=== PATIENT | male | born 1960 | race Caucasian/White ===

== ENCOUNTER 2019-05-16 20:09 | Inpatient (IN) ==
[2019-05-16] MEDS ORDERED: OPTIRAY 320 125ml IV PRN (20:54)
[2019-05-16 21:00] LABS: Basophils # (auto) 0.02 K/uL (0-0.2); Basophils % (auto) 0.3 %; Eosinophils # (auto) 0.06 K/uL (0-0.5); Hematocrit (blood only) 42.1 % (42-52); Hemoglobin 15.2 g/dL (14.0-18.0); Immature Granulocytes # (auto) 0.01 K/uL (0.00-0.02); Immature Granulocytes % (auto) 0.2 %; Lymphocytes # (auto) 2.27 K/uL (1.2-3.4); Lymphocytes % (auto) 37.9 %; Mean Corpuscular Hgb Conc 36.1 g/dL (32-36); Mean Corpuscular Volume 89.2 fL (80-100); Mean Platelet Volume 10.2 fL (7.4-10.4); Monocytes # (auto) 0.67 K/uL (0.11-0.59); Monocytes % (auto) 11.2 %; Neutrophils # (auto) 2.96 K/uL (1.4-6.5); Neutrophils % (auto) 49.4 %; Platelet Count 238 K/uL (130-400); RDW Coefficient of Variation 13.1 % (11.5-14.5); RDW Standard Deviation 43.1 fL (36.4-46.3); Red Blood Count 4.72 M/uL (4.7-6.1); White Blood Count 5.99 K/uL (4.8-10.8)
--- NOTE | 2019-05-16 21:04 | CT Scan Report ---
CT head/brain wo con CLINICAL HISTORY: 59 years-old Male with Stroke evaluation left facial numbness/aphasia. Acute strok elike symptoms TECHNIQUE: Multiple axial CT images of the head were obtained without contrast. A dose lowering tech nique was utilized adhering to the principles of ALARA. CT DOSE: 1374.67 mGy.cm COMPARISON: None. FINDINGS: No acute intracranial hemorrhage, midline shift, intracranial mass, hydrocephalus, territorial ischem ia or abnormal extra-axial collection. Cerebral vascular calcifications are noted. The calvarium is intact. The paranasal sinuses, mastoid air cells, and middle ear cavities are clear . IMPRESSION: No acute intracranial abnormality. The above report was generated using voice recognition software. It may contain grammatical, syntax o r spelling errors. Electronically signed by: Lebron Zamora M.D. 05/16/2019 9:03 PM
[2019-05-16 21:11] LABS: INR 1.1 (0.9-1.1); Partial Thromboplastin Time 26.2 Seconds (21.0-31.0); Prothrombin Time 11.5 Seconds (9.0-12.0)
[2019-05-16 21:15] LABS: Albumin Level 4.5 gm/dl (3.4-5.0); Blood Urea Nitrogen 12 mg/dl (7-18); Calcium 9.1 mg/dl (8.5-10.1); Carbon Dioxide 28 mmol/L (21-32); Chloride 98 mmol/L (98-107); Glucose 102 mg/dl (70-99); Magnesium 2.2 mg/dl (1.8-2.4); Potassium 3.4 mmol/L (3.5-5.1); Sodium 133 mmol/L (136-145)
[2019-05-16 21:17] LABS: Alanine Aminotransferase 42 U/L (12-78); Aspartate Aminotransferase 30 U/L (15-37); BUN Creatinine Ratio 12.2 (10-20); Creatinine Clr Calc Pharmacy 91.6 ml/min; Est GFR (African American) 94.1; Est GFR (Non-African American) 81.2
--- NOTE | 2019-05-16 21:21 | CT Scan Report ---
CT angio neck with con, CT angio head w con CLINICAL HISTORY: 59 years-old Male with stroke. Acute strokelike symptoms COMPARISON STUDY: CT head of same day TECHNIQUE: Following the IV administration of 116 of Optiray 320, CT angiogram of the head and neck w as performed from the aortic arch to the skull base. Images are reviewed in the axial, sagittal, and coronal planes. 3-D MIPS images are created and assessed. IV contrast was administered without compli cation. All measurements were calculated based on NASCET criteria. A dose lowering technique was uti lized adhering to the principles of ALARA. FINDINGS: Thoracic aortic arch is unremarkable. Patency of the imaged bilateral subclavian arteries. Bilateral common carotid arteries are widely patent. Bilateral internal carotid arteries are also patent and wi thin normal limits. Mild degree of calcified plaque noted about the supraclinoid segments bilaterally . The bilateral middle and anterior cerebral arteries appear patent. The right vertebral artery is do minant. Mild calcified plaque at the origin of the right vertebral artery without significant stenosi s. The left vertebral artery also appears patent. Basilar artery is patent and within normal limits. Patency of the bilateral posterior cerebral arteries. There is no aneurysm, dissection, high-grade st enosis or proximal branch occlusion identified. Cerebral venous sinuses appear patent. No pneumothorax. Homogeneous thyroid. No adenopathy. Patent airway. Mastoid air cells and middle ear cavities are clear. Minimal polypoid mucosal thickening of the maxillary sinuses. Mild leftward bowin g and spurring of the nasal septum. IMPRESSION:Unremarkable CTA of the head and neck without aneurysm, dissection, high-grade stenosis or proximal branch occlusion. The above report was generated using voice recognition software. It may contain grammatical, syntax o r spelling errors. Electronically signed by: Lebron Zamora M.D. 05/16/2019 9:20 PM
[2019-05-16 21:22] LABS: Albumin Globulin Ratio 1.5 (0.9-2); Alkaline Phosphatase 50 U/L (45-117); Bilirubin,Total 0.4 mg/dl (0.2-1); Total Protein 7.5 gm/dl (6.4-8.2); Troponin I < 0.015 ng/ml (0-0.045)
--- NOTE | 2019-05-16 23:28 | History & Physical Report ---
Date of Service May 16, 2019 Assessment & Plan (1) TIA (transient ischemic attack): TIA/numbness and tingling of left side of face/aphasia- CT of head, and CTA of head neck are both normal. Will order MRI brain without contrast. Order arterial hypercoagulable work-up. Order complete echocardiogram. Continue aspirin. Consult neurology. Stroke without TPA protocol. Present on Admission?: Yes (2) Numbness and tingling of left side of face: See above Present on Admission?: Yes (3) Aphasia: See above Present on Admission?: Yes (4) CAD (coronary artery disease), [place] coronary artery: CAD/hypertension/first-degree heart block- The patient will be admitted to telemetry for serial cardiac enzymes, serial EKG's, cardiac rhythm monitoring and a 2-D echocardiogram with Dopplers. Reports having had a cardiac catheterization done a few years ago while in [place], and was told that he had a 40% blockage. On aspirin 81 mg daily, Bystolic 5 mg p.o. at bedtime, verapamil 120 mg p.o. twice daily and valsartan/HCTZ every morning. Hold valsartan/HCTZ for now, due to low sodium and potassium. Present on Admission?: Yes (5) Hypertension: See above Present on Admission?: Yes (6) Atrioventricular block, first degree: See above Present on Admission?: Yes (7) Hyperlipidemia: Continue rosuvastatin 20 mg at bedtime. Check a fasting lipid panel and hemoglobin A1c. Present on Admission?: Yes (8) Asthma: Albuterol HFA 2 puffs every 4 hours as needed Present on Admission?: Yes (9) Gout: Continue allopurinol 100 mg p.o. twice daily Present on Admission?: Yes (10) Allergic rhinitis: Continue Zyrtec 10 mg every morning, montelukast 10 mg daily and Flonase 1 spray each nostril twice daily. Present on Admission?: Yes (11) GERD (gastroesophageal reflux disease): Continue omeprazole 20 mg p.o. daily, may change to pantoprazole 40 mg daily Present on Admission?: Yes History of Present Illness Chief Complaint: The patient presents to the emergency department as a stroke alert, due to symptoms that began about 30 minutes prior to arrival. The Patient and his reports that he had developed a bit of an upset stomach, had gone to the restroom and attempted to move his bowels, and when he returned to the table he was disoriented, unable to clearly get his words out, and developed left facial numbness. His symptoms had resolved by the time of his arrival in the emergency department. He has not had these type of symptoms in the past. He has been doing more physical activity lately, as they have just moved here from [place] 1 month ago, and has just been moving in to their house from a rental apartment over the past 2 weeks. Primary Care Provider: Guero Gonzalez DO Allergies Allergy/AdvReac Type Severity Reaction Status Date / Time No Known Allergies Allergy Verified 05/16/19 21:58 Home Medications Home Medications Medication Instructions Recorded Confirmed Type albuterol sulfate [ProAir HFA] 2 puff INHALATION Q4H PRN 05/16/19 05/16/19 History allopurinol 100 mg PO BID 05/16/19 05/16/19 History aspirin 81 mg PO HS 05/16/19 05/16/19 History cetirizine [Zyrtec] 10 mg PO QAM 05/16/19 05/16/19 History fluticasone propionate [Flonase 1 spray INTRANASAL BID 05/16/19 05/16/19 History Allergy Relief] montelukast 10 mg PO HS 05/16/19 05/16/19 History naproxen 500 mg PO BID PRN 05/16/19 05/16/19 History nebivolol [Bystolic] 5 mg PO HS 05/16/19 05/16/19 History omeprazole 20 mg PO QAM 05/16/19 05/16/19 History rosuvastatin 20 mg PO HS 05/16/19 05/16/19 History valsartan-hydrochlorothiazide 1 tab PO QAM 05/16/19 05/16/19 History verapamil 120 mg PO BID 05/16/19 05/16/19 History Past Med/Surg History Family History Father Myocardial infarction Social History Preferred Language: Danish Communication Ability: Effective Grade Setter Required: No Beliefs That Will Affect Care: None Current Living Situation: Spouse Other Information That Helps Us Care for You: No Feels Safe at Home: Yes Safety Concerns: Feels Safe At This Time Smoking Status: Never smoker Do You Dip or Chew Tobacco: No Second Hand Exposure: No Tobacco Cessation Education Requested by Patient: No Hx Alcohol Use: Yes Alcohol type: beer Hx Substance Use: No Review of Systems Review of Systems: The patient denies chest pain, palpitations, shortness of breath, dyspnea on exertion, cough, lower extremity swelling, sore throat, fevers, chills, sweats, vomiting, diarrhea , constipation, abdominal pain, pelvic pain, blood in urine or stool, dysuria, urinary frequency or urgency, loss of consciousness, rash, abnormal bruising or bleeding, imbalance, focal or generalized weakness, numbness or tingling in arms or legs, generalized arthralgias or myalgias, back or neck pain, or night sweats. The review of systems is otherwise negative other than for that already noted above, and at least 10 systems have been reviewed. Physical Exam Physical Exam: The patient is awake, alert and oriented 3, well developed and well nourished, normocephalic and atraumatic, lying in bed and in no acute distress. HEENT--PERRL, EOMI, mucous membranes and oropharynx normal. Neck--supple. No JVD. No bruits. Thyroid normal, trachea midline, no adenopathy. Heart--normal S1 and S2. No murmurs, rubs or gallops. Lungs--clear bilaterally, no respiratory distress, no accessory muscle use. Abdomen--normal bowel sounds and soft. Nontender. Nondistended. Mildly tympanitic. Extremities--no cyanosis or clubbing. No edema. There are good distal pulses b/l. Dermatologic--normal skin turgor, normal color, no abnormal lymph nodes, no rash. Neurologic--cranial nerves II through XII grossly intact. Rheumatologic--normal range of motion. Psychiatric--normal affect. Results & Data Vital Signs (Past 12 Hours) Vital Signs Temp Pulse Pulse Resp BP BP Pulse Ox 05/16/19 23:16 63 18 120/86 98 05/16/19 22:31 64 18 135/104 H 97 05/16/19 20:18 97.3 F L 60 18 145/93 H 99 Laboratory Results Laboratory Results WBC 5.99 K/uL (4.8-10.8) 05/16/19 20:45 RBC 4.72 M/uL (4.7-6.1) 05/16/19 20:45 Hgb 15.2 g/dL (14.0-18.0) 05/16/19 20:45 Hct 42.1 % (42-52) 05/16/19 20:45 MCV 89.2 fL (80-100) 05/16/19 20:45 MCH 32.2 pg (25-34) 05/16/19 20:45 MCHC 36.1 g/dL (32-36) H 05/16/19 20:45 RDW Std Deviation 43.1 fL (36.4-46.3) 05/16/19 20:45 RDW Coeff of Nafisa 13.1 % (11.5-14.5) 05/16/19 20:45 Plt Count 238 K/uL (130-400) 05/16/19 20:45 MPV 10.2 fL (7.4-10.4) 05/16/19 20:45 Immature Gran % (Auto) 0.2 % 05/16/19 20:45 Neut % (Auto) 49.4 % 05/16/19 20:45 Lymph % (Auto) 37.9 % 05/16/19 20:45 [place] % (Auto) 11.2 % 05/16/19 20:45 Eos % (Auto) 1.0 % 05/16/19 20:45 Baso % (Auto) 0.3 % 05/16/19 20:45 Immature Gran # (Auto) 0.01 K/uL (0.00-0.02) 05/16/19 20:45 Neut # (Auto) 2.96 K/uL (1.4-6.5) 05/16/19 20:45 Lymph # (Auto) 2.27 K/uL (1.2-3.4) 05/16/19 20:45 [place] # (Auto) 0.67 K/uL (0.11-0.59) H 05/16/19 20:45 Eos # (Auto) 0.06 K/uL (0-0.5) 05/16/19 20:45 Baso # (Auto) 0.02 K/uL (0-0.2) 05/16/19 20:45 PT 11.5 Seconds (9.0-12.0) 05/16/19 20:45 INR 1.1 (0.9-1.1) 05/16/19 20:45 APTT 26.2 Seconds (21.0-31.0) 05/16/19 20:45 PTT Ratio 1.0 05/16/19 20:45 Sodium 133 mmol/L (136-145) L 05/16/19 20:45 Potassium 3.4 mmol/L (3.5-5.1) L 05/16/19 20:45 Chloride 98 mmol/L (98-107) 05/16/19 20:45 Carbon Dioxide 28 mmol/L (21-32) 05/16/19 20:45 Anion Gap 7.0 (3-11) 05/16/19 20:45 BUN 12 mg/dl (7-18) 05/16/19 20:45 Creatinine 1.02 mg/dl (0.6-1.4) 05/16/19 20:45 Est Cr Clr Drug Dosing 91.6 ml/min 05/16/19 20:45 Est GFR ( Amer) 94.1 05/16/19 20:45 Est GFR (Non-Af Amer) 81.2 05/16/19 20:45 BUN/Creatinine Ratio 12.2 (10-20) 05/16/19 20:45 Glucose 102 mg/dl (70-99) H 05/16/19 20:45 POC Glucose 107 (70-99) H 05/16/19 20:46 Calcium 9.1 mg/dl (8.5-10.1) 05/16/19 20:45 Magnesium 2.2 mg/dl (1.8-2.4) 05/16/19 20:45 Total Bilirubin 0.4 mg/dl (0.2-1) 05/16/19 20:45 AST 30 U/L (15-37) 05/16/19 20:45 ALT 42 U/L (12-78) 05/16/19 20:45 Alkaline Phosphatase 50 U/L (45-117) 05/16/19 20:45 Troponin I < 0.015 ng/ml (0-0.045) 05/16/19 20:45 Total Protein 7.5 gm/dl (6.4-8.2) 05/16/19 20:45 Albumin 4.5 gm/dl (3.4-5.0) 05/16/19 20:45 Globulin 3.0 gm/dl (2.5-4.0) 05/16/19 20:45 Albumin/Globulin Ratio 1.5 (0.9-2) 05/16/19 20:45 Blood Type A Positive 05/16/19 20:45 Antibody Screen NEGATIVE 05/16/19 20:45 Diagnostic Findings [place], [place] [phone] CT Scan Report Patient: KORINA GR Date: 05/16/19 MR#: [id number]: [address] Acct ID:[id number]: Date: 1960[facility] Zip: [place] [address] Age: 59Location: ED Sex: M Room/Bed: Att Phy: Diagnosis: SICK AT DINNER, CLAMMY, FOGGY, DIZZY Shira Phy: Guero Gonzalez, DOService Date: 05/16/19 Fam Phy: Interpreting Phy: Gabo Zamora Admit Phy: Ordering Phy: Amilcar Porter MD cc: ~ CT angio neck with con, CT angio head w con CLINICAL HISTORY: 59 years-old Male with stroke. Acute strokelike symptoms COMPARISON STUDY: CT head of same day TECHNIQUE: Following the IV administration of 116 of Optiray 320, CT angiogram of the head and neck was performed from the aortic arch to the skull base. Images are reviewed in the axial, sagittal, and coronal planes. 3-D MIPS images are created and assessed. IV contrast was administered without complication. All measurements were calculated based on NASCET criteria. A dose lowering technique was utilized adhering to the principles of ALARA. FINDINGS: Thoracic aortic arch is unremarkable. Patency of the imaged bilateral subclavian arteries. Bilateral common carotid arteries are widely patent. Bilateral internal carotid arteries are also patent and within normal limits. Mild degree of calcified plaque noted about the supraclinoid segments bilaterally. The bilateral middle and anterior cerebral arteries appear patent. The right vertebral artery is dominant. Mild calcified plaque at the origin of the right vertebral artery without significant stenosis. The left vertebral artery also appears patent. Basilar artery is patent and within normal limits. Patency of the bilateral posterior cerebral arteries. There is no aneurysm, dissection, high-grade stenosis or proximal branch occlusion identified. Cerebral venous sinuses appear patent. No pneumothorax. Homogeneous thyroid. No adenopathy. Patent airway. Mastoid air cells and middle ear cavities are clear. Minimal polypoid mucosal thickening of the maxillary sinuses. Mild leftward bowing and spurring of the nasal septum. IMPRESSION:Unremarkable CTA of the head and neck without aneurysm, dissection, high-grade stenosis or proximal branch occlusion. The above report was generated using voice recognition software. It may contain grammatical, syntax or spelling errors. Electronically signed by: Lebron Zamora M.D. 05/16/2019 9:20 PM Dictated: 05/16/192112 Transcribed: 05/16/192112 [place], [place] [phone] CT Scan Report Patient: KORINA GR Date: 05/16/19 MR#: [id number]: [address] [place] [address] Acct ID:[id number]: Date: [address] [place] [address] Zip: [place] [address] Age: 59Location: ED Sex: M Room/Bed: Att Phy: Diagnosis: SICK AT DINNER, CLAMMY, FOGGY, DIZZY Shira Phy: Guero Gonzalez, DOService Date: 05/16/19 Fam Phy: Interpreting Phy: Gabo Zamora Admit Phy: Ordering Phy: Amilcar Porter MD cc: ~ CT head/brain wo con CLINICAL HISTORY: 59 years-old Male with Stroke evaluation left facial numbness/aphasia. Acute strokelike symptoms TECHNIQUE: Multiple axial CT images of the head were obtained without contrast. A dose lowering technique was utilized adhering to the principles of ALARA. CT DOSE: 1374.67 mGy.cm COMPARISON: None. FINDINGS: No acute intracranial hemorrhage, midline shift, intracranial mass, hydrocephalus, territorial ischemia or abnormal extra-axial collection. Cerebral vascular calcifications are noted. The calvarium is intact. The paranasal sinuses, mastoid air cells, and middle ear cavities are clear. IMPRESSION: No acute intracranial abnormality. The above report was generated using voice recognition software. It may contain grammatical, syntax or spelling errors. Electronically signed by: Lebron Zamora M.D. 05/16/2019 9:03 PM Dictated: 05/16/192100 Transcribed: 05/16/192100 Code Status & VTE Plan Code Status Full code VTE Prophylaxis Plan VTE Prophylaxis will be ordered: Yes PG Care Time/CCT Total # of Minutes Spent Total Time Spent with Patient: Total time spent is greater than 50% in coordination of care (as documented) at patient's floor/unit and/or counseling patient:
[2019-05-17] MEDS ORDERED: ONDANSETRON INJ 2 MG/ML 2 ML VIAL IV PRN (00:41)
[2019-05-17] MEDS ORDERED: MAGNESIUM HYDROXIDE SUSP 30 ML UDC PO PRN (00:41)
[2019-05-17] MEDS ORDERED: ALBUTEROL HFA 8 GM INHALER INH PRN (00:41)
[2019-05-17] MEDS ORDERED: NAPROXEN 250 MG TAB PO PRN (00:41)
[2019-05-17] MEDS ORDERED: ALUMINUM/MAGNESIUM SUSP 30 ML UDC PO PRN (00:41)
[2019-05-17] MEDS ORDERED: ACETAMINOPHEN 325 MG TAB PO PRN (00:41)
--- NOTE | 2019-05-17 01:19 | Emergency Department Note ---
Entered by Fátima Erickson acting as a scribe for Amilcar Porter MD History of Present Illness General Chief complaint: Illness Stated complaint: SICK AT DINNER, CLAMMY, FOGGY, DIZZY Source: patient and family () History of Present Illness Provider complaint: difficulty with speech Onset (ago): minute(s) 30 Location: head Pain Consistency: + other (episode) Maximum Pain Intensity: 1 Relieved By: + none Associated symptoms: + other (+upper abdominal pain, +tingling in left side of face ); no chest pain The patient is a 59 year old male who presents to the Emergency Room with complaints of an episode of difficulty of speech that occurred 30 minutes ago. The patient states that he was experiencing difficulty with his speech at 1999 today at dinner. He reports that he felt somewhat ill earlier today but this resolved. He notes that at 194 he felt nauseous after he ate and took a Tums and felt better. He notes that he was experiencing upper abdominal pain and felt like he was experiencing indigestion. He describes the abdominal pain as a pressure-like sensation. He felt like he had to pass gas or burp and he would feel better. He did have some chest discomfort but he described this as reflux. He has had a prior history of reflux. At 1999 the patients reported that the patient seemed confused and was having difficulty responding to her. She states that the patient was diaphoretic and had a heart rate of 53. The patient states that he was able to comprehend what she was saying, but could not process it quickly and had trouble finding words to respond to her. This lasted about 2 minutes but he states that currently he feels like his mentation is slower than usual. The states that the patient did not have slurred speech. She denies that he had a facial droop. The patient denies any loss of consciousness. He notes that he feels lightheaded currently and feels fatigued. He states that he is experiencing tingling on the lower left side of his face. He states that it feels like pins and needles. He stated that this just started while in the ED. The patient reports that his father has a history of a heart attack at 57 and his grandfather also had a heart attack in his 50s. He reports that he had a heart catheterization done 2 years ago which showed 40% lesion in one artery and 20% in another. Home Medications Home Medications Medication Instructions Recorded Confirmed Type albuterol sulfate [ProAir HFA] 2 puff INHALATION Q4H PRN 05/16/19 05/16/19 History allopurinol 100 mg PO BID 05/16/19 05/16/19 History aspirin 81 mg PO HS 05/16/19 05/16/19 History cetirizine [Zyrtec] 10 mg PO QAM 05/16/19 05/16/19 History fluticasone propionate [Flonase 1 spray INTRANASAL BID 05/16/19 05/16/19 History Allergy Relief] montelukast 10 mg PO HS 05/16/19 05/16/19 History naproxen 500 mg PO BID PRN 05/16/19 05/16/19 History nebivolol [Bystolic] 5 mg PO HS 05/16/19 05/16/19 History omeprazole 20 mg PO QAM 05/16/19 05/16/19 History rosuvastatin 20 mg PO HS 05/16/19 05/16/19 History valsartan-hydrochlorothiazide 1 tab PO QAM 05/16/19 05/16/19 History verapamil 120 mg PO BID 05/16/19 05/16/19 History Allergies Allergy/AdvReac Type Severity Reaction Status Date / Time No Known Allergies Allergy Verified 05/16/19 21:58 Past Med/Surg History Family History Father Myocardial infarction Social History Preferred Language: Nicaraguan Communication Ability: Effective Director Of Infection Control Required: No Beliefs That Will Affect Care: None Current Living Situation: Spouse Other Information That Helps Us Care for You: No Feels Safe at Home: Yes Safety Concerns: Feels Safe At This Time Smoking Status: Never smoker Do You Dip or Chew Tobacco: No Second Hand Exposure: No Tobacco Cessation Education Requested by Patient: No Hx Alcohol Use: Yes Alcohol type: beer Hx Substance Use: No Review of Systems See HPI for pertinent positives & negatives. and A total of 10 systems reviewed and were otherwise negative Physical Exam Vital Signs Vital Signs - 24 hr 05/16/19 20:18 05/16/19 22:31 05/16/19 23:16 Temperature 36.3 C L Temperature Source Oral Sepsis Recent Fever Within 48 Hours No Sepsis New/Unexplained Change in Mental Status No Sepsis Action Taken by Nursing No Action Required Pulse Rate 60 Pulse Rate [Apical] 64 63 Respiratory Rate 18 18 18 Blood Pressure 145/93 H Blood Pressure [Right Arm] 135/104 H 120/86 Blood Pressure Mean 110 Blood Pressure Mean [Right Arm] 114 97 Pulse Oximetry 99 97 98 Oxygen Delivery Method Room Air Room Air Constitutional: Vital signs reviewed. Eyes: Pupils are equal round reactive to light. Conjunctiva are noninjected. ENT: Pharynx is clear without erythema or exudate. Mucous membranes are moist. Neck supple without meningeal signs. Respiratory: Clear to auscultation bilaterally. Breath sounds are equal bilaterally. Cardiovascular: Regular rate and rhythm. No rubs or gallops. GI: Soft, nondistended and nontender. Bowel sounds are present. Musculoskeletal: No peripheral edema. No lower extremity tenderness. Integumentary: No cyanosis. Neurological: The patient is awake and alert. Cranial nerves II-XII are intact, except dysesthesia to left upper, mid face, and scalp. Motor is 5 out of 5 all extremities. Sensation is intact to light touch all extremities. Normal speech. No pronator drift. No limb ataxia. Psychiatric: Anxious appearing. Course 2028: The patient was evaluated in room C9, and a complete history and physical examination were performed. 2045: I reevaluated the patient, the states that the patient's last known well was at 1945. I discussed IV TPA with the patient and his , they agreed that it was generally not indicated at this time and has a preference not using it. 2146: I [facility] the [facility], he states that the patient is not likely a TPA candidate. 2146: [facility], he states that the patient might be having an atypical migraine and recommends an MRI. 2154: I reevaluated the patient and updated him on his results, he states that his symptoms have completely resolved. He agrees on the plan to be further evaluated by a hospitalist. 2199: [facility] he will [facility] the patient for further evaluation. Consultations Consultation #1: Dr. Reichwein- [facility] Time: 21:47 Consultation #2: Dr. Stephens- [facility] Hospitalist Time: 22:00 Administered Medications Ioversol (Optiray 320 125ml) 116 ml IV ONCE PRN PRN Reason: Interaction Checking Stop: 05/20/19 20:53 Last Admin: 05/16/19 20:54 Dose: 116 ml Documented by: [id number] Medical Decision Making Differential Diagnosis Differential diagnoses include CVA, TIA, intracranial mass, atypical migraine, ACS, and GERD. Medical Records Attestation: I reviewed the patient's medical records. I did perform a limited focused review of portions of the patient's old chart on the electronic medical record. The patient has had no recent pertinent visits to this hospital. Home Medications Current Medication List: was personally reviewed by me Laboratory Data Attestation: I reviewed the patient's lab results. Result diagrams: 05/16/19 20:45 05/16/19 20:45 Lab Results 05/16/19 05/16/19 05/16/19 Range/Units 20:45 20:45 20:45 WBC 5.99 (4.8-10.8) K/uL RBC 4.72 (4.7-6.1) M/uL Hgb 15.2 (14.0-18.0) g/dL Hct 42.1 (42-52) % MCV 89.2 (80-100) fL MCH 32.2 (25-34) pg MCHC 36.1 H (32-36) g/dL RDW Std Deviation 43.1 (36.4-46.3) fL RDW Coeff of Nafisa 13.1 (11.5-14.5) % Plt Count 238 (130-400) K/uL MPV 10.2 (7.4-10.4) fL Immature Gran % (Auto) 0.2 % Neut % (Auto) 49.4 % Lymph % (Auto) 37.9 % Barron % (Auto) 11.2 % Eos % (Auto) 1.0 % Baso % (Auto) 0.3 % Immature Gran # (Auto) 0.01 (0.00-0.02) K/uL Neut # (Auto) 2.96 (1.4-6.5) K/uL Lymph # (Auto) 2.27 (1.2-3.4) K/uL Barron # (Auto) 0.67 H (0.11-0.59) K/uL Eos # (Auto) 0.06 (0-0.5) K/uL Baso # (Auto) 0.02 (0-0.2) K/uL PT 11.5 (9.0-12.0) Seconds INR 1.1 (0.9-1.1) APTT 26.2 (21.0-31.0) Seconds PTT Ratio 1.0 Sodium 133 L (136-145) mmol/L Potassium 3.4 L (3.5-5.1) mmol/L Chloride 98 (98-107) mmol/L Carbon Dioxide 28 (21-32) mmol/L Anion Gap 7.0 (3-11) BUN 12 (7-18) mg/dl Creatinine 1.02 (0.6-1.4) mg/dl Est Cr Clr Drug Dosing 91.6 ml/min Est GFR ( Amer) 94.1 Est GFR (Non-Af Amer) 81.2 BUN/Creatinine Ratio 12.2 (10-20) Glucose 102 H (70-99) mg/dl POC Glucose (70-99) Calcium 9.1 (8.5-10.1) mg/dl Magnesium 2.2 (1.8-2.4) mg/dl Total Bilirubin 0.4 (0.2-1) mg/dl AST 30 (15-37) U/L ALT 42 (12-78) U/L Alkaline Phosphatase 50 (45-117) U/L Troponin I < 0.015 (0-0.045) ng/ml Total Protein 7.5 (6.4-8.2) gm/dl Albumin 4.5 (3.4-5.0) gm/dl Globulin 3.0 (2.5-4.0) gm/dl Albumin/Globulin Ratio 1.5 (0.9-2) Blood Type Antibody Screen 05/16/19 05/16/19 Range/Units 20:45 20:46 WBC (4.8-10.8) K/uL RBC (4.7-6.1) M/uL Hgb (14.0-18.0) g/dL Hct (42-52) % MCV (80-100) fL MCH (25-34) pg MCHC (32-36) g/dL RDW Std Deviation (36.4-46.3) fL RDW Coeff of Nafisa (11.5-14.5) % Plt Count (130-400) K/uL MPV (7.4-10.4) fL Immature Gran % (Auto) % Neut % (Auto) % Lymph % (Auto) % Barron % (Auto) % Eos % (Auto) % Baso % (Auto) % Immature Gran # (Auto) (0.00-0.02) K/uL Neut # (Auto) (1.4-6.5) K/uL Lymph # (Auto) (1.2-3.4) K/uL Barron # (Auto) (0.11-0.59) K/uL Eos # (Auto) (0-0.5) K/uL Baso # (Auto) (0-0.2) K/uL PT (9.0-12.0) Seconds INR (0.9-1.1) APTT (21.0-31.0) Seconds PTT Ratio Sodium (136-145) mmol/L Potassium (3.5-5.1) mmol/L Chloride (98-107) mmol/L Carbon Dioxide (21-32) mmol/L Anion Gap (3-11) BUN (7-18) mg/dl Creatinine (0.6-1.4) mg/dl Est Cr Clr Drug Dosing ml/min Est GFR ( Amer) Est GFR (Non-Af Amer) BUN/Creatinine Ratio (10-20) Glucose (70-99) mg/dl POC Glucose 107 H (70-99) Calcium (8.5-10.1) mg/dl Magnesium (1.8-2.4) mg/dl Total Bilirubin (0.2-1) mg/dl AST (15-37) U/L ALT (12-78) U/L Alkaline Phosphatase (45-117) U/L Troponin I (0-0.045) ng/ml Total Protein (6.4-8.2) gm/dl Albumin (3.4-5.0) gm/dl Globulin (2.5-4.0) gm/dl Albumin/Globulin Ratio (0.9-2) Blood Type A Positive Antibody Screen NEGATIVE Imaging Data Radiologist's Impression: Radiology results as stated below per my review and the radiologist's interpretation: CT angio neck with con, CT angio head w con CLINICAL HISTORY: 59 years-old Male with stroke. Acute strokelike symptoms COMPARISON STUDY: CT head of same day TECHNIQUE: Following the IV administration of 116 of Optiray 320, CT angiogram of the head and neck was performed from the aortic arch to the skull base. Images are reviewed in the axial, sagittal, and coronal planes. 3-D MIPS images are created and assessed. IV contrast was administered without complication. All measurements were calculated based on NASCET criteria. A dose lowering technique was utilized adhering to the principles of ALARA. FINDINGS: Thoracic aortic arch is unremarkable. Patency of the imaged bilateral subclavian arteries. Bilateral common carotid arteries are widely patent. Bilateral internal carotid arteries are also patent and within normal limits. Mild degree of calcified plaque noted about the supraclinoid segments bilaterally. The bilateral middle and anterior cerebral arteries appear patent. The right vertebral artery is dominant. Mild calcified plaque at the origin of the right vertebral artery without significant stenosis. The left vertebral artery also appears patent. Basilar artery is patent and within normal limits. Patency of the bilateral posterior cerebral arteries. There is no aneurysm, dissection, high-grade stenosis or proximal branch occlusion identified. Cerebral venous sinuses appear patent. No pneumothorax. Homogeneous thyroid. No adenopathy. Patent airway. Mastoid air cells and middle ear cavities are clear. Minimal polypoid mucosal thickening of the maxillary sinuses. Mild leftward bowing and spurring of the nasal septum. IMPRESSION:Unremarkable CTA of the head and neck without aneurysm, dissection, high-grade stenosis or proximal branch occlusion. The above report was generated using voice recognition software. It may contain grammatical, syntax or spelling errors. Electronically signed by: Lebron Zamora M.D. 05/16/2019 9:[address] head/brain wo con CLINICAL HISTORY: 59 years-old Male with Stroke evaluation left facial numbness/aphasia. Acute strokelike symptoms TECHNIQUE: Multiple axial CT images of the head were obtained without contrast. A dose lowering technique was utilized adhering to the principles of ALARA. CT DOSE: 1374.67 mGy.cm COMPARISON: None. FINDINGS: No acute intracranial hemorrhage, midline shift, intracranial mass, hydrocephalus, territorial ischemia or abnormal extra-axial collection. Cerebral vascular calcifications are noted. The calvarium is intact. The paranasal sinuses, mastoid air cells, and middle ear cavities are clear. IMPRESSION: No acute intracranial abnormality. The above report was generated using voice recognition software. It may contain grammatical, syntax or spelling errors. Electronically signed by: Lebron Zamora M.D. 05/16/2019 9:[address] angio neck with con, CT angio head w con CLINICAL HISTORY: 59 years-old Male with stroke. Acute strokelike symptoms COMPARISON STUDY: CT head of same day TECHNIQUE: Following the IV administration of 116 of Optiray 320, CT angiogram of the head and neck was performed from the aortic arch to the skull base. Images are reviewed in the axial, sagittal, and coronal planes. 3-D MIPS images are created and assessed. IV contrast was administered without complication. All measurements were calculated based on NASCET criteria. A dose lowering technique was utilized adhering to the principles of ALARA. FINDINGS: Thoracic aortic arch is unremarkable. Patency of the imaged bilateral subclavian arteries. Bilateral common carotid arteries are widely patent. Bilateral internal carotid arteries are also patent and within normal limits. Mild degree of calcified plaque noted about the supraclinoid segments bilaterally. The bilateral middle and anterior cerebral arteries appear patent. The right vertebral artery is dominant. Mild calcified plaque at the origin of the right vertebral artery without significant stenosis. The left vertebral artery also appears patent. Basilar artery is patent and within normal limits. Patency of the bilateral posterior cerebral arteries. There is no aneurysm, dissection, high-grade stenosis or proximal branch occlusion identified. Cerebral venous sinuses appear patent. No pneumothorax. Homogeneous thyroid. No adenopathy. Patent airway. Mastoid air cells and middle ear cavities are clear. Minimal polypoid mucosal thickening of the maxillary sinuses. Mild leftward bowing and spurring of the nasal septum. IMPRESSION:Unremarkable CTA of the head and neck without aneurysm, dissection, high-grade stenosis or proximal branch occlusion. The above report was generated using voice recognition software. It may contain grammatical, syntax or spelling errors. Electronically signed by: Lebron Zamora M.D. 05/16/2019 9:20 PM ECG Data Attestation: I personally reviewed and interpreted this ECG as follows: Indication: chest pain Rate (beats per minute): 66 Rhythm: sinus rhythm Findings: + 1st degree AV block; no PVC and no ST elevation Blood Pressure Blood Pressure Findings: Elevated blood pressure Blood Pressure Disposition: further management by hospitalist VERONA Narrative I did evaluate the patient as noted above. I did obtain history from the patient as well as his . He is presenting with symptoms concerning for possible CVA. He has expressive aphasia and some confusion and currently states that his mentation is slow. He also stated that he developed tingling and numbness to the left side of his face and scalp while in the ED. He also had some chest discomfort which she describes as reflux and indigestion but has a strong cardiac history and was noted to be diaphoretic by his . He does have a known history of CAD based on his prior catheterization 2 years ago. I did immediately call a stroke alert. IV access was established. The patient was placed on a continuous monitoring engineer. I did order a stat CT of the head as well as CT angiogram of the head and neck. I did review the images myself as well as the radiology report as described above. This did not show any acute abnormality. I did discuss the case with the [place] stroke neurologist to evaluated the patient here via telemedicine. I did order and personally review the patient's 12-lead EKG as described above. He has no acute ischemic changes on his twelve-lead EKG. He does have a first-degree AV block. I did order and review the patient's blood work as noted in the electronic medical record. Troponin is negative. He has mild hypokalemia and hyponatremia. On reassessment the patient states his symptoms are completely resolved. He no longer has tingling to the left side of his face. He feels much better. I did discuss his case with the stroke neurologist who agreed that TPA was not indicated. He did recommend MRI. I did discuss the test results with the patient and recommended hospitalization for MRI and repeat cardiac biomarkers. He was agreeable with this. I did discuss the case with the hospitalist and case fitter. Impression & Plan Aphasia, Numbness and tingling of left side of face, Precordial chest pain, Atrioventricular block, first degree Discharge Plan Visit Data *Final* Discharge Date/Time: 05/17/19 00:14 Chief Complaint: Illness Stated Complaint: SICK AT DINNER, CLAMMY, FOGGY, DIZZY ED Provider: Amilcar Porter Discharge Problem: Aphasia, Numbness and tingling of left side of face, Precordial chest pain, Atrioventricular block, first degree Patient Disposition: Admitted As Inpatient Discharge Instructions Interventions: ED Discharge Assessment Last Done: 05/17/19 00:14 The scribe's documentation has been prepared under my direction and personally reviewed by me in its entirety. I confirm that the note above accurately reflects all work, treatment, procedures, and medical decision making performed by me.
[2019-05-17] MEDS: FLUTICASONE PROPIONATE NA SPR 16 GM BTL SCH ×2 (02:18→08:09)
[2019-05-17] MEDS: ALLOPURINOL 100 MG TAB PO SCH ×2 (02:19→08:09)
[2019-05-17] MEDS: VERAPAMIL HCL 120 MG TABCR PO SCH ×2 (02:20→08:09)
[2019-05-17] MEDS ORDERED: PHARMACIST DISCHARGE MED REC CONSULT PRN (03:48)
[2019-05-17 05:13] LABS: Basophils # (auto) 0.03 K/uL (0-0.2); Basophils % (auto) 0.6 %; Eosinophils # (auto) 0.05 K/uL (0-0.5); Eosinophils % (auto) 0.9 %; Hematocrit (blood only) 43.1 % (42-52); Hemoglobin 15.7 g/dL (14.0-18.0); Immature Granulocytes # (auto) 0.01 K/uL (0.00-0.02); Immature Granulocytes % (auto) 0.2 %; Lymphocytes # (auto) 2.11 K/uL (1.2-3.4); Lymphocytes % (auto) 39.4 %; Mean Corpuscular Hgb Conc 36.4 g/dL (32-36); Mean Corpuscular Volume 88.7 fL (80-100); Monocytes # (auto) 0.45 K/uL (0.11-0.59); Monocytes % (auto) 8.4 %; Neutrophils % (auto) 50.5 %; Platelet Count 236 K/uL (130-400); RDW Coefficient of Variation 13.1 % (11.5-14.5); RDW Standard Deviation 42.6 fL (36.4-46.3); Red Blood Count 4.86 M/uL (4.7-6.1); White Blood Count 5.35 K/uL (4.8-10.8)
[2019-05-17 05:36] LABS: BUN Creatinine Ratio 11.1 (10-20); Blood Urea Nitrogen 10 mg/dl (7-18); Calcium 9.2 mg/dl (8.5-10.1); Carbon Dioxide 27 mmol/L (21-32); Chloride 100 mmol/L (98-107); Creatinine Clr Calc Pharmacy 105.5 ml/min; Est GFR (African American) 110.5; Est GFR (Non-African American) 95.4; Glucose 124 mg/dl (70-99); Potassium 3.2 mmol/L (3.5-5.1); Sodium 135 mmol/L (136-145)
[2019-05-17 05:41] LABS: Chol HDL Ratio 2; Cholesterol 132 mg/dl (0-200); HDL Cholesterol 59 mg/dl; LDL Cholesterol Calculated 42 mg/dl; Triglycerides 156 mg/dl (0-150); Troponin I < 0.015 ng/ml (0-0.045); VLDL Cholesterol 31 mg/dl
[2019-05-17 06:40] LABS: Lyme Ab IgM w/WB Rflx Negative (Negative)
[2019-05-17 06:41] LABS: Lyme Ab IgG w/WB Rflx Negative (Negative)
--- NOTE | 2019-05-17 06:46 | Magnetic Resonance Report ---
MRI OF THE BRAIN WITHOUT IV CONTRAST CLINICAL HISTORY: Left facial numbness. Stroke like symptoms. COMPARISON STUDY: CT of the brain dated 05/16/2019. TECHNIQUE: MRI of the brain was performed utilizing various T1 and T2-weighted sequences in the axial , sagittal, and coronal planes. IV contrast was not administered for this examination. FINDINGS: Brain parenchyma: There is mild subcortical and periventricular microangiopathic disease. There is no hemorrhage or mass effect. There is no restricted diffusion to suggest acute ischemia. Abrams-white ma tter differentiation is preserved. No extra-axial fluid collection is seen. The cerebellar tonsils ar e normal in configuration. Ventricles, sulci, and cisterns: Normal in configuration. Pituitary and sella: Unremarkable. Intracranial vasculature: Normal flow voids are maintained at the skull base. Orbits: The bony orbits are grossly intact. Orbital contents are normal in appearance. Sinuses and mastoids: Clear. Calvarium: Unremarkable. Cervical cord: Partially visualized cervical spinal cord is normal in morphology and signal intensity . IMPRESSION: There is no acute intracranial abnormality. Electronically signed by: Bhaskar Baum M.D. 05/17/2019 6:44 AM
--- NOTE | 2019-05-17 08:34 | Neurology Consultation ---
Date of Consultation May 17, 2019 Assessment & Plan (1) TIA (transient ischemic attack): This patient had episode May 16 consisting of transient word-finding difficulties and slow mentation accompanied by some left lower facial tingling along with some nonspecific symptoms of lightheadedness and feeling tired. All of the symptoms resolved while he was still in the ER and no tPA was given. Patient's blood pressure was elevated when he came to the emergency room and has been mildly elevated since. MRI of the brain showed no stroke but did show mild scattered old small vessel ischemic changes. CT angiography of the head neck were unremarkable for any large or medium vessel stenoses or aneurysms. An echocardiogram is pending. Overall, his event is consistent with a TIA involving the right hemisphere. Alternatively, given his history and hypertension, this could have been a vas ospasm (migraine variant) triggered by hypertension and the stress from the day and heat and humidity. His risk factors for stroke and TIA include hypertension and dyslipidemia. Genetically , he may be susceptible in light of his family history. (2) Hypertension: Patient has a longstanding history of hypertension which was not adequately controlled recently. I note a low potassium and he is on a diuretic not taking potassium supplementation. (3) Hyperlipidemia: Patient has dyslipidemia and currently, on rosuvastatin 20 mg daily, he is doing well, although his triglycerides are till slightly elevated. (4) Chronic cerebral ischemia: Patient has mild old small vessel ischemia scattered. This is likely due to his longstanding hypertension but may be genetic in addition. Recommendations: 1. Awaiting echocardiogram. 2. Consider switching him to clopidogrel 75 mg daily. 3. Control blood pressure as you are doing, aiming for a mean arterial pressure of between 95 and 100. 4. Hemoglobin A1c is pending. He has no history of diabetes. Glucose readings were slightly elevated since admission. 5. The patient has fairly well controlled lipids on his current dose of rosuvastatin. I am not certain he needs high dose statins given his total cho lesterol reading of 132. 6. I can follow up as an outpatient in a couple of weeks, if desired. Overall, I spent a total of 85 minutes with this case including review records, review of MRI films, direct evaluation the patient at bedside, discussion of the case with the patient and his at bedside including reviewing the MRI films at bedside with them, nursing staff at bedside, and Dr. Gonzalez, including differential diagnosis and treatment options. History of Present Illness Reason for Consultation: Patient is a 59-year-old, who I was asked to see the request of Dr. Stephens, for neurologic consultation regarding stroke. Requesting Physician: Dr. Stephens Attending Physician: Munir Gonzalez MD History of Present Illness Patient has a 20 year history of hypertension. He has been on various medications but perhaps has not been quite as controlled recently as he had been in the past. He has some history of coronary artery disease but has never had a history of OR, stroke, diabetes, or cigarette smoking. He does have some mild dyslipidemia has been on rosuvastatin 20 mg daily. He has also been on 81 mg aspirin tablet for the last 8 years. He does not have a history of migraine headaches. Patient up has been doing well physically. He an his family moved from [place] 1 month ago to [facility]. He has been having a little trouble adjusting to the humidity with the heat and has been outside a little more than he was in [place]. On May 16, he was and a work retreat, but felt well throughout the day and had been eating and drinking fluids. Around 330 the afternoon he felt hot and came home needed to cool off and drink fluids. He and his went to eat in the evening and sometime around 730 or so he just did not feel right. He had some GI distress and went to the car and took Tums. He came back and tried to go to the bathroom when he got back to the table sometime closer to 8 o'clock he did not look right according to patient's who was at bedside today. He stated that he did not feel right and felt some tingling along lower left face. He felt slow to get words out. He could understand his but he was slow to respond or formulate a word. According to his he had a bit of a stare and looked clammy and pale. He complained of some chest tightness. He had no stiffness or jerking of the limbs, no incontinence or tongue biting. They drove to the emergency room arriving at 2018, with a blood pressure of 145/113, temperature 36.3, pulse 60, respiratory rate 20, O2 saturation 99%. Arriving at the ER he felt weak and tired with heavy legs. He was lightheaded and felt tingling like pins and needles on the lower part of the left face. Stroke alert was called and he was sent to the CT scan. When he came back from the CT scanner all his symptoms were resolved and he seemed back to normal (according to his like a switch flipped). He did have a very mild bitemporal headache sometime in the ER after the CT scan which lasted perhaps an hour or so. CT scan of the head was unremarkable. CT angiography of the head neck were unremarkable with no significant vessel stenoses or anomalies. CBC was unremarkable. Chem profile showed a sodium of 133 and potassium 3.4. Glucose was 102 and liver was normal. Lyme antibody titer was negative. MRI of the brain showed no acute stroke. There was mild old small vessel ischemic changes scattered throughout the white matter bilaterally diffusely. I reviewed these films. Today, CBC was normal and sodium was 135 with a potassium at 3.2. Blood pressure today is 131/90. He is asymptomatic with no headache. Allergies Allergy/AdvReac Type Severity Reaction Status Date / Time No Known Allergies Allergy Verified 05/16/19 21:58 Home Medications Home Medications Medication Instructions Recorded Confirmed Type albuterol sulfate [ProAir HFA] 2 puff INHALATION Q4H PRN 05/16/19 05/16/19 History allopurinol 100 mg PO BID 05/16/19 05/16/19 History aspirin 81 mg PO HS 05/16/19 05/16/19 History cetirizine [Zyrtec] 10 mg PO QAM 05/16/19 05/16/19 History fluticasone propionate [Flonase 1 spray INTRANASAL BID 05/16/19 05/16/19 History Allergy Relief] montelukast 10 mg PO HS 05/16/19 05/16/19 History naproxen 500 mg PO BID PRN 05/16/19 05/16/19 History nebivolol [Bystolic] 5 mg PO HS 05/16/19 05/16/19 History omeprazole 20 mg PO QAM 05/16/19 05/16/19 History rosuvastatin 20 mg PO HS 05/16/19 05/16/19 History valsartan-hydrochlorothiazide 1 tab PO QAM 05/16/19 05/16/19 History verapamil 120 mg PO BID 05/16/19 05/16/19 History Patient History Surgical History [place] teeth removed Family History Father Myocardial infarction Heart disease Mother Parkinson disease Social History Preferred Language: Irish Communication Ability: Effective Steel Sampler Required: No Beliefs That Will Affect Care: None Current Living Situation: Spouse current occupational status: employed current occupation: [employer] the [employer] at [employer] Other Information That Helps Us Care for You: No Feels Safe at Home: Yes Safety Concerns: Feels Safe At This Time Smoking Status: Never smoker Do You Dip or Chew Tobacco: No Second Hand Exposure: No Tobacco Cessation Education Requested by Patient: No Hx Alcohol Use: Yes Alcohol type: beer Alcohol Intake Frequency Comment: One or 2 beers per week at most. Hx Substance Use: No Review of Systems Constitutional: no fever, no fatigue and no weakness Eyes: no diplopia, no eye pain and no worsening vision Ear, Nose, Mouth, Throat: no ear pain, no tinnitus, no hearing loss, no dizziness, no snoring, no hoarseness and no dysphagia Respiratory: no cough and no dyspnea Cardiovascular: no chest pain, no palpitations and no lightheadedness Gastrointestinal: no abdominal pain, no nausea and no vomiting Genitourinary: no dysuria, no urinary frequency and no urinary incontinence Musculoskeletal: no back pain, no neck pain, no radicular pain, no joint pain and no myalgia Integumentary: no rash and no lesions Neurologic: no gait abnormality, no localized weakness, no generalized weakness, no tingling, no numbness, no tremor(s), no abnormal movements, no headache(s), no abnormal speech, no confusion and no memory loss Psychiatric: no depression, no irritability, no anxiety, no difficulty concentrating, no confusion and no hallucinations Endocrine: no fatigue and no flushing Hematologic / Lymphatic: no easy bleeding and no easy bruising Allergy / Immunological: no urticaria and no problem reported Physical Exam Physical Exam: The patient is right-handed. The patient is awake, alert, and attentive. Speech is normal without any aphasia or dysarthria. Mentation and thought processes are intact, with full orientation and normal fund of knowledge. Attention and concentration are normal. Mood and affect are normal and appropriate. General appearance and grooming are normal. Short and long-term memory are intact. The discs are sharp with positive venous pulsations bilaterally. There are no exudates, hemorrhages, or blood vessel changes seen. Pupils are 4 mm bilaterally and reactive to light. Extraocular eye muscles are intact without nystagmus. Visual acuity and visual almanzar seem normal grossly to confrontation. There are no deficits to sensation in the face in all 3 distributions of the fifth cranial nerve bilaterally. Corneal reflexes are positive bilaterally. Facial strength and symmetry was normal bilaterally. Hearing seems intact grossly to voice and finger rub bilaterally. Palate moves well without asymmetry. There is normal sternocleidomastoid and trapezius (shoulder shrug) strength bilaterally. Tongue is midline with good strength bilaterally. Neck has a full range of motion without discomfort. There are no cervical bruits bilaterally. There are no cranial or ocular bruits. Heart is without murmur. There is a regular rhythm and rate. Cervical, thoracic, and lumbar spine are nontender to palpation. Gait is narrow based, with good arm swing, turns, and stance. Balance is normal eyes open. With outstretched arms there is no drift. There are no resting, postural, or action tremors. There is no ataxia with finger to nose testing. There is good facility in the hands. No other abnormal involuntary movements are noted. Motor strength is 5/5 diffusely in the arms bilaterally including deltoids, biceps, triceps, brachioradialis, wrist flexors and extensors, water and sewer systems supervisor, and intrinsic hand muscles. Motor strength is 5/5 diffusely in the legs bilaterally including hip flexors, quadriceps, hamstrings, gastrocnemius, tibialis anterior, tibialis posterior, and Peroneii muscles bilaterally. Toe extensors are normal and there is good bulk in the extensor digitorum brevis muscles bilaterally. The limbs have good tone without rigidity or spasticity. There is no atrophy noted in the muscles. Muscle bulk is normal, there is no tenderness to palpation, no myotonia to percussion, and no fasciculations seen. Sensory examination is intact to touch and pin throughout all 4 limbs diffusely. Reflexes are 1/4 in the biceps, triceps, brachioradialis, quadriceps, and Achilles tendons bilaterally. Toes are downgoing with plantar stimulation bilaterally. Peripheral pulses are present and of normal quality distally in all 4 limbs. There is no peripheral edema noted in the limbs. Results & Data Vital Signs (Past 12 Hours) Vital Signs Temp Pulse Pulse Resp BP BP Pulse Ox 05/17/19 07:03 36.5 C 67 18 131/90 95 05/17/19 04:00 36.4 C L 78 19 119/77 97 05/17/19 00:53 63 05/17/19 00:45 36.6 C 60 20 149/96 H 97 05/17/19 00:13 62 18 131/101 H 98 05/16/19 23:16 63 18 120/86 98 05/16/19 22:31 64 18 135/104 H 97 05/16/19 20:18 36.3 C L 60 18 145/93 H 99 Diagnostic Findings MRI OF THE BRAIN WITHOUT IV CONTRAST CLINICAL HISTORY: Left facial numbness. Stroke like symptoms. COMPARISON STUDY: CT of the brain dated 05/16/2019. TECHNIQUE: MRI of the brain was performed utilizing various T1 and T2-weighted sequences in the axial, sagittal, and coronal planes. IV contrast was not administered for this examination. FINDINGS: Brain parenchyma: There is mild subcortical and periventricular microangiopathic disease. There is no hemorrhage or mass effect. There is no restricted diffusion to suggest acute ischemia. Abrams-white matter differentiation is preserved. No extra-axial fluid collection is seen. The cerebellar tonsils are normal in configuration. Ventricles, sulci, and cisterns: Normal in configuration. Pituitary and sella: Unremarkable. Intracranial vasculature: Normal flow voids are maintained at the skull base. Orbits: The bony orbits are grossly intact. Orbital contents are normal in appearance. Sinuses and mastoids: Clear. Calvarium: Unremarkable. Cervical cord: Partially visualized cervical spinal cord is normal in morphology and signal intensity. IMPRESSION: There is no acute intracranial abnormality. Electronically signed by: Bhaskar Baum M.D. 05/17/2019 6:44 AM
[2019-05-17] MEDS ORDERED: PANTOprazole 40 MG TAB PO SCH (09:00)
[2019-05-17] MEDS ORDERED: CETIRIZINE HCL 10 MG TABLET PO SCH (09:00)
[2019-05-17] MEDS ORDERED: ASPIRIN 81 MG ECTAB PO SCH ×2 (09:00→21:00)
[2019-05-17] MEDS ORDERED: HEPARIN SOD 5,000 UNIT/0.5 ML VIAL SQ SCH (09:00)
[2019-05-17] MEDS ORDERED: CLOPIDOGREL BISULFATE 75 MG TAB PO ONE (11:44)
[2019-05-17] MEDS ORDERED: STROKE PATIENT DISCHARGE STA (12:12)
--- NOTE | 2019-05-17 14:57 | Pharmacy Report ---
Pharmacist Stroke Counseling - Date of Service May 17, 2019 - Scope: Pharmacy has been consulted to provide medication discharge counseling for this patient admitted with transient ischemic attack as per the Pharmacist Discharge Counseling for Stroke Patients Protocol. - Medications on Discharge: Home Medications Medication Instructions Recorded Confirmed albuterol sulfate [ProAir HFA] 2 puff INHALATION Q4H PRN 05/16/19 05/16/19 allopurinol 100 mg PO BID 05/16/19 05/16/19 aspirin 81 mg PO HS 05/16/19 05/16/19 cetirizine [Zyrtec] 10 mg PO QAM 05/16/19 05/16/19 fluticasone propionate [Flonase 1 spray INTRANASAL BID 05/16/19 05/16/19 Allergy Relief] montelukast 10 mg PO HS 05/16/19 05/16/19 naproxen 500 mg PO BID PRN 05/16/19 05/16/19 nebivolol [Bystolic] 5 mg PO HS 05/16/19 05/16/19 omeprazole 20 mg PO QAM 05/16/19 05/16/19 rosuvastatin 20 mg PO HS 05/16/19 05/16/19 valsartan-hydrochlorothiazide 1 tab PO QAM 05/16/19 05/16/19 verapamil 120 mg PO BID 05/16/19 05/16/19 New Rx's Medication Instructions Recorded clopidogrel [Plavix] 75 mg PO DAILY #30 tab 05/17/19 pantoprazole 20 mg PO DAILY #30 tab 05/17/19 - Action: The above medications, specifically ones for stroke treatment/prophylaxis, have been reviewed in detail with the patient and/or patient claims representative(s) prior to discharge. This includes indication, common adverse reactions, drug interactions, and medication administration. Medication counseling has been employed using the teach-back method to ensure understanding. - Outcome: The patient and/or patient claims representative(s) have demonstrated understanding of the medications. Please note, they are aware that the pharmacist will call them within 72 hours post-discharge to confirm that the appropriate medications are being taken and answer any further medication related questions the patient might have at that time. Contact information Individual to be contacted: Self Relationship to patient (if applicable): Phone number: [phone] Best time to call: anytime Additional comments: Thank you for allowing pharmacy to be involved in the care of this patient. Please call [phone] or [phone] with any additional questions
--- NOTE | 2019-05-17 15:01 | Ultrasound Report ---
BILATERAL LOWER EXTREMITY VENOUS DOPPLER HISTORY: Patent foramen ovale. Transient ischemic attack. Assess for DVT. COMPARISON STUDY: None. FINDINGS: There is normal compressibility, flow, and augmentation within the bilateral lower extremit y deep venous systems. IMPRESSION: No DVT within the right or left lower extremity. Electronically signed by: Mukul Baltazar M.D. 05/17/2019 2:59 PM
--- NOTE | 2019-05-17 18:45 | Discharge Summary ---
Date of Service May 17, 2019 Principal Diagnosis TIA Discharge Exam Constitutional WD/WN, vitals as above Eyes EOM intact bilaterally; no conjunctival abnormality ENMT external ear and nose normal, oropharynx normal Neck trachea midline, no thyromegaly normal visual inspection Respiratory normal respiratory effort, lungs clear to auscultation no respiratory distress Cardiovascular RRR, no murmur, no edema Gastrointestinal (Abdomen) Inspection/Auscultation: abdomen normal to inspection; abdomen not distended Musculoskeletal no cyanosis or clubbing, extremities motor strength 5/5 Skin no rashes, warm and dry Neurologic moves all extremities and awake Psychiatric Orientation: alert, oriented to person and cooperative Discharge Data Allergies Allergy/AdvReac Type Severity Reaction Status Date / Time No Known Allergies Allergy Verified 05/16/19 21:58 Consultations 05/16/19 22:03 ED Decision to Admit Stat 05/17/19 00:41 Consult Case Management - Discharge Planning Routine Consult Neurology Routine 05/17/19 03:49 Consult Case Management - Discharge Planning Routine 05/17/19 12:06 Consult [facility] prospecting driller helper Routine Ordered Studies 05/16/19 20:41 CT angio head w con Stat CT angio neck with con Stat CT head/brain wo con Stat 05/17/19 00:41 MR brain wo con Urgent 05/17/19 14:23 US venous doppler [facility] Urgent Hospital Course (1) TIA (transient ischemic attack): TIA/numbness and tingling of left side of face/aphasia- MRI brain showed no stroke. Echo showed patient PFO, but neurology felt this was non-contributory. His RoPE score is 5, giving him a 35% chance of having his TIA being related to a PFO. He will follow up with a [place] napping machine operator regarding this as outpatient. Switched ASA to Plavix to reduce risk of further stroke (2) Numbness and tingling of left side of face: See above (3) Aphasia: See above (4) CAD (coronary artery disease), [place] coronary artery: Reports having had a cardiac catheterization done a few years ago while in [place], and was told that he had a 40% blockage. - Switched to Plavix from aspirin - Continued other home meds (5) Hypertension: See above (6) Atrioventricular block, first degree: See above (7) Hyperlipidemia: Lipid panel was quite good. Neurology felt that with cholesterol of 130, LDL of 40, and HDL of 60, he did not need to increase his statin. - Continue rosuvastatin 20 mg at bedtime. (8) Asthma: Albuterol HFA 2 puffs every 4 hours as needed (9) Gout: Continue allopurinol 100 mg p.o. twice daily (10) Allergic rhinitis: Continue Zyrtec 10 mg every morning, montelukast 10 mg daily and Flonase 1 spray each nostril twice daily. (11) GERD (gastroesophageal reflux disease): Continue omeprazole 20 mg p.o. daily, may change to pantoprazole 40 mg daily Total Time Total Time Spent Total Time Spent (In Minutes): 35 Total Time Includes: Discharge Planning and Medication Reconciliation Discharge Plan Discharge Items Patient Disposition: Home - Self-Care Reason For Visit: LEFT FACIAL NUMBNESS Discharge Diagnosis: TIA Discharge Goals: Decrease discomfort Activity: Resume your previous activity Non-emergency contact: Primary Care Provider and Neurologist Call non-emergency contact if: your symptoms worsen Follow-up/Referrals: Dorian Cm III, MD [Physician] - (Please see Dr. Cm in 4-6 weeks for follow up.) Guero Gonzalez DO [Primary Care Provider] - Diet: Heart Healthy Addtl Provider Instructions: Mr. Park, You were admitted to the hospital for symptoms that were concerning for a TIA. Luckily, all these symptoms resolved on their own without our intervention. We did an MRI of your brain which did not show any stroke (though this does not rule out the TIA). An echocardiogram of your heart showed a pathway between your atria (called a patent foramen ovale or PFO). You do not need to be in the hospital for this, and Dr. Cm did not think that it even contributed to your symptoms; however, it would be prudent to see a [place] napping machine operator to discuss whether this needs to be closed or not. We are switching you from aspirin to a medication called Plavix (clopidogrel) which is a strong anti-platelet agent. Please take this 1 time per day at approximately the same time each day. Continue your acid reflux medication to help keep your stomach from getting upset. We are switching you from omeprazole to pantoprazole to avoid an interaction with the Plavix. Please return to the hospital if you have any more stroke-like symptoms. Prescriptions: New clopidogrel [Plavix] 75 mg tablet 75 mg PO DAILY Qty: 30 RF: 1 pantoprazole 20 mg tablet,delayed release (DR/EC) 20 mg PO DAILY Qty: 30 RF: 0 Continued cetirizine [Zyrtec] 10 mg Tablet 10 mg PO QAM RF: 0 allopurinol 100 mg Tablet 100 mg PO BID RF: 0 verapamil 120 mg Tablet 120 mg PO BID RF: 0 montelukast 10 mg Tablet 10 mg PO HS RF: 0 albuterol sulfate [ProAir HFA] 90 mcg/actuation Hfa Aerosol Inhaler 2 puff INHALATION Q4H PRN (Reason: Shortness Of Breath Or Wheezing) RF: 0 fluticasone propionate [Flonase Allergy Relief] 50 mcg/actuation [place],Suspension 1 spray INTRANASAL BID RF: 0 naproxen 500 mg Tablet 500 mg PO BID PRN (Reason: Pain) RF: 0 rosuvastatin 20 mg Tablet 20 mg PO HS RF: 0 valsartan-hydrochlorothiazide 320-25 mg Tablet 1 tab PO QAM RF: 0 Bystolic 5 mg Tablet 5 mg PO HS RF: 0 Discontinued aspirin 81 mg Tablet,Delayed Release (Dr/Ec) 81 mg PO HS RF: 0 omeprazole 20 mg Capsule,Delayed Release(Dr/Ec) 20 mg PO QAM RF: 0 Stand-Alone Forms: Medications to Prevent Stroke, [facility] Discharge Orders: Discharge Order (Routine); Ordered 05/17/19 Ordered By: Munir Gonzalez Admission Data Admit Date/Time: 05/16/19 23:27 Attending Provider: Munir Gonzalez Admit Provider: Ramon Stephens Primary Care Provider: Guero Gonzalez Other Providers: Shad Bhatti ; Munir Gonzalez Service: Telemetry Other Interventions: Discharge Summary Assessment (RN) Last Done: 05/17/19 16:08 DC Date/Time DO NOT enter until pt leaves facility: 05/17/19 17:20
[2019-05-17] MEDS ORDERED: ROSUVASTATIN CALCIUM 20 MG TAB PO SCH (21:00)
[2019-05-17] MEDS ORDERED: MONTELUKAST SODIUM 10 MG TABLET PO SCH (21:00)
[2019-05-17] MEDS ORDERED: NEBIVOLOL HCL 5 MG TAB PO SCH (21:00)
[2019-05-19 06:11] LABS: Estimated Average Glucose 120 mg/dl; Hemoglobin A1C 5.8 % (4.5-5.6)
--- NOTE | 2019-05-20 11:19 | Pharmacy Report ---
Pharmacist Post D/C Phone Note - Phone Note: Date of phone call: May 20, 2019. Individual with whom pharmacist spoke to: KORINA Aniya GR The following questions were reviewed during the phone call with responses listed below each: Can you tell me the medications that you are currently taking as well as when and how you take each medication? -See Table Below When have you missed any doses of your medications? - n/a What side effects are you having from your medications, specifically, the new medications you were started on? - none -- Protonix seems to be working as well as Prilosec had been for him. What questions do you have about your medications? - none What problems are you having obtaining your medications? - none When is your next appointment with your primary care doctor? - (05/22/19) Additional comments: - Patient states that everything is going well w/ medications since discharge. As per the Pharmacist Discharge Counseling for Stroke Patients Protocol, this phone call has been completed within 72 hours of discharge. Thank you for allowing us to be involved in the care of this patient. - Home Medications: Home Medications Medication Instructions Recorded Confirmed Bystolic 5 mg PO HS 05/16/19 05/16/19 albuterol sulfate [ProAir HFA] 2 puff INHALATION Q4H PRN 05/16/19 05/16/19 allopurinol 100 mg PO BID 05/16/19 05/16/19 cetirizine [Zyrtec] 10 mg PO QAM 05/16/19 05/16/19 fluticasone propionate [Flonase 1 spray INTRANASAL BID 05/16/19 05/16/19 Allergy Relief] montelukast 10 mg PO HS 05/16/19 05/16/19 naproxen 500 mg PO BID PRN 05/16/19 05/16/19 rosuvastatin 20 mg PO HS 05/16/19 05/16/19 valsartan-hydrochlorothiazide 1 tab PO QAM 05/16/19 05/16/19 verapamil 120 mg PO BID 05/16/19 05/16/19 New Rx's Medication Instructions Recorded clopidogrel [Plavix] 75 mg PO DAILY #30 tab 05/17/19 pantoprazole 20 mg PO DAILY #30 tab 05/17/19
[2019-05-21 15:48] LABS: Anti Cardiolipin Ab IgG <14 GPL (< = 14); Anti Cardiolipin Ab IgM <12 MPL (< = 12); Anti-Cardiolipin Ab IgA <11 APL (< = 11); B2 Glycoprotein IgA <9 SAU (<=20); B2 Glycoprotein IgG <9 SGU (<=20); B2 Glycoprotein IgM <9 SMU (<=20); Ehrlichia chaff IgG Ab <1:64 (<1:64); Ehrlichia chaff IgM Ab <1:20 (<1:20); Lupus Anticoagulant Negative (Negative)
== END 2019-05-17 17:20 | disposition home or self-care (01) | DRG 69 ==
LOC: ED 20:09 → 2S 23:27 → SUATTDRO 23:27 → 2S 05-17 00:14

== ENCOUNTER 2019-06-02 08:05 | Observation (INO) ==
--- NOTE | 2019-06-02 08:25 | Emergency Department Note ---
History of Present Illness General Chief complaint: Allergic Reaction Stated complaint: ALLERGIC RXN Time Seen by Provider: 06/02/19 08:21 History of Present Illness Maximum Pain Intensity: 0 This is a 59-year-old male that presents to the emergency department via private vehicle with complaints of "allergic reaction". The patient states that about 14 days ago he began a new regimen of medication for TIA. He began Plavix and had his omeprazole transition pantoprazole. He states that then this past Sunday, about 10 days into the medication regimen he began with hives. It is diffuse and bilateral involving the axilla, the groin region predominantly in the back. He notes over the past day or so it has moved to his face and now around the mouth. No trouble breathing. No pain. No fevers or chills. He denies any recent infections. No recent infectious symptoms. Home Medications Home Medications Medication Instructions Recorded Confirmed Type albuterol sulfate HFA 90 2 puff INHALATION Q4H PRN 05/22/19 06/02/19 History mcg/actuation aerosol inhaler allopurinol 100 mg tablet 100 mg PO BID #180 tab 05/22/19 06/02/19 Rx cetirizine 10 mg tablet 10 mg PO QAM 05/22/19 06/02/19 History clopidogrel 75 mg tablet 75 mg PO DAILY #90 tab 05/22/19 06/02/19 Rx fluticasone propionate 50 1 spray INTRANASAL BID 05/22/19 06/02/19 History mcg/actuation nasal spray,suspension montelukast 10 mg tablet 10 mg PO HS #90 tab 05/22/19 06/02/19 Rx naproxen 500 mg tablet 500 mg PO BID PRN 05/22/19 06/02/19 History omega-3 fatty acids 1,000 mg 1,000 mg PO DAILY 05/22/19 06/02/19 History capsule pantoprazole 20 mg tablet,delayed 20 mg PO DAILY #90 tab 05/22/19 06/02/19 Rx release rosuvastatin 20 mg tablet 20 mg PO HS #90 tab 05/22/19 06/02/19 Rx valsartan 320 1 tab PO QAM #90 tab 05/22/19 06/02/19 Rx mg-hydrochlorothiazide 25 mg tablet varicella-zoster glycoE [id number] 0.5 ml IM .COMPLEX #1 ea 05/22/19 06/02/19 Rx adj(PF) 50 mcg/0.5 mL IM susp, kit verapamil 120 mg tablet 120 mg PO BID #180 tab 05/22/19 06/02/19 Rx metoprolol succinate 25 mg PO HS 06/02/19 06/02/19 History nebivolol [Bystolic] 5 mg PO HS 06/02/19 06/02/19 History Allergies Allergy/AdvReac Type Severity Reaction Status Date / Time No Known Allergies Allergy Verified 06/02/19 08:24 Past Med/Surg History Medical History Asthma (Chronic) CAD (coronary artery disease), [place] coronary artery (Chronic) GERD (gastroesophageal reflux disease) (Chronic) Hyperlipidemia (Chronic) Hypertension (Chronic) Allergic rhinitis Surgical History H/O right heart catheterization [place] teeth removed Family History Father Myocardial infarction Heart disease Mother Parkinson disease Social History Preferred Language: Dutch Communication Ability: Effective Visual Impairment: No Limitations Hearing Ability: Normal 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 Hx Substance Use: No Childhood Exposure to Second-Hand Smoke: No Dental Care, Regularly: Yes Physical Activity Frequency: 1-2 Times per Week Seatbelt Use: always Review of Systems A total of 10 systems reviewed and were otherwise negative Physical Exam Vital Signs Vital Signs - 24 hr 06/02/19 08:07 06/02/19 08:30 06/02/19 08:50 Temperature 37.2 C Temperature Source Oral Sepsis Recent Fever Within 48 Hours No Sepsis Action Taken by Nursing No Action Required Pulse Rate 68 55 L Pulse Rate [Apical] 53 L Pulse Rate from SpO2 Sensor 56 L Pulse Rhythm Pulse Rhythm [Apical] Regular Pulse Strength [Apical] Normal Respiratory Rate 20 15 Respiratory Effort / Characteristics Non-Labored Non-Labored Spontaneous Non-Labored Spontaneous Respiratory Depth Normal Normal Normal Respiratory Pattern Regular Regular Blood Pressure 105/71 72/42 L Blood Pressure [Right Arm] 72/42 L Blood Pressure Mean 82 52 Blood Pressure Mean [Right Arm] 52 Blood Pressure Position [Right Arm] Lying Pulse Oximetry 96 96 96 Oxygen Delivery Method Room Air Room Air Nasal Cannula Oxygen Flow Rate 2 06/02/19 08:56 06/02/19 09:00 06/02/19 09:07 Temperature Temperature Source Sepsis Recent Fever Within 48 Hours Sepsis Action Taken by Nursing Pulse Rate 54 L 55 L 52 L Pulse Rate [Apical] Pulse Rate from SpO2 Sensor 54 L 55 L 52 L Pulse Rhythm Pulse Rhythm [Apical] Pulse Strength [Apical] Respiratory Rate 13 17 17 Respiratory Effort / Characteristics Respiratory Depth Respiratory Pattern Blood Pressure 83/55 L 83/52 L Blood Pressure [Right Arm] Blood Pressure Mean 64 62 Blood Pressure Mean [Right Arm] Blood Pressure Position [Right Arm] Pulse Oximetry 95 95 97 Oxygen Delivery Method Oxygen Flow Rate 06/02/19 09:15 06/02/19 09:16 06/02/19 09:24 Temperature Temperature Source Sepsis Recent Fever Within 48 Hours Sepsis Action Taken by Nursing Pulse Rate 53 L 53 L 50 L Pulse Rate [Apical] Pulse Rate from SpO2 Sensor 53 L 53 L 54 L Pulse Rhythm Pulse Rhythm [Apical] Pulse Strength [Apical] Respiratory Rate 18 19 21 Respiratory Effort / Characteristics Respiratory Depth Respiratory Pattern Blood Pressure 80/49 L 84/53 L 78/47 L Blood Pressure [Right Arm] Blood Pressure Mean 59 63 57 Blood Pressure Mean [Right Arm] Blood Pressure Position [Right Arm] Pulse Oximetry 97 96 98 Oxygen Delivery Method Oxygen Flow Rate 06/02/19 09:25 06/02/19 09:30 06/02/19 09:45 Temperature Temperature Source Sepsis Recent Fever Within 48 Hours Sepsis Action Taken by Nursing Pulse Rate 51 L 50 L 50 L Pulse Rate [Apical] 51 L Pulse Rate from SpO2 Sensor 51 L 50 L 50 L Pulse Rhythm Regular Pulse Rhythm [Apical] Regular Pulse Strength [Apical] Normal Respiratory Rate 23 22 19 Respiratory Effort / Characteristics Non-Labored Spontaneous Respiratory Depth Normal Respiratory Pattern Regular Blood Pressure 87/60 L 87/58 L 87/64 L Blood Pressure [Right Arm] 87/60 L Blood Pressure Mean 69 67 71 Blood Pressure Mean [Right Arm] 69 Blood Pressure Position [Right Arm] Lying Pulse Oximetry 98 98 98 Oxygen Delivery Method Nasal Cannula Oxygen Flow Rate 2 06/02/19 10:00 06/02/19 10:15 06/02/19 10:30 Temperature Temperature Source Sepsis Recent Fever Within 48 Hours Sepsis Action Taken by Nursing Pulse Rate 53 L 54 L 53 L Pulse Rate [Apical] Pulse Rate from SpO2 Sensor 54 L 54 L 54 L Pulse Rhythm Pulse Rhythm [Apical] Pulse Strength [Apical] Respiratory Rate 24 22 24 Respiratory Effort / Characteristics Respiratory Depth Respiratory Pattern Blood Pressure 89/64 L 98/65 L 92/67 L Blood Pressure [Right Arm] Blood Pressure Mean 72 76 75 Blood Pressure Mean [Right Arm] Blood Pressure Position [Right Arm] Pulse Oximetry 98 97 97 Oxygen Delivery Method Oxygen Flow Rate 06/02/19 10:45 06/02/19 11:00 06/02/19 11:15 Temperature Temperature Source Sepsis Recent Fever Within 48 Hours Sepsis Action Taken by Nursing Pulse Rate 64 56 L 57 L Pulse Rate [Apical] Pulse Rate from SpO2 Sensor 59 L 56 L 58 L Pulse Rhythm Pulse Rhythm [Apical] Pulse Strength [Apical] Respiratory Rate 17 21 20 Respiratory Effort / Characteristics Respiratory Depth Respiratory Pattern Blood Pressure 93/64 L 94/66 L 106/68 Blood Pressure [Right Arm] Blood Pressure Mean 73 75 80 Blood Pressure Mean [Right Arm] Blood Pressure Position [Right Arm] Pulse Oximetry 97 97 97 Oxygen Delivery Method Oxygen Flow Rate 06/02/19 11:30 06/02/19 11:35 06/02/19 11:36 Temperature Temperature Source Sepsis Recent Fever Within 48 Hours Sepsis Action Taken by Nursing Pulse Rate 57 L 56 L 56 L Pulse Rate [Apical] 55 L Pulse Rate from SpO2 Sensor 57 L 55 L 56 L Pulse Rhythm Pulse Rhythm [Apical] Regular Pulse Strength [Apical] Normal Respiratory Rate 16 16 17 Respiratory Effort / Characteristics Non-Labored Spontaneous Respiratory Depth Normal Respiratory Pattern Regular Blood Pressure 100/63 92/54 L Blood Pressure [Right Arm] 92/54 L Blood Pressure Mean 75 66 Blood Pressure Mean [Right Arm] 66 Blood Pressure Position [Right Arm] Lying Pulse Oximetry 97 96 96 Oxygen Delivery Method Nasal Cannula Oxygen Flow Rate 2 06/02/19 11:45 06/02/19 12:00 06/02/19 12:14 Temperature Temperature Source Sepsis Recent Fever Within 48 Hours Sepsis Action Taken by Nursing Pulse Rate 57 L 62 70 Pulse Rate [Apical] Pulse Rate from SpO2 Sensor 57 L 63 71 Pulse Rhythm Pulse Rhythm [Apical] Pulse Strength [Apical] Respiratory Rate 18 20 24 Respiratory Effort / Characteristics Respiratory Depth Respiratory Pattern Blood Pressure 84/54 L 100/54 L Blood Pressure [Right Arm] Blood Pressure Mean 64 69 Blood Pressure Mean [Right Arm] Blood Pressure Position [Right Arm] Pulse Oximetry 97 97 98 Oxygen Delivery Method Oxygen Flow Rate 06/02/19 12:16 06/02/19 12:30 06/02/19 12:45 Temperature Temperature Source Sepsis Recent Fever Within 48 Hours Sepsis Action Taken by Nursing Pulse Rate 71 68 69 Pulse Rate [Apical] Pulse Rate from SpO2 Sensor 72 69 69 Pulse Rhythm Pulse Rhythm [Apical] Pulse Strength [Apical] Respiratory Rate 15 19 19 Respiratory Effort / Characteristics Respiratory Depth Respiratory Pattern Blood Pressure 87/53 L Blood Pressure [Right Arm] Blood Pressure Mean 64 Blood Pressure Mean [Right Arm] Blood Pressure Position [Right Arm] Pulse Oximetry 97 96 96 Oxygen Delivery Method Oxygen Flow Rate 06/02/19 13:00 06/02/19 13:01 Temperature Temperature Source Sepsis Recent Fever Within 48 Hours Sepsis Action Taken by Nursing Pulse Rate 77 78 Pulse Rate [Apical] Pulse Rate from SpO2 Sensor 79 77 Pulse Rhythm Pulse Rhythm [Apical] Pulse Strength [Apical] Respiratory Rate 26 H 20 Respiratory Effort / Characteristics Respiratory Depth Respiratory Pattern Blood Pressure 87/64 L Blood Pressure [Right Arm] Blood Pressure Mean 71 Blood Pressure Mean [Right Arm] Blood Pressure Position [Right Arm] Pulse Oximetry 96 96 Oxygen Delivery Method Oxygen Flow Rate VITAL SIGNS - Vital signs and nursing notes were reviewed. Stable and afebrile GENERAL -59-year-old male is appearing stated age who is in no acute distress. Communicates well with provider and answers questions appropriately. SKIN -homogeneous erythematous rash noted around the patient's mouth, on the superior portion of the eyelids bilaterally, his inferior low back as well as groin region. The axilla and AC joints on the ventral aspect are also involved. He is pale overall. There is diffuse, slightly raised HEAD - NC/AT. EYES - PERRL with EOMI bilaterally. Sclera anicteric. EARS - No deformities of external structures noted on gross examination bilaterally.Tympanic membranes pearly headley without retraction or bulging. No fluid or purulent material visualized behind the TM. Handle of malleus, umbo, cone of light, pars tensa/flaccid all easily visualized. NOSE - Midline and without cyanosis. No epistaxis or purulent drainage noted. Septum midline without deviation or septal hematoma noted. MOUTH/OROPHARYNX - Without perioral cyanosis. Buccal mucosa pink and moist and without leukoplakia. Tongue midline with equal elevation of palate bilaterally. No tonsillar hypertrophy, erythema, or exudates noted. Good dentition noted. NECK - Neck with FROM. Supple to palpation. No lymphadenopathy noted. No nuchal rigidity. LUNGS - Chest wall symmetric without accessory muscle use, intercostals retractions, or central cyanosis. Normal vesicular breath sounds CTA B/L. No wheezes, rales, or rhonchi appreciated. CARDIAC - RRR with S1/S2. No murmur, rubs, or gallops appreciated. ABDOMEN - Abdominal contour normal without pulsations or visible masses. BS normoactive all four quadrants. No tenderness, palpable masses, hepatosple nomegaly, or ascites noted. EXTREMITIES - No clubbing or peripheral cyanosis. No pretibial edema present. +5/5 strength noted in UE/LE bilaterally. NEUROLOGIC - Cranial nerves II through XII grossly intact. Sensory intact to light touch throughout. PSYCH - A&Ox3 and cooperates fully with examiner. Pt is very pleasant and interacts well with examiner. Course Administered Medications Diphenhydramine HCl (Benadryl) 25 mg IV Q6H PRN PRN Reason: ITCH/HIVES Stop: 07/02/19 14:49 Last Admin: 06/02/19 16:01 Dose: 25 mg Documented by: [id number] Sodium Chloride (Nss 1000ml) 1,000 mls @ 125 mls/hr IV .Q8H LATESHA Stop: 07/02/19 14:49 Last Admin: 06/02/19 15:33 Dose: 125 mls/hr Documented by: [id number] Methylprednisolone 40 mg/ (Syringe) 0.64 mls @ 1.5 mls/min IV Q8H LATESHA Stop: 07/02/19 15:59 Last Admin: 06/02/19 16:18 Dose: 1.5 mls/min Documented by: [id number] Discontinued Medications Dexamethasone Sodium Phosphate (Decadron Pf) Confirm Administered Dose 10 mg .ROUTE .STK-MED ONE Stop: 06/02/19 09:07 Last Admin: 06/02/19 09:12 Dose: 10 mg Documented by: [id number] Diphenhydramine HCl (Benadryl) 50 mg IV NOW STA Stop: 06/02/19 08:48 Last Admin: 06/02/19 09:08 Dose: 50 mg Documented by: [id number] Epinephrine HCl (Epinephrine) 0.3 mg IM NOW STA Stop: 06/02/19 11:36 Last Admin: 06/02/19 11:42 Dose: 0.3 mg Documented by: [id number] Epinephrine HCl (Epipen) 0.3 mg IM NOW STA Stop: 06/02/19 12:38 Last Admin: 06/02/19 12:53 Dose: 0.3 mg Documented by: [id number] Famotidine (Pepcid 20mg Iv Push) 20 mg in 5 mls @ 2.5 mls/min IV NOW STA Stop: 06/02/19 08:48 Last Admin: 06/02/19 09:10 Dose: 2.5 mls/min Documented by: [id number] Dexamethasone Sodium Phosphate (10 mg/ Syringe) 2.5 mls @ 1 mls/min IV NOW STA Stop: 06/02/19 08:49 Last Admin: 06/02/19 09:12 Dose: Not Given Documented by: [id number] Sodium Chloride (Nss 1000ml) 1,000 mls @ 999 mls/hr IV .Q1H1M LATESHA Stop: 06/02/19 10:30 Last Infusion: 06/02/19 10:16 Dose: 0 mls/hr Documented by: [id number] Admin: 06/02/19 09:15 Dose: 999 mls/hr Documented by: [id number] Sodium Chloride (Nss 1000ml) 1,000 mls @ 999 mls/hr IV .Q1H1M LATESHA Stop: 06/02/19 12:15 Last Infusion: 06/02/19 12:36 Dose: 0 mls/hr Documented by: [id number] Admin: 06/02/19 11:35 Dose: 999 mls/hr Documented by: [id number] Medical Decision Making Laboratory Data Result diagrams: 06/02/19 08:35 06/02/19 08:35 Lab Results 06/02/19 06/02/19 06/02/19 Range/Units 08:35 08:35 08:35 WBC 7.40 (4.8-10.8) K/uL RBC 4.59 L (4.7-6.1) M/uL Hgb 14.7 (14.0-18.0) g/dL Hct 39.9 L (42-52) % MCV 86.9 (80-100) fL MCH 32.0 (25-34) pg MCHC 36.8 H (32-36) g/dL RDW Std Deviation 40.9 (36.4-46.3) fL RDW Coeff of Nafisa 12.8 (11.5-14.5) % Plt Count 197 (130-400) K/uL MPV 9.5 (7.4-10.4) fL Immature Gran % (Auto) 0.3 % Neut % (Auto) 83.9 % Lymph % (Auto) 10.5 % Trigg % (Auto) 4.7 % Eos % (Auto) 0.5 % Baso % (Auto) 0.1 % Immature Gran # (Auto) 0.02 (0.00-0.02) K/uL Neut # (Auto) 6.20 (1.4-6.5) K/uL Lymph # (Auto) 0.78 L (1.2-3.4) K/uL Trigg # (Auto) 0.35 (0.11-0.59) K/uL Eos # (Auto) 0.04 (0-0.5) K/uL Baso # (Auto) 0.01 (0-0.2) K/uL PT 12.8 H (9.0-12.0) Seconds INR 1.3 H (0.9-1.1) APTT 27.6 (21.0-31.0) Seconds PTT Ratio 1.0 Sodium 127 L (136-145) mmol/L Potassium 3.8 (3.5-5.1) mmol/L Chloride 93 L (98-107) mmol/L Carbon Dioxide 24 (21-32) mmol/L Anion Gap 10.0 (3-11) BUN 14 (7-18) mg/dl Creatinine 1.11 (0.6-1.4) mg/dl Est Cr Clr Drug Dosing Not Reportable Est GFR ( Amer) 85.0 Est GFR (Non-Af Amer) 73.3 BUN/Creatinine Ratio 12.8 (10-20) Glucose 124 H (70-99) mg/dl Calcium 9.8 (8.5-10.1) mg/dl Total Bilirubin 1.5 H (0.2-1) mg/dl AST 24 (15-37) U/L ALT 30 (12-78) U/L Alkaline Phosphatase 44 L (45-117) U/L Total Creatine Kinase (39-308) U/L Troponin I (0-0.045) ng/ml NT-Pro-B Natriuret Pep (0-900) pg/ml Total Protein 7.0 (6.4-8.2) gm/dl Albumin 3.9 (3.4-5.0) gm/dl Globulin 3.1 (2.5-4.0) gm/dl Albumin/Globulin Ratio 1.3 (0.9-2) Lyme Disease IgG Ab (Negative) Lyme Disease IgM Ab (Negative) 06/02/19 06/02/19 06/02/19 Range/Units 08:35 08:35 08:35 WBC (4.8-10.8) K/uL RBC (4.7-6.1) M/uL Hgb (14.0-18.0) g/dL Hct (42-52) % MCV (80-100) fL MCH (25-34) pg MCHC (32-36) g/dL RDW Std Deviation (36.4-46.3) fL RDW Coeff of Nafisa (11.5-14.5) % Plt Count (130-400) K/uL MPV (7.4-10.4) fL Immature Gran % (Auto) % Neut % (Auto) % Lymph % (Auto) % Trigg % (Auto) % Eos % (Auto) % Baso % (Auto) % Immature Gran # (Auto) (0.00-0.02) K/uL Neut # (Auto) (1.4-6.5) K/uL Lymph # (Auto) (1.2-3.4) K/uL Trigg # (Auto) (0.11-0.59) K/uL Eos # (Auto) (0-0.5) K/uL Baso # (Auto) (0-0.2) K/uL PT (9.0-12.0) Seconds INR (0.9-1.1) APTT (21.0-31.0) Seconds PTT Ratio Sodium (136-145) mmol/L Potassium (3.5-5.1) mmol/L Chloride (98-107) mmol/L Carbon Dioxide (21-32) mmol/L Anion Gap (3-11) BUN (7-18) mg/dl Creatinine (0.6-1.4) mg/dl Est Cr Clr Drug Dosing Est GFR ( Amer) Est GFR (Non-Af Amer) BUN/Creatinine Ratio (10-20) Glucose (70-99) mg/dl Calcium (8.5-10.1) mg/dl Total Bilirubin (0.2-1) mg/dl AST (15-37) U/L ALT (12-78) U/L Alkaline Phosphatase (45-117) U/L Total Creatine Kinase 260 (39-308) U/L Troponin I < 0.015 (0-0.045) ng/ml NT-Pro-B Natriuret Pep 240 (0-900) pg/ml Total Protein (6.4-8.2) gm/dl Albumin (3.4-5.0) gm/dl Globulin (2.5-4.0) gm/dl Albumin/Globulin Ratio (0.9-2) Lyme Disease IgG Ab Negative (Negative) Lyme Disease IgM Ab Negative (Negative) MDM Narrative Patient was seen and evaluated as above in room B 10. Review was performed of nursing notes and vital signs. After obtaining a thorough history and physical examination the above work up was performed. He presents to us today with suspected allergic reaction. He has no evidence of infection or subjective complaints of infectious symptoms. He has a tremendous amount of hives, particularly in the AC joint, axilla, low back and groin bilaterally. He began 14 days ago taking Plavix, fish oil, as well as pantoprazole. These are the only changes that he is aware of prior to beginning the suspect allergic reaction. Shortly after the IV placement the patient became hypotensive and initially it was thought that this is likely a vasovagal response to this. Unfortunately his hypotension persisted for almost half an hour and it was felt that this could be related to the allergic reaction. Concern was for anaphylaxis. Fluids were provided, he was bolused with 1 L of fluid. His pressure responded to this quite well and his symptoms did as well. He was also medicated with IV Decadron, Benadryl and Pepcid. I suspect this is likely an allergic reaction. Of additional history, he notes that his biological mother has had to ICU stay secondary to allergic reaction from generic medication binders/fillers. He notes that the Plavix prescription is generic. He did not take it last night. The patient was reevaluated and began with bilateral hand edema. For this reason it was felt that anaphylaxis was likely developing and he was given IM epinephrine. He had near immediate improvement of his symptoms. Throughout his stay his blood pressure has at times been low but responded well with the fluids. I again do not suspect any infectious etiology and do not suspect sepsis. Because of the patient's symptoms it was felt that he warranted inpatient management to trend the suspect allergic reaction. Case discussed with the attending physician as well as the hospitalist. Please refer to further documentation regarding his stay. Labs reveal no leukocytosis or significant anemia. There is hyponatremia at 127. T bili at 1.5. Troponin is negative. Urinalysis is negative. Lyme testing negative. He is EKG reveals sinus bradycardia at a rate of 51 bpm. TWI in the inferior leads noted. GCS: 15 In the evaluation and treatment of this patient the following differential diagnoses were entertained: Anaphylaxis, allergic reaction, sepsis, cellulitis, among others. Impression & Plan Anaphylactic reaction Discharge Plan Visit Data *Final* Discharge Date/Time: 06/02/19 14:06 Chief Complaint: Allergic Reaction Stated Complaint: ALLERGIC RXN ED Provider: Alonso Meyer ED Midlevel Provider: Mat Mccullough Discharge Problem: Anaphylactic reaction Patient Disposition: Admitted As Inpatient Condition: Good Discharge Instructions Interventions: ED Discharge Assessment Last Done: 06/02/19 14:06
[2019-06-02 08:45] LABS: Basophils # (auto) 0.01 K/uL (0-0.2); Basophils % (auto) 0.1 %; Eosinophils # (auto) 0.04 K/uL (0-0.5); Eosinophils % (auto) 0.5 %; Hematocrit (blood only) 39.9 % (42-52); Hemoglobin 14.7 g/dL (14.0-18.0); Immature Granulocytes # (auto) 0.02 K/uL (0.00-0.02); Immature Granulocytes % (auto) 0.3 %; Lymphocytes # (auto) 0.78 K/uL (1.2-3.4); Lymphocytes % (auto) 10.5 %; Mean Corpuscular Hgb Conc 36.8 g/dL (32-36); Mean Corpuscular Volume 86.9 fL (80-100); Mean Platelet Volume 9.5 fL (7.4-10.4); Monocytes # (auto) 0.35 K/uL (0.11-0.59); Monocytes % (auto) 4.7 %; Neutrophils % (auto) 83.9 %; Platelet Count 197 K/uL (130-400); RDW Coefficient of Variation 12.8 % (11.5-14.5); RDW Standard Deviation 40.9 fL (36.4-46.3); Red Blood Count 4.59 M/uL (4.7-6.1)
[2019-06-02] MEDS ORDERED: DiphenhydrAMINE HCL 50 MG/ML VIAL IV STA (08:47)
[2019-06-02] MEDS ORDERED: FAMOTIDINE 20MG IV PUSH 20 MG/5 ML SYR IV STA (08:47)
[2019-06-02] MEDS ORDERED: DEXAMETHASONE SOD PHOSPHATE 10 MG in SYRINGE 0 ML IV STA (08:47)
[2019-06-02 08:58] LABS: INR 1.3 (0.9-1.1); Partial Thromboplastin Time 27.6 Seconds (21.0-31.0); Prothrombin Time 12.8 Seconds (9.0-12.0)
[2019-06-02] MEDS ORDERED: DEXAMETHASONE **PF** INJ 10 MG/ML VIAL ONE (09:06)
[2019-06-02 09:07] LABS: Alanine Aminotransferase 30 U/L (12-78); Albumin Level 3.9 gm/dl (3.4-5.0); Aspartate Aminotransferase 24 U/L (15-37); BUN Creatinine Ratio 12.8 (10-20); Blood Urea Nitrogen 14 mg/dl (7-18); Calcium 9.8 mg/dl (8.5-10.1); Carbon Dioxide 24 mmol/L (21-32); Chloride 93 mmol/L (98-107); Est GFR (Non-African American) 73.3; Glucose 124 mg/dl (70-99); Potassium 3.8 mmol/L (3.5-5.1); Sodium 127 mmol/L (136-145)
[2019-06-02 09:09] LABS: Albumin Globulin Ratio 1.3 (0.9-2); Alkaline Phosphatase 44 U/L (45-117); Bilirubin,Total 1.5 mg/dl (0.2-1); Globulin 3.1 gm/dl (2.5-4.0)
[2019-06-02] MEDS ORDERED: SODIUM CHLORIDE 0.9% 1000ML 1,000 ML IV SCH ×2 (09:30→11:15)
[2019-06-02 09:38] LABS: Creatine Kinase 260 U/L (39-308); Troponin I < 0.015 ng/ml (0-0.045)
[2019-06-02 09:44] LABS: Lyme Ab IgG w/WB Rflx Negative (Negative); Lyme Ab IgM w/WB Rflx Negative (Negative)
[2019-06-02] MEDS ORDERED: EPINEPHrine INJ 1 MG/ML AMP IM STA (11:35)
[2019-06-02] MEDS ORDERED: EPINEPHRINE ADULT AUTO-INJECT 0.3 MG SYR IM STA (12:37)
--- NOTE | 2019-06-02 13:04 | History & Physical Report ---
Date of Service June 02, 2019 Assessment & Plan (1) Anaphylactic reaction: Admit to to PCU on telemetry -Vital signs every 4 hours -Continue IV fluid hydration -Solu-Medrol 40 mg every 8 hours -Benadryl 25 mg every 6 hours IV -EpiPen 0.3 mg IM hives -Famotidine 20 mg IV daily -DVT prophylaxis Lovenox -Full code Present on Admission?: Yes (2) CAD (coronary artery disease), [place] coronary artery: Stable at this time. Troponin 0 0.015. Continue home medicine. -Metoprolol succinate 25 mg p.o. nightly, -Clopidogrel 75 mg tablet -nebivolol 5 mg p.o. nightly Present on Admission?: Yes (3) GERD (gastroesophageal reflux disease): Continue famotidine 20 mg IV daily Present on Admission?: Yes (4) Hypertension: As the above -Heart healthy diet, low-sodium Present on Admission?: Yes (5) Gout: Stable continue allopurinol pulmonal 100 mg tablet p.o. twice daily History of Present Illness EKG bradycardia 51 otherwise normal sinus rhythm Chief Complaint: Anaphylactic reaction Primary Care Provider: Guero Gonzalez DO Patient is a 59 [id number] male male with past medical history of TIA, asthma, coronary artery disease, GERD, hyperlipidemia, hypertension, allergic rhinitis, gout presents to the emergency room brought by his with a complaint that since Sunday he starts to have hives. Patient said that he was sitting at the [facility] with his drinking 1 beer when he started to feel that his elbow becomes became itchy red and swollen and then after that moved to his axilla, inguinal area above the back. 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 On Sunday hives continued and patient continues to continue to give him Benadryl for pain that it is going to go away. Patient did not have at that time any nausea vomiting diarrhea throat swelling or shortness of breath. On Sunday situation continued and on Sunday patient was about to go to his work when he noticed when his that now he has again widespread hives noticed and they were now in around his face and mouth. That prompted her to bring patient to the emergency room immediately. Once when patient arrived to the emergency room his blood pressure was 100 oh 6/68 but then dropped to 92/54 the lowest one was 84/54. Patient was given IV Decadron 10 mg IV stat, diphenhydramine 50 mg IV stat epinephrine 0.3 mg IM.then 2 L of normal saline bolus and famotidine 20 mg IV stat. After giving IM EpiPen hives were significantly decreased and blood pressure was better maintained so in the next 1 to 1-hour patient received another epi of 3 0.3 mg IM before he was transferred to the floor at PCU on telemetry for observation. Labs were reviewed and white blood cell count is 7.4 hemoglobin 14.7 hematocrit 39.9 platelets 194, INR 1.3 PT 12.8, sodium 127 potassium 3.8 chloride 93 BUN 14 GFR 85 creatinine 1.11, troponin 0 0.015. Chest x-ray pending. Decision was made to admit patient to PCU on telemetry Allergies Allergy/AdvReac Type Severity Reaction Status Date / Time No Known Allergies Allergy Verified 06/02/19 08:24 Home Medications Home Medications Medication Instructions Recorded Confirmed Type albuterol sulfate HFA 90 2 puff INHALATION Q4H PRN 05/22/19 06/02/19 History mcg/actuation aerosol inhaler allopurinol 100 mg tablet 100 mg PO BID #180 tab 05/22/19 06/02/19 Rx cetirizine 10 mg tablet 10 mg PO QAM 05/22/19 06/02/19 History clopidogrel 75 mg tablet 75 mg PO DAILY #90 tab 05/22/19 06/02/19 Rx fluticasone propionate 50 1 spray INTRANASAL BID 05/22/19 06/02/19 History mcg/actuation nasal spray,suspension montelukast 10 mg tablet 10 mg PO HS #90 tab 05/22/19 06/02/19 Rx naproxen 500 mg tablet 500 mg PO BID PRN 05/22/19 06/02/19 History omega-3 fatty acids 1,000 mg 1,000 mg PO DAILY 05/22/19 06/02/19 History capsule pantoprazole 20 mg tablet,delayed 20 mg PO DAILY #90 tab 05/22/19 06/02/19 Rx release rosuvastatin 20 mg tablet 20 mg PO HS #90 tab 05/22/19 06/02/19 Rx valsartan 320 1 tab PO QAM #90 tab 05/22/19 06/02/19 Rx mg-hydrochlorothiazide 25 mg tablet varicella-zoster glycoE [id number] 0.5 ml IM .COMPLEX #1 ea 05/22/19 06/02/19 Rx adj(PF) 50 mcg/0.5 mL IM susp, kit verapamil 120 mg tablet 120 mg PO BID #180 tab 05/22/19 06/02/19 Rx metoprolol succinate 25 mg PO HS 06/02/19 06/02/19 History nebivolol [Bystolic] 5 mg PO HS 06/02/19 06/02/19 History Past Med/Surg History Medical History Asthma (Chronic) CAD (coronary artery disease), [place] coronary artery (Chronic) GERD (gastroesophageal reflux disease) (Chronic) Hyperlipidemia (Chronic) Hypertension (Chronic) Allergic rhinitis Surgical History H/O right heart catheterization [place] teeth removed Family History Father Myocardial infarction Heart disease Mother Parkinson disease Social History Preferred Language: Latvian Communication Ability: Effective Visual Impairment: No Limitations Hearing Ability: Normal Ladle Handler Required: No Beliefs That Will Affect Care: None marital status: Current Living Situation: Spouse current occupational status: employed current occupation: [employer] the [employer] at [employer] Feels Safe at Home: Yes Smoking Status: Never smoker Second Hand Exposure: No ; Hx Alcohol Use: Yes Alcohol type: beer and wine Alcohol Intake Frequency: Weekly Alcohol Intake Frequency Comment: One or 2 beers per week at most. Hx Substance Use: No Childhood Exposure to Second-Hand Smoke: No Dental Care, Regularly: Yes Physical Activity Frequency: 1-2 Times per Week Seatbelt Use: always Review of Systems Review of Systems: All systems reviewed & are unremarkable except as noted in HPI & below Physical Exam Constitutional: WD/WN, vitals as above well developed and + obese Eyes: PERRL, conjunctivae normal, anicteric sclerae ENMT: external ear and nose normal, oropharynx normal Neck: trachea midline, no thyromegaly Respiratory: normal respiratory effort, lungs clear to auscultation Cardiovascular: RRR, no murmur, no edema Chest (Breasts): normal inspection/palpation of breasts Gastrointestinal (Abdomen): normal bowel sounds, soft, nontender, no hepatosplenomegaly Musculoskeletal: no cyanosis or clubbing, extremities motor strength 5/5 Skin: Multiple hives located in the armpits lower back inguinal area. Improving after administration of EpiPen. Neurologic: patellar DTR's 2+ bilat, sensation intact Psychiatric: A+Ox3, euthymic affect Genitourinary: no testicular masses, no penis abnormality Results & Data Vital Signs (Past 12 Hours) Vital Signs Temp Pulse Pulse Resp BP BP Pulse Ox 06/02/19 11:35 56 L 55 L 16 92/54 L 92/54 L 96 06/02/19 11:30 57 L 16 100/63 97 06/02/19 11:15 57 L 20 106/68 97 06/02/19 11:00 56 L 21 94/66 L 97 06/02/19 10:45 64 17 93/64 L 97 06/02/19 10:30 53 L 24 92/67 L 97 06/02/19 10:15 54 L 22 98/65 L 97 06/02/19 10:00 53 L 24 89/64 L 98 06/02/19 09:45 50 L 19 87/64 L 98 06/02/19 09:30 50 L 22 87/58 L 98 06/02/19 09:25 51 L 51 L 23 87/60 L 87/60 L 98 06/02/19 09:24 50 L 21 78/47 L 98 06/02/19 09:16 53 L 19 84/53 L 96 06/02/19 09:15 53 L 18 80/49 L 97 06/02/19 09:07 52 L 17 83/52 L 97 06/02/19 09:00 55 L 17 83/55 L 95 06/02/19 08:56 54 L 13 95 06/02/19 08:50 55 L 53 L 15 72/42 L 72/42 L 96 06/02/19 08:30 96 06/02/19 08:07 37.2 C 68 20 105/71 96 Code Status & VTE Plan Code Status Full code VTE Prophylaxis Plan VTE Prophylaxis will be ordered: Yes PG Care Time/CCT Total # of Minutes Spent Total Time Spent with Patient: Total time spent is greater than 50% in coordination of care (as documented) at patient's floor/unit and/or counseling patient:
[2019-06-02 14:15] LABS: Appearance Urine Clear (Clear); Bilirubin Urine Negative (Negative); Blood Urine Negative (Negative); Color Urine Dark Yellow; Glucose Urine UA Negative (Negative); Ketones Urine 1+ (Negative); Leukocyte Esterase Urine Negative (Negative); Nitrite Urine Negative (Negative); Protein Urine Negative (Negative); Specific Gravity Urine 1.018 (1.000-1.030); Urobilinogen Urine Negative (Negative); pH Urine 6.5 (4.5-7.5)
[2019-06-02] MEDS ORDERED: [UNRECOGNIZED DRUG - OTHER] IM SCH (14:50)
[2019-06-02] MEDS ORDERED: MAGNESIUM HYDROXIDE SUSP 30 ML UDC PO PRN (14:50)
[2019-06-02] MEDS ORDERED: ALUMINUM/MAGNESIUM SUSP 30 ML UDC PO PRN (14:50)
[2019-06-02] MEDS ORDERED: ZOLPIDEM TARTRATE 5 MG TAB PO PRN (14:50)
[2019-06-02] MEDS ORDERED: POLYETHYLENE (MIRALAX) 17 GM PACK PO PRN (14:50)
[2019-06-02] MEDS ORDERED: EPINEPHRINE ADULT AUTO-INJECT 0.3 MG SYR IM PRN (14:50)
[2019-06-02] MEDS: SODIUM CHLORIDE 0.9% 1000ML 1,000 ML IV SCH (15:33)
[2019-06-02] MEDS: DiphenhydrAMINE HCL 50 MG/ML VIAL IV PRN (16:01)
[2019-06-02] MEDS: methylPREDNISolone 40 MG in SYRINGE 0 ML IV SCH (16:18)
--- NOTE | 2019-06-02 18:01 | XRay Report ---
XR chest Pre-admission PA/Lat CLINICAL HISTORY: 59 years-old Male presenting with anaphylactic reaction. TECHNIQUE: PA and lateral views of the chest were obtained. COMPARISON: None. FINDINGS: Cardiomediastinal silhouette normal. Blunting of the left costophrenic angle, although there is no ev ident pleural effusion on lateral view. Minimal basilar opacity evident on lateral view, likely on th e left. No pneumothorax. Osseous structures normal. Upper abdomen normal. IMPRESSION: 1. Minimal basilar opacities likely atelectasis or scarring. No convincing evidence of acute cardiop ulmonary disease. Electronically signed by: Venkatesh Kim M.D. 06/02/2019 6:00 PM
[2019-06-02] MEDS ORDERED: Nursing to Pharmacy Communication ONE (19:49)
[2019-06-02] MEDS ORDERED: EPINEPHRINE IM PRN (20:03)
[2019-06-02] MEDS: ENOXAPARIN INJ 40 MG/0.4 ML SYR SQ SCH (20:37)
[2019-06-02] MEDS: LORazepam 1 MG TAB PO PRN (20:37)
[2019-06-02] MEDS: NEBIVOLOL HCL 5 MG TAB PO SCH (20:38)
[2019-06-02] MEDS ORDERED: CLOPIDOGREL BISULFATE 75 MG TAB PO SCH (21:00)
[2019-06-02] MEDS ORDERED: METOPROLOL SUCC 25MG EXT REL TAB PO SCH (21:00)
[2019-06-02] MEDS ORDERED: NEBIVOLOL HCL 5 MG TAB PO SCH (21:00)
[2019-06-03] MEDS ORDERED: EPINEPHRINE IV ONE
[2019-06-03] MEDS ORDERED: EPINEPHRINE IM ONE
[2019-06-03] MEDS: SODIUM CHLORIDE 0.9% 1000ML 1,000 ML IV SCH ×4 (00:29→21:00)
[2019-06-03] MEDS: methylPREDNISolone 40 MG in SYRINGE 0 ML IV SCH ×4 (00:29→23:53)
[2019-06-03] MEDS: DiphenhydrAMINE HCL 50 MG/ML VIAL IV PRN ×3 (00:46→21:00)
[2019-06-03] MEDS: LORazepam 1 MG TAB PO PRN ×2 (02:08→13:45)
[2019-06-03 07:16] LABS: Hematocrit (blood only) 35.8 % (42-52); Hemoglobin 13.3 g/dL (14.0-18.0); Immature Granulocytes # (auto) 0.02 K/uL (0.00-0.02); Immature Granulocytes % (auto) 0.2 %; Lymphocytes # (auto) 0.38 K/uL (1.2-3.4); Lymphocytes % (auto) 3.3 %; Mean Corpuscular Hgb Conc 37.2 g/dL (32-36); Mean Corpuscular Volume 87.1 fL (80-100); Mean Platelet Volume 9.3 fL (7.4-10.4); Monocytes # (auto) 0.19 K/uL (0.11-0.59); Monocytes % (auto) 1.6 %; Neutrophils # (auto) 11.08 K/uL (1.4-6.5); Neutrophils % (auto) 94.9 %; Platelet Count 203 K/uL (130-400); Red Blood Count 4.11 M/uL (4.7-6.1); White Blood Count 11.67 K/uL (4.8-10.8)
[2019-06-03 07:48] LABS: Albumin Level 3.4 gm/dl (3.4-5.0); Creatinine Clr Calc Pharmacy 91.7 ml/min; Est GFR (African American) 98.8; Est GFR (Non-African American) 85.2
[2019-06-03 07:53] LABS: Albumin Globulin Ratio 1.1 (0.9-2); Bilirubin,Total 0.5 mg/dl (0.2-1); Globulin 3.1 gm/dl (2.5-4.0); Total Protein 6.5 gm/dl (6.4-8.2)
[2019-06-03] MEDS: HCTZ PO SCH ×2 (08:49→09:46)
[2019-06-03] MEDS: VALSARTAN PO SCH ×2 (08:49→09:46)
[2019-06-03] MEDS: PROTONIX PO SCH ×2 (08:49→09:43)
[2019-06-03] MEDS: OMEGA PO SCH (08:51)
[2019-06-03] MEDS ORDERED: VALSARTAN 80 MG TAB PO SCH (09:00)
[2019-06-03] MEDS ORDERED: OMEGA-3 (PURIFIED FISH OIL) 1 GM CAP PO SCH (09:00)
[2019-06-03] MEDS ORDERED: PANTOprazole 40 MG TAB PO SCH (09:00)
[2019-06-03] MEDS: ACETAMINOPHEN 325 MG TAB PO PRN ×2 (09:20→17:56)
[2019-06-03] MEDS: FAMOTIDINE 20 MG in SYRINGE 3 ML IV SCH ×2 (10:00→21:00)
--- NOTE | 2019-06-03 10:07 | Consultation ---
Date of Consultation June 03, 2019 Assessment & Plan (1) Anaphylactic reaction: This is a 59-year-old male who presents with a history of hypotension and progressively worsening hives that required multiple doses of epinephrine. His history is most consistent with a drug allergy. My suspicion is highest for pantoprazole. We have observed in increasing number of reactions in the allergy community to pantoprazole, and often presents after being on the medication for week or two. Some of these can be severe enough to result in anaphylaxis. Unfortunately, we cannot exclude Plavix as an allergy, as both of these medications were started that same time. For now, I recommend that we avoid both of these, and we will list that as an allergy until we can further sort this out. I recommend we perform skin testing in our allergy clinic. Unfortunately, we need to wait about 4-6 weeks to perform skin testing, as patients often go into refractory period after anaphylaxis were skin testing can be falsely negative. It would be helpful to check a blood tryptase level. In drug allergies, the blood tryptase may be elevated for days after reaction, and this could help to confirm a drug allergy. There are a few other considerations, however. Some patients may develop idiopathic anaphylaxis, where they may be prone to developing anaphylaxis without a clear drug, food, other trigger. There are also a variety of mast cell disorders that can present with hives and systemic symptoms. As result, I recommend that we send him home with an EpiPen to have on hand. Will we see him in clinic, we can also rule out a shellfish allergy given the onset of symptoms after ingesting oysters. In terms of discharge, we usually recommend that patients with hypotension be observed for 24 hours after the last dose of epinephrine to confirm that they do not develop a late phase reaction. I believe that he should be in the clear, and would be okay to be discharged. We did discuss that if an issues were to arise at home, that they should call me. We can certainly see him back sooner if the hives return. (2) Drug allergy: History of Present Illness Since then, since then, Attending Physician: Reva Fleming MD History of Present Illness Patient is a 59 [id number] male male with past medical history of TIA, asthma, coronary artery disease, GERD, hyperlipidemia, hypertension, allergic rhinitis, gout. About two weeks ago, he was diagnosed with a TIA, which required an emergency room visit. Symptoms seem to come on after he had about a dozen oysters and then developed some GI symptoms some lightheadedness and came to the emergency room. He was found to be hypertensive and was treated for presumed TIA. He was started on Plavix as well as Protonix. He was previously on omeprazole, and this was changed to Protonix two weeks ago. About 10 days ago, he started to develop hives. These got progressively worse over the next few days, eventually leading him to go to the ER. Patient said that he was sitting at the [facility] with his drinking 1 beer when he started to feel that his elbow becomes became itchy red and swollen and then after that moved to his axilla, inguinal area above the back. 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 On Sunday hives continued and patient continues to continue to give him Benadryl for pain that it is going to go away. Patient did not have at that time any nausea vomiting diarrhea throat swelling or shortness of breath. On Sunday situation continued and on Sunday patient was about to go to his work when he noticed when his that now he has again widespread hives noticed and they were now in around his face and mouth. That prompted her to bring patient to the emergency room immediately. Once when patient arrived to the emergency room his blood pressure was 102/62 but then dropped to 87/64. Patient was given IV Decadron 10 mg IV stat, diphenhydramine 50 mg IV stat epinephrine 0.3 mg IM.then 2 L of normal saline bolus and famotidine 20 mg IV stat. After giving IM EpiPen hives were significantly decreased and blood pressure was better maintained so in the next 1 to 1-hour patient received another epi of 3 0.3 mg IM before he was transferred to the floor at PCU on telemetry for observation. Since then, the hives have improved, and his blood pressure has normalized. Allergies Allergy/AdvReac Type Severity Reaction Status Date / Time pantoprazole Allergy Severe Verified 06/03/19 12:12 clopidogrel [From Plavix] Allergy Unknown Verified 06/03/19 12:12 Home Medications Home Medications Medication Instructions Recorded Confirmed Type albuterol sulfate HFA 90 2 puff INHALATION Q4H PRN 05/22/19 06/02/19 History mcg/actuation aerosol inhaler allopurinol 100 mg tablet 100 mg PO BID #180 tab 05/22/19 06/02/19 Rx cetirizine 10 mg tablet 10 mg PO QAM 05/22/19 06/02/19 History clopidogrel 75 mg tablet 75 mg PO DAILY #90 tab 05/22/19 06/02/19 Rx fluticasone propionate 50 1 spray INTRANASAL BID 05/22/19 06/02/19 History mcg/actuation nasal spray,suspension montelukast 10 mg tablet 10 mg PO HS #90 tab 05/22/19 06/02/19 Rx naproxen 500 mg tablet 500 mg PO BID PRN 05/22/19 06/02/19 History omega-3 fatty acids 1,000 mg 1,000 mg PO DAILY 05/22/19 06/02/19 History capsule pantoprazole 20 mg tablet,delayed 20 mg PO DAILY #90 tab 05/22/19 06/02/19 Rx release rosuvastatin 20 mg tablet 20 mg PO HS #90 tab 05/22/19 06/02/19 Rx valsartan 320 1 tab PO QAM #90 tab 05/22/19 06/02/19 Rx mg-hydrochlorothiazide 25 mg tablet varicella-zoster glycoE [id number] 0.5 ml IM .COMPLEX #1 ea 05/22/19 06/02/19 Rx adj(PF) 50 mcg/0.5 mL IM susp, kit verapamil 120 mg tablet 120 mg PO BID #180 tab 05/22/19 06/02/19 Rx metoprolol succinate 25 mg PO HS 06/02/19 06/02/19 History nebivolol [Bystolic] 5 mg PO HS 06/02/19 06/02/19 History Patient History Medical History Asthma (Chronic) CAD (coronary artery disease), [place] coronary artery (Chronic) GERD (gastroesophageal reflux disease) (Chronic) Hyperlipidemia (Chronic) Hypertension (Chronic) Allergic rhinitis Surgical History H/O right heart catheterization [place] teeth removed Family History Father Myocardial infarction Heart disease Mother Parkinson disease Social History Preferred Language: [place] Communication Ability: Effective Visual Impairment: No Limitations Hearing Ability: Normal Family Resource Specialist Required: No Beliefs That Will Affect Care: None marital status: Current Living Situation: Spouse current occupational status: employed 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 Hx Substance Use: No Childhood Exposure to Second-Hand Smoke: No Dental Care, Regularly: Yes Physical Activity Frequency: 1-2 Times per Week Seatbelt Use: always Review of Systems Constitutional: no fever and no chills Eyes: as per Subjective / HPI; no eye pain Ear, Nose, Mouth, Throat: as per Subjective / HPI Respiratory: as per Subjective / HPI Cardiovascular: as per Subjective / HPI Gastrointestinal: as per Subjective / HPI Genitourinary: + as per Subjective / HPI; no dysuria and no difficulty urinating Musculoskeletal: as per Subjective / HPI; no joint pain, no myalgia and no muscle weakness Integumentary: as per Subjective / HPI Neurologic: as per Subjective / HPI; no generalized weakness and no loss of sensation Endocrine: as per Subjective / HPI; no fatigue Hematologic / Lymphatic: as per Subjective / HPI; no lymphadenopathy Allergy / Immunological: as per Subjective / HPI Physical Exam Constitutional: WD/WN, vitals as above no altered mental status and not in distress Eyes: no eyelid abnormality, no conjunctival abnormality and sclerae not anicteric ENMT: Ears: no TM abnormality and able to visualize TM Nose: no turbinate abnormality, no nasal mucous membrane abnormality, no nasal discharge, nasal mucous membranes not dry and no nasal polyps Mouth: no lip abnormality Throat: uvula midline; no tonsil abnormality Neck: trachea midline Thyroid: normal thyroid Respiratory: no retractions, does not use accessory muscles, no cough, normal respiratory pattern, expiratory phase not prolonged and no audible wheezes Auscultation: lungs clear to auscultation bilaterally; no crackles, no rhonchi and no wheezes Cardiovascular: Rate/Rhythm: regular rate and regular rhythm Heart Sounds: normal S1 and normal S2; no murmur and no cardiac rub Extremities: no edema Gastrointestinal (Abdomen): Inspection/Auscultation: abdomen normal to inspection and normal bowel sounds Percussion/Palpation: abdomen nontender Musculoskeletal: Head/Neck/Chest: + head abnormal to inspection Skin: + rash (He continues to have some scattered hives on the arms and legs.); no dry skin and no erythema Neurologic: awake; not confused Psychiatric: A+Ox3, euthymic affect Lymphatic: no lymphadenopathy Results & Data Vital Signs (Past 12 Hours) Vital Signs Temp Pulse Resp BP Pulse Ox 06/03/19 07:26 36.6 C 95 H 16 114/73 95 06/03/19 03:47 37.0 C 93 H 17 104/68 92 06/02/19 23:31 37.0 C 89 17 103/68 93 (1) Anaphylactic reaction Encounter type: initial encounter Qualified Code(s): T78.2XXA - Anaphylactic shock, unspecified, initial encounter
--- NOTE | 2019-06-03 10:54 | Hospitalist Progress Note ---
Date of Service June 03, 2019 Assessment & Plan (1) Anaphylactic reaction: Likely secondary to drug reaction to wither Plavix or Protonix as were both recently added However, it appears after further review, he was also recently started on Bystolic--> possible this could be causing his symptoms as well? Much improved now after IV steroids, IV pepcid, epi pen x 4 in ER, and IV benadryl -add back on home Zyrtec -continue IV Pepcid, steroids, benadryl -Appreciate Tax Form Preparer help tremendously -checking tryptase in blood as if high, is consistent with drug reaction -plan to f/u with Tax Form Preparer for further testing in 4-6 weeks -will send home with Epi Pen on dc tomorrow after further observation to ensure no further late phase anaphylaxis -dc Plavix and convert back to baby ASA -dc Protonix and would NOT go back to any other PPIs (2) CAD (coronary artery disease), [place] coronary artery: Stable at this time. Has a h/o high coronary calcium score, had cath several years ago which showed nonobstructive CAD, is medically managed - Troponin 0 0.015 -currently is taking Bystolic on a one month supply but insurance would not cover and then plans to return back to Toprol XL -restart ASA 81mg daily and dc Plavix in case of reaction as above -nebivolol 5 mg p.o. nightly, however given this is also a new drug, would also recommend converting back to Metoprolol upon discharge (3) GERD (gastroesophageal reflux disease): Continue famotidine 20 mg IV bid -dc all PPIs in case of cause of anaphylaxis (4) Hypertension: Controlled -continue beta nando -holding verapamil, valsartan HCTZ for previous hypotension -would recommend discontinuing HCTZ given chronic hyponatremia -Heart healthy diet, low-sodium (5) Gout: Stable continue allopurinol 100 mg tablet p.o. twice daily (6) Drug allergy: as above (7) Asthma: extrinsic -continue albuterol inhaler prn restart home SINgulair (8) Hyperlipidemia: continue statin (9) Allergic rhinitis: restart home Flonase, Zyrtec (10) Hyponatremia: Na+ low at 127 on admission, chronically low on previous admission in 131- 133 range Could be from HCTZ -dc HCTZ -improved now to 131 with NS and likely slightly higher once corrected for hyperglycemia -follow BMP (11) Hyperglycemia: secondary to corticosteroids -start accuchecks, SSI, Lantus 5 units now (12) DVT prophylaxis: Lovenox SQ Dispo-remain on PCU overnight in case of late phae anaphylaxis but can likely dc to home tomorrow on prednisone taper, pepcid, benadryl, with Epi Pen Subjective Pt reports feelin g achy all over, but hives and itching much improved. Has a mild headache. No further tongue or lip swelling, no trouble swallowing, no SOB or wheeze. No abd pain or nausea. No chest pain. I discussed his care at the bedside with Dr. Lopez of Allergy/Immunology Review of Systems Review of Systems: All systems reviewed & are unremarkable except as noted in HPI & below Physical Exam Constitutional: WD/WN, vitals as above Eyes: PERRL, conjunctivae normal, anicteric sclerae ENMT: external ear and nose normal, oropharynx normal Neck: trachea midline, no thyromegaly Respiratory: normal respiratory effort, lungs clear to auscultation Cardiovascular: RRR, no murmur, no edema Gastrointestinal (Abdomen): normal bowel sounds, soft, nontender, no hepatosplenomegaly Musculoskeletal: Extremities: extremities normal to inspection; no cyanosis and no clubbing Skin: + rash (as below) Axilla, inguinal regions, lower back all with resolving erythematous, maculopapular rash and wheals, appearing much improved from pictures from previous on 's cell phone. No lesions in the oropharynx Legs with fine macular erythematous rash, mild edema of hands and feet Neurologic: moves all extremities and awake; no focal motor deficits Psychiatric: A+Ox3, euthymic affect Results & Data Vital Signs (Past 12 Hours) Vital Signs Temp Pulse Resp BP Pulse Ox 06/03/19 07:26 36.6 C 95 H 16 114/73 95 06/03/19 03:47 37.0 C 93 H 17 104/68 92 06/02/19 23:31 37.0 C 89 17 103/68 93 Laboratory Results 06/03/19 06/03/19 06/03/19 Range/Units 20:33 16:45 11:11 WBC (4.8-10.8) K/uL RBC (4.7-6.1) M/uL Hgb (14.0-18.0) g/dL Hct (42-52) % MCV (80-100) fL MCH (25-34) pg MCHC (32-36) g/dL RDW Std Deviation (36.4-46.3) fL RDW Coeff of Nafisa (11.5-14.5) % Plt Count (130-400) K/uL MPV (7.4-10.4) fL Immature Gran % (Auto) % Neut % (Auto) % Lymph % (Auto) % [place] % (Auto) % Eos % (Auto) % Baso % (Auto) % Immature Gran # (Auto) (0.00-0.02) K/uL Neut # (Auto) (1.4-6.5) K/uL Lymph # (Auto) (1.2-3.4) K/uL [place] # (Auto) (0.11-0.59) K/uL Eos # (Auto) (0-0.5) K/uL Baso # (Auto) (0-0.2) K/uL Sodium (136-145) mmol/L Potassium (3.5-5.1) mmol/L Chloride (98-107) mmol/L Carbon Dioxide (21-32) mmol/L Anion Gap (3-11) BUN (7-18) mg/dl Creatinine (0.6-1.4) mg/dl Est Cr Clr Drug Dosing ml/min Est GFR ( Amer) Est GFR (Non-Af Amer) BUN/Creatinine Ratio (10-20) Glucose (70-99) mg/dl POC Glucose 200 H 208 H 232 H (70-99) Calcium (8.5-10.1) mg/dl Total Bilirubin (0.2-1) mg/dl AST (15-37) U/L ALT (12-78) U/L Alkaline Phosphatase (45-117) U/L Total Protein (6.4-8.2) gm/dl Albumin (3.4-5.0) gm/dl Globulin (2.5-4.0) gm/dl Albumin/Globulin Ratio (0.9-2) Tryptase 06/03/19 06/03/19 06/03/19 Range/Units 10:51 07:05 07:05 WBC 11.67 H (4.8-10.8) K/uL RBC 4.11 L (4.7-6.1) M/uL Hgb 13.3 L (14.0-18.0) g/dL Hct 35.8 L (42-52) % MCV 87.1 (80-100) fL MCH 32.4 (25-34) pg MCHC 37.2 H (32-36) g/dL RDW Std Deviation 42.0 (36.4-46.3) fL RDW Coeff of Nafisa 13.0 (11.5-14.5) % Plt Count 203 (130-400) K/uL MPV 9.3 (7.4-10.4) fL Immature Gran % (Auto) 0.2 % Neut % (Auto) 94.9 % Lymph % (Auto) 3.3 % [place] % (Auto) 1.6 % Eos % (Auto) 0.0 % Baso % (Auto) 0.0 % Immature Gran # (Auto) 0.02 (0.00-0.02) K/uL Neut # (Auto) 11.08 H (1.4-6.5) K/uL Lymph # (Auto) 0.38 L (1.2-3.4) K/uL [place] # (Auto) 0.19 (0.11-0.59) K/uL Eos # (Auto) 0.00 (0-0.5) K/uL Baso # (Auto) 0.00 (0-0.2) K/uL Sodium 131 L (136-145) mmol/L Potassium 4.0 (3.5-5.1) mmol/L Chloride 101 (98-107) mmol/L Carbon Dioxide 22 (21-32) mmol/L Anion Gap 8.0 (3-11) BUN 16 (7-18) mg/dl Creatinine 0.98 (0.6-1.4) mg/dl Est Cr Clr Drug Dosing 91.7 ml/min Est GFR ( Amer) 98.8 Est GFR (Non-Af Amer) 85.2 BUN/Creatinine Ratio 16.0 (10-20) Glucose 216 H (70-99) mg/dl POC Glucose (70-99) Calcium 9.0 (8.5-10.1) mg/dl Total Bilirubin 0.5 D (0.2-1) mg/dl AST 14 L (15-37) U/L ALT 26 (12-78) U/L Alkaline Phosphatase 44 L (45-117) U/L Total Protein 6.5 (6.4-8.2) gm/dl Albumin 3.4 (3.4-5.0) gm/dl Globulin 3.1 (2.5-4.0) gm/dl Albumin/Globulin Ratio 1.1 (0.9-2) Tryptase Pending PG Care Time/CCT Total # of Minutes Spent Total Time Spent with Patient: Total time spent is greater than 50% in coordination of care (as documented) at patient's floor/unit and/or counseling patient:
[2019-06-03] MEDS ORDERED: ALBUTEROL HFA INHALER 8.5 GM INH PRN (11:15)
[2019-06-03] MEDS ORDERED: GLUCOSE 10 TABS/TUBE PO PRN (12:18)
[2019-06-03] MEDS ORDERED: GLUCAGON FOR INJ 1 MG VIAL SQ PRN (12:18)
[2019-06-03] MEDS ORDERED: GLUCOSE 40% GEL 15 GM TUBE PO PRN (12:18)
[2019-06-03] MEDS ORDERED: DEXTROSE 50% 50 ML SYRINGE IV PRN (12:18)
[2019-06-03] MEDS ORDERED: CARBOHYDRATES FOR HYPOGLYCEMIA PO PRN (12:18)
[2019-06-03] MEDS: ALLOPURINOL 100 MG TAB PO SCH ×2 (13:05→20:51)
[2019-06-03] MEDS: ASPIRIN 81 MG ECTAB PO SCH (13:05)
[2019-06-03] MEDS: FLUTICASONE PROPIONATE NA SPR 16 GM BTL NAE SCH ×2 (13:05→20:44)
[2019-06-03] MEDS: CETIRIZINE HCL 10 MG TABLET PO SCH (13:05)
[2019-06-03] MEDS: INSULIN GLARGINE SOLOSTAR 100 UNITS/ML 3 ML PEN SC SCH ×2 (13:46→21:12)
[2019-06-03] MEDS: INSULIN ASPART 100 UNITS/ML 3 ML PEN SC SCH ×2 (17:32→21:11)
[2019-06-03] MEDS: NEBIVOLOL HCL 5 MG TAB PO SCH (20:44)
[2019-06-03] MEDS: ENOXAPARIN INJ 40 MG/0.4 ML SYR SQ SCH (20:45)
[2019-06-03] MEDS ORDERED: ROSUVASTATIN CALCIUM 20 MG TAB PO SCH (21:00)
[2019-06-03] MEDS ORDERED: CLOPIDOGREL BISULFATE 75 MG TAB PO SCH (21:00)
[2019-06-03] MEDS ORDERED: MONTELUKAST SODIUM 10 MG TABLET PO SCH (21:00)
[2019-06-04] MEDS: SODIUM CHLORIDE 0.9% 1000ML 1,000 ML IV SCH (05:13)
[2019-06-04 06:22] LABS: Hemoglobin 12.6 g/dL (14.0-18.0); Immature Granulocytes # (auto) 0.02 K/uL (0.00-0.02); Immature Granulocytes % (auto) 0.2 %; Lymphocytes # (auto) 0.57 K/uL (1.2-3.4); Lymphocytes % (auto) 5.2 %; Mean Corpuscular Volume 89.1 fL (80-100); Mean Platelet Volume 9.6 fL (7.4-10.4); Monocytes # (auto) 0.28 K/uL (0.11-0.59); Monocytes % (auto) 2.6 %; Neutrophils # (auto) 10.02 K/uL (1.4-6.5); Platelet Count 215 K/uL (130-400); RDW Coefficient of Variation 13.4 % (11.5-14.5); RDW Standard Deviation 43.9 fL (36.4-46.3); Red Blood Count 3.93 M/uL (4.7-6.1); White Blood Count 10.89 K/uL (4.8-10.8)
[2019-06-04 06:57] LABS: Estimated Average Glucose 123 mg/dl; Hemoglobin A1C 5.9 % (4.5-5.6)
[2019-06-04 07:03] LABS: Albumin Level 3.1 gm/dl (3.4-5.0); Calcium 8.2 mg/dl (8.5-10.1); Creatinine Clr Calc Pharmacy 108.1 ml/min; Est GFR (African American) 112.1; Est GFR (Non-African American) 96.7; Potassium 4.6 mmol/L (3.5-5.1)
[2019-06-04 07:05] LABS: Albumin Globulin Ratio 1.1 (0.9-2); Bilirubin,Total 0.5 mg/dl (0.2-1); Globulin 2.8 gm/dl (2.5-4.0); Total Protein 5.9 gm/dl (6.4-8.2)
[2019-06-04] MEDS: methylPREDNISolone 40 MG in SYRINGE 0 ML IV SCH (08:14)
[2019-06-04] MEDS: ASPIRIN 81 MG ECTAB PO SCH (08:14)
[2019-06-04] MEDS: FLUTICASONE PROPIONATE NA SPR 16 GM BTL NAE SCH (08:14)
[2019-06-04] MEDS: INSULIN GLARGINE SOLOSTAR 100 UNITS/ML 3 ML PEN SC SCH (08:15)
[2019-06-04] MEDS: ALLOPURINOL 100 MG TAB PO SCH (08:17)
[2019-06-04] MEDS: CETIRIZINE HCL 10 MG TABLET PO SCH (08:17)
[2019-06-04] MEDS: OMEGA PO SCH (08:20)
[2019-06-04] MEDS: FAMOTIDINE 20 MG in SYRINGE 3 ML IV SCH (08:20)
[2019-06-04] MEDS: INSULIN ASPART 100 UNITS/ML 3 ML PEN SC SCH (08:21)
--- NOTE | 2019-06-04 11:14 | Discharge Summary ---
Date of Service June 04, 2019 Admission HPI Per Admitting Provider Patient is a 59 [id number] male male with past medical history of TIA, asthma, coronary artery disease, GERD, hyperlipidemia, hypertension, allergic rhinitis, gout presents to the emergency room brought by his with a complaint that since Sunday he starts to have hives. Patient said that he was sitting at the [facility] with his drinking 1 beer when he started to feel that his elbow becomes became itchy red and swollen and then after that moved to his axilla, inguinal area above the back. 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 6hours which helped to keep hives from spre ading. On Sunday hives continued and patient continues to continue to give him Benadryl for pain that it is going to go away. Patient did not have at that time any nausea vomiting diarrhea throat swelling or shortness of breath. On Sunday situation continued and on Sunday patient was about to go to his work when he noticed when his that now he has again widespread hives noticed and they were now in around his face and mouth. That prompted her to bring patient to the emergency room immediately. Once when patient arrived to the emergency room his blood pressure was 100 oh 6/68 but then dropped to 92/54 the lowest one was 84/54. Patient was given IV Decadron 10 mg IV stat, diphenhydramine 50 mg IV stat epinephrine 0.3 mg IM.then 2 L of normal saline bolus and famotidine 20 mg IV stat. After giving IM EpiPen hives were significantly decreased and blood pressure was better maintained so in the next 1 to 1-hour patient received another epi of 3 0.3 mg IM before he was transferred to the floor at PCU on telemetry for observation. Labs were reviewed and white blood cell count is 7.4 hemoglobin 14.7 hematocrit 39.9 platelets 194, INR 1.3 PT 12.8, sodium 127 potassium 3.8 chloride 93 BUN 14 GFR 85 creatinine 1.11, troponin 0 0.015. Chest x-ray pending. Decision was made to admit patient to PCU on telemetry Principal Diagnosis Anaphylaxis, drug reaction Discharge Exam Constitutional WD/WN, vitals as above Eyes PERRL, conjunctivae normal, anicteric sclerae ENMT external ear and nose normal, oropharynx normal Neck trachea midline, no thyromegaly Respiratory normal respiratory effort, lungs clear to auscultation Cardiovascular RRR, no murmur, no edema Gastrointestinal (Abdomen) normal bowel sounds, soft, nontender, no hepatosplenomegaly Musculoskeletal Extremities: extremities normal to inspection; no cyanosis and no clubbing Skin + rash (Almost completely resolved hives in the axilla, inguinal regions bilaterally, dorsal feet and lower back) Neurologic moves all extremities and awake; no focal motor deficits Psychiatric A+Ox3, euthymic affect Discharge Data Allergies Allergy/AdvReac Type Severity Reaction Status Date / Time pantoprazole Allergy Severe Verified 06/03/19 12:12 clopidogrel [From Plavix] Allergy Unknown Verified 06/03/19 12:12 Consultations Consult Allergy / Immunology Routine Ordered Studies Chest x-ray Hospital Course (1) Anaphylactic reaction: Likely secondary to drug reaction to wither Plavix or Protonix as were both recently added There was a question whether his Bystolic or metoprolol was new-patient reports he has been on Bystolic for years, and he has not yet started the metoprolol as an outpatient. Therefore, his Bystolic is not the cause of his anaphylaxis. Much improved now after IV steroids, IV pepcid, epi pen x 4 in ER, and continued IV benadryl Blood pressures have normalized and his hives are almost completely resolved, no further lip swelling or difficulty breathing -We will give steroid taper upon discharge -Continue home Zyrtec -continue p.o. Pepcid, steroids, benadryl as needed at home -Appreciate Office Secretary help tremendously-plan for follow-up as an outpatient in 3 weeks-eventually will have allergy testing -checking tryptase in blood as if high, is consistent with drug reaction-pending at the time of discharge -will send home with Epi Pen on dc -dc Plavix and convert back to baby ASA -dc Protonix and would NOT go back to any other PPIs (2) CAD (coronary artery disease), [place] coronary artery: Stable at this time. Has a h/o high coronary calcium score, had cath several years ago which showed nonobstructive CAD, is medically managed - Troponin negative, telemetry with sinus bradycardia here -currently is taking Bystolic on a one month supply but insurance would not cover and then plans to switch to Toprol XL -restart ASA 81mg daily and dc Plavix in case of reaction as above -Continue statin (3) GERD (gastroesophageal reflux disease): Continue famotidine 20 mg p.o. twice daily -dc all PPIs in case of cause of anaphylaxis (4) Hypertension: Controlled -continue beta nando as above -Can resume verapamil upon discharge as blood pressures are improved -Resume valsartan alone but will discontinue HCTZ given chronic hyponatremia -Heart healthy diet, low-sodium (5) Gout: Stable continue allopurinol 100 mg tablet p.o. twice daily (6) Drug allergy: as above (7) Asthma: extrinsic -continue albuterol inhaler prn -Continue home SINgulair (8) Hyperlipidemia: continue statin (9) Allergic rhinitis: -Continue home Flonase, Zyrtec (10) Hyponatremia: Na+ low at 127 on admission, chronically low on previous admission in 131- 133 range Could be from HCTZ Reports his sodium was much lower in the past and previously his HCTZ have been discontinued It was restarted 2 years ago by his green marketer -dc HCTZ permanently -improved now to 132 with NS and likely slightly higher once corrected for hyperglycemia -follow BMP as an outpatient in 1 week (11) Hyperglycemia: secondary to corticosteroids, blood sugars in the mid 200s -Was treated with basal bolus insulin while here This should improve after discharge once switch is to p.o. prednisone and tapers off Hemoglobin A1c mildly elevated in the prediabetic range at 5.9% -Counseled on dietary changes and weight loss to prevent progression to diabetes -Follow-up with PCP as an outpatient (12) Prediabetes: As above (13) DVT prophylaxis: Lovenox SQ was provided Dispo-stable for discharge to home Total Time Total Time Spent Total Time Spent (In Minutes): Greater than 30 minutes Total Time Includes: Examination of the Patient, Discharge Planning and Medication Reconciliation Discharge Plan Discharge Items Patient Disposition: Home - Self-Care Reason For Visit: ANAPHYLACTIC REACTION Discharge Diagnosis: Anaphylaxis, drug reaction Condition: Good Discharge Goals: Decrease discomfort, Diagnostic testing, Improve disease control, Learn about illness and Therapeutic intervention Activity: Resume your previous activity Bathing: No limitations Driving/Machine Use: No limitations Non-emergency contact: Primary Care Provider and Specialist Call non-emergency contact if: you have any medication questions and your symptoms worsen Follow-up/Referrals: Guero Gonzalez DO [Primary Care Provider] - 06/09/19 9:20 am (A follow up appt. with Dr. Gonzalez has been made for you on at 9:20am.) Clay Lopez MD [Physician] - 07/04/19 10:00 am (Please follow-up as scheduled for you in several weeks. ) Diet: Heart Healthy Diet Comment: Consider restricting some of the histamine-rich foods in your diet Addtl Provider Instructions: You were admitted for a severe anaphylactic reaction, possibly to either Protonix or Plavix. Your Plavix was stopped and replaced with a baby aspirin once daily again. Please follow-up with your primary care doctor and the green marketer to further discuss that medicine. Your Protonix was also stopped and you should not take any other proton pump inhibitors such as omeprazole, esomeprazole (Nexium), etc. Please follow-up with the student services coordinator as scheduled for you in several weeks-he will perform further allergy testing. Your sodium level was low and this may be related to your HCTZ. You will be prescribed valsartan alone to cut out the HCTZ portion of this medication. Please have your primary care doctor follow your sodium levels at your follow-up visit. All your other medications have remained the same. You will be given a prednisone taper for the allergic reaction, and can continue Benadryl as needed. You should also continue taking famotidine (Pepcid) 20 mg twice daily; this works as both an antacid and for allergic reactions. You also had high blood sugars here secondary to the steroids he received through the IV. A hemoglobin A1c test was checked which showed you do have prediabetes. You should work on eating a low carbohydrate diet and weight loss to keep you from getting full-blown diabetes. Your primary care doctor can follow-up with you on this as well. Please follow-up with your primary care doctor within 1 to 2 weeks-this will be scheduled for you. Prescriptions: New aspirin [Ecotrin Low Strength] 81 mg Tablet,Delayed Release (Dr/Ec) 81 mg PO QAM Qty: 30 RF: 0 famotidine 20 mg Tablet 20 mg PO BID Qty: 60 RF: 0 prednisone 10 mg tablet 60 mg PO DAILY Qty: 21 RF: 0 diphenhydramine HCl [Benadryl] 25 mg capsule 25 mg PO TID PRN (Reason: allergy symptoms) Qty: 30 RF: 0 valsartan 320 mg tablet 320 mg PO DAILY Qty: 30 RF: 0 epinephrine [EpiPen 2-Juan] 0.3 mg/0.3 mL auto-injector 0.3 mg IM Q3H PRN (Reason: anaphylaxis) Qty: 1 RF: 0 Continued omega-3 fatty acids [Fish Oil Concentrate] 1,000 mg capsule 1,000 mg PO DAILY RF: 0 albuterol sulfate [ProAir HFA] 90 mcg/actuation HFA aerosol inhaler 2 puff INHALATION Q4H PRN (Reason: Shortness Of Breath Or Wheezing) RF: 0 cetirizine [Zyrtec] 10 mg tablet 10 mg PO QAM RF: 0 fluticasone propionate [Flonase Allergy Relief] 50 mcg/actuation spray,suspension 1 spray INTRANASAL BID RF: 0 naproxen 500 mg tablet 500 mg PO BID PRN (Reason: Pain) RF: 0 Shingrix (PF) 50 mcg/0.5 mL suspension for reconstitution 0.5 ml IM .COMPLEX Qty: 1 RF: 1 montelukast 10 mg tablet 10 mg PO HS Qty: 90 RF: 3 rosuvastatin 20 mg tablet 20 mg PO HS Qty: 90 RF: 3 allopurinol 100 mg tablet 100 mg PO BID Qty: 180 RF: 3 verapamil 120 mg tablet 120 mg PO BID Qty: 180 RF: 3 Bystolic 5 mg tablet 5 mg PO HS RF: 0 Discontinued pantoprazole 20 mg tablet,delayed release (DR/EC) 20 mg PO DAILY Qty: 90 RF: 3 valsartan-hydrochlorothiazide 320-25 mg tablet 1 tab PO QAM Qty: 90 RF: 3 clopidogrel [Plavix] 75 mg tablet 75 mg PO DAILY Qty: 90 RF: 1 metoprolol succinate 25 mg tablet extended release 24 hr 25 mg PO HS RF: 0 Stand-Alone Forms: [facility] [place] Discharge Orders: Discharge Order (Routine); Ordered 06/04/19 Ordered By: Reva Fleming Admission Data Admit Date/Time: 06/02/19 13:05 Attending Provider: Reva Fleming Admit Provider: Duyen Weber Primary Care Provider: Guero Gonzalez Other Providers: MehulicDuyen Faoud Service: Telemetry Other Pending Studies at Discharge: Yes (tryptase)
[2019-06-04] MEDS ORDERED: FAMOTIDINE 20 MG TAB PO SCH (21:00)
== END 2019-06-04 12:11 | disposition home or self-care (01) ==
LOC: 2S 08:05 → ED 08:05 → SUATTDRO 13:05 → 2S 14:06

== ENCOUNTER 2019-06-05 20:27 | Inpatient (IN) ==
[2019-06-05 21:48] LABS: Hematocrit (blood only) 39.7 % (42-52); Hemoglobin 14.1 g/dL (14.0-18.0); Immature Granulocytes # (auto) 0.03 K/uL (0.00-0.02); Immature Granulocytes % (auto) 0.4 %; Lymphocytes # (auto) 0.75 K/uL (1.2-3.4); Lymphocytes % (auto) 10.9 %; Mean Corpuscular Hgb Conc 35.5 g/dL (32-36); Mean Corpuscular Volume 89.8 fL (80-100); Mean Platelet Volume 9.9 fL (7.4-10.4); Monocytes # (auto) 0.41 K/uL (0.11-0.59); Neutrophils # (auto) 5.67 K/uL (1.4-6.5); Neutrophils % (auto) 82.7 %; Platelet Count 282 K/uL (130-400); RDW Coefficient of Variation 13.3 % (11.5-14.5); RDW Standard Deviation 43.8 fL (36.4-46.3); Red Blood Count 4.42 M/uL (4.7-6.1); White Blood Count 6.86 K/uL (4.8-10.8)
[2019-06-05 21:59] LABS: Appearance Urine Clear (Clear); Bilirubin Urine Negative (Negative); Blood Urine Negative (Negative); Color Urine Yellow; Glucose Urine UA Negative (Negative); Ketones Urine Negative (Negative); Leukocyte Esterase Urine Negative (Negative); Nitrite Urine Negative (Negative); Protein Urine Negative (Negative); Specific Gravity Urine 1.007 (1.000-1.030); Urobilinogen Urine Negative (Negative); pH Urine 7.5 (4.5-7.5)
[2019-06-05 22:01] LABS: Alanine Aminotransferase 189 U/L (12-78); Aspartate Aminotransferase 96 U/L (15-37); BUN Creatinine Ratio 14.5 (10-20); Blood Urea Nitrogen 14 mg/dl (7-18); Calcium 9.2 mg/dl (8.5-10.1); Carbon Dioxide 26 mmol/L (21-32); Chloride 99 mmol/L (98-107); Creatinine Clr Calc Pharmacy 97.2 ml/min; Est GFR (African American) 97.6; Est GFR (Non-African American) 84.2; Glucose 170 mg/dl (70-99); Magnesium 2.5 mg/dl (1.8-2.4); Potassium 4.2 mmol/L (3.5-5.1); Sodium 133 mmol/L (136-145)
--- NOTE | 2019-06-05 22:03 | XRay Report ---
XR chest 1V portable CLINICAL HISTORY: Dyspnea COMPARISON STUDY: 06/02/2019 FINDINGS: The heart is borderline enlarged. There is stable interstitial thickening. There is no loba r consolidation. Increased markings at the level of the left cardiophrenic angle remain unchanged and likely are atelectatic.[ IMPRESSION: Stable findings. No evidence of acute parenchymal consolidation. Stable mild interstitial thickening. Electronically signed by: Montez Suggs M.D. 06/05/2019 10:02 PM
[2019-06-05 22:06] LABS: Albumin Globulin Ratio 1.2 (0.9-2); Alkaline Phosphatase 49 U/L (45-117); Bilirubin,Total 0.4 mg/dl (0.2-1); Globulin 3.2 gm/dl (2.5-4.0); NT Pro B Type Natriuretic Pept 1537 pg/ml (0-900); Total Protein 7.2 gm/dl (6.4-8.2); Troponin I < 0.015 ng/ml (0-0.045)
[2019-06-05 22:13] LABS: INR 1.2 (0.9-1.1); Partial Thromboplastin Ratio 0.9; Partial Thromboplastin Time 23.6 Seconds (21.0-31.0); Prothrombin Time 11.7 Seconds (9.0-12.0)
[2019-06-05 22:15] LABS: D Dimer 2250 ug/L FEU (0-500)
[2019-06-05] MEDS ORDERED: OPTIRAY 320 125ml IV PRN (22:42)
--- NOTE | 2019-06-05 22:52 | CT Scan Report ---
CT ANGIOGRAM OF THE CHEST CLINICAL HISTORY: Shortness of breath. Suspected pulmonary wasn't. COMPARISON STUDY: No previous studies for comparison. TECHNIQUE: Following the IV administration of mL of Optiray-320, CT angiogram of the thorax was perfo rmed from the thoracic inlet to the lung bases utilizing the pulmonary embolus protocol. Images are r eviewed in the axial, sagittal, and coronal planes. IV contrast was administered without complication . MIP imaging was performed. A dose lowering technique was utilized adhering to the principles of [place]. CT DOSE: 465.94 mGy.cm FINDINGS: No pathologically enlarged axillary mediastinal or hilar lymph nodes were visualized. The ascending thoracic aorta measures 37 mm. There are coronary artery calcifications. There is suboptimal lower lobe arterial opacification. There are equivocal linear filling defects wit hin lower lobe pulmonary artery branches. Small chronic emboli cannot be excluded. There are no defin ite acute emboli identified There is a small right pleural effusion and trace left pleural effusion. There are dependent airspace opacities, statistically atelectatic. IMPRESSION: 1. No central emboli identified. Suboptimal lower lobe pulmonary artery opacification with equivocal linear pulmonary artery defects. Chronic emboli cannot be excluded 2. Mild cardiomegaly and coronary artery calcifications 3. Small right pleural effusion trace left pleural effusion 4. Dependent airspace opacities likely atelectatic Electronically signed by: Montez Suggs M.D. 06/05/2019 10:51 PM
[2019-06-05] MEDS ORDERED: FUROSEMIDE 20 MG in SYRINGE 0 ML IV ONE (23:50)
[2019-06-06] MEDS ORDERED: FUROSEMIDE 40 MG/4 ML VIAL IV ONE (00:09)
--- NOTE | 2019-06-06 00:58 | Emergency Department Note ---
Entered by Reinier Perez acting as a scribe for ED Provider Note CHIEF COMPLAINT: Low heart weight and weight gain HISTORY OF PRESENT ILLNESS: The patient is a 59 year old male who presents to the Emergency Room with complaints of a low heart rate and weight gain occurring today. The patient states he started to get hives on Sunday and it continued to get worse till Sunday when he came to the ED. He states his eyes and lips were swollen on Sunday. He states he had epinephrine 4 times on Sunday. He notes he was admitted to the hospital and went home yesterday. He notes he took prednisone this morning and took Benadryl tonight. The patient's notes the patient was pale today and his voice was hoarse. She states the patient was lightheaded earlier and has been urinating more frequently. She states the patient's legs are s wollen. S he took his pulse and noted it was in the low 40s. She noted this was very unusual for him. He notes the patient was taken off of diuretics yesterday because his sodium level was low. The patient notes he was in the ED two weeks ago for a suspected TIA. Pt denies LOC, headache, fevers, chills, diaphoresis, visual changes, neck pain, chest pain, nausea, vomiting, abdominal pain, back p ain, melena, hematochezia, numbness, weakness, lymphadenopathy, or other complaints. He notes his PCP is Dr. Gonzalez. REVIEW OF SYSTEMS: See HPI for pertinent positives and negatives. A total of ten systems were reviewed and were otherwise negative. PMHx/PSHx: CAD, GERD, hyperlipidemia, HTN, asthma SOCIAL HISTORY: Patient lives at home. PHYSICAL EXAM: GENERAL: Awake, alert, tired-appearing, in no distress HENT: Normocephalic, atraumatic. Oropharynx unremarkable. EYES: PERRL. Normal conjunctiva. Sclera non-icteric. NECK: Inspection normal. Non-tender. Supple. No nuchal rigidity. FROM. No masses. RESPIRATORY: Clear to auscultation. No wheezes. No rales. Normal respiratory effort. CARDIAC: Bradycardic rate. Normal rhythm. No murmurs. No rubs. Extremities warm and well perfused. Pulses equal. No JVD. GI: Soft, non-distended. No tenderness to palpation. No rebound or guarding. No masses. RECTAL: Deferred. MUSCULOSKELETAL: Atraumatic. Chest examination reveals no tenderness. The back is symmetrical on inspection without obvious abnormality. There is no CVA tenderness to palpation. No joint edema. LOWER EXTREMITIES: Calves are equal size bilaterally and non-tender. No discoloration. 1+ pitting edema. NEURO: Normal sensorium. No sensory or motor deficits noted. SKIN: No rash or jaundice noted. EMERGENCY DEPARTMENT COURSE: 2134: Past medical records reviewed. The patient was evaluated in room C9, and a complete history and physical examination were performed. 2214: I reevaluated the patient. I told the patient about his elevated D-Dimer. 2353: I updated the patient on his labs and imaging results. He agreed to be admitted. 001: I discussed the patient's case with Dr. Dickerson - [facility]ist. He will evaluate the patient for further management MEDICAL DECISION MAKING: C9 Prior records/ancillary studies reviewed. Patient was admitted to the hospital and treated his allergic reaction. The patient appears to have gained at least 13 pounds. Triage Nursing notes reviewed and agree them. Additional history obtained from the family. The patient's history was concerning for lightheadedness, bradycardia, leg swelling, and shortness of breath. Differential diagnosis: Etiologies such as pneumonia, COPD, reactive airway disease, CHF, cardiac ischemia, somatic bradycardia, pulmonary embolism, pneumothorax, musculoskel etal, infections, gastrointestinal, DVT, as well as others were entertained. Physical examination: As above. Legs are swollen. The patient was bradycardic. ER treatment provided: Observation IV Lasix On reassessment the patient felt better. Diagnostic interpretation by me: The electrocardiogram was negative for ischemic change. Cardiac monitoring: The patient was placed on continuous cardiac monitoring and observed. It revealed a normal sinus rhythm without ectopy or evidence of dysrhythmia. The labs revealed an unremarkable CBC. Chemistry panel showed mild hyponatremia with normal renal function. Patient's BNP is moderately elevated. Troponin negative. D-dimer markedly elevated. Imaging studies: Chest x-ray is negative for any acute disease. CT PE study was performed. This was slightly degraded by suboptimal contrast bolus. Radiology questioned small possible chronic appearing pulmonary emboli. There was no DVT found on ultrasound imaging. The patient has significant bradycardia. He is lightheaded and dizzy somewhat short of breath and has volume overload. I discussed further management in the hospital and the patient and were in agreement. Consultation: A consultation was placed with the [facility] hospitalist. The case was discussed and diagnostics were reviewed. The patient was evaluated in the ER for further treatment. IMPRESSION: Symptomatic bradycardia, SOB, peripheral edema, elevated D-Dimer, possible pulmonary emboli PLAN: Admitted The scribe's documentation has been prepared under my direction and personally reviewed by me in its entirety. I confirm that the note above accurately reflects all work, treatment, procedures, and medical decision making performed by me. Impression & Plan Symptomatic bradycardia, SOB (shortness of breath), Edema, peripheral, Elevated d-dimer Past Med/Surg History Medical History Asthma (Chronic) CAD (coronary artery disease), [place] coronary artery (Chronic) GERD (gastroesophageal reflux disease) (Chronic) Hyperlipidemia (Chronic) Hypertension (Chronic) Allergic rhinitis Surgical History H/O right heart catheterization [place] teeth removed Family History Father Myocardial infarction Heart disease Mother Parkinson disease Social History Preferred Language: Maldivian Communication Ability: Effective Visual Impairment: No Limitations Hearing Ability: Normal Computerized [employer] Required: No Beliefs That Will Affect Care: None marital status: Current Living Situation: Spouse current occupational status: employed current occupation: [employer] the [employer] at [employer] Feels Safe at Home: Yes Smoking Status: Never smoker Second Hand Exposure: No ; Hx Alcohol Use: Yes Alcohol type: beer and wine Alcohol Intake Frequency: Weekly Alcohol Intake Frequency Comment: One or 2 beers per week at most. Hx Substance Use: No Childhood Exposure to Second-Hand Smoke: No Dental Care, Regularly: Yes Physical Activity Frequency: 1-2 Times per Week Seatbelt Use: always Results & Data Vital Signs Vital Signs - 24 hr 06/05/19 20:28 06/05/19 21:18 06/05/19 21:27 Temperature 36.3 C L Temperature Source Oral Sepsis Recent Fever Within 48 Hours No Sepsis Action Taken by Nursing No Action Required Pulse Rate 44 L Pulse Rate [Left Radial] Respiratory Rate 20 Respiratory Effort / Characteristics Non-Labored Spontaneous Respiratory Depth Normal Respiratory Pattern Regular Blood Pressure 171/100 H Blood Pressure [Right Arm] Blood Pressure Mean 123 Blood Pressure Mean [Right Arm] Pulse Oximetry 100 96 96 Oxygen Delivery Method Room Air Room Air 06/05/19 23:44 Temperature Temperature Source Sepsis Recent Fever Within 48 Hours Sepsis Action Taken by Nursing Pulse Rate Pulse Rate [Left Radial] 45 L Respiratory Rate 16 Respiratory Effort / Characteristics Respiratory Depth Respiratory Pattern Blood Pressure Blood Pressure [Right Arm] 160/91 H Blood Pressure Mean Blood Pressure Mean [Right Arm] 114 Pulse Oximetry 95 Oxygen Delivery Method Room Air Home Medications Current Medication List: was personally reviewed by me Laboratory Data Attestation: I reviewed the patient's lab results. Result diagrams: 06/05/19 21:23 06/05/19 21:23 Lab Results 06/05/19 06/05/19 06/05/19 Range/Units 21:23 21:23 21:23 WBC 6.86 (4.8-10.8) K/uL RBC 4.42 L (4.7-6.1) M/uL Hgb 14.1 (14.0-18.0) g/dL Hct 39.7 L (42-52) % MCV 89.8 (80-100) fL MCH 31.9 (25-34) pg MCHC 35.5 (32-36) g/dL RDW Std Deviation 43.8 (36.4-46.3) fL RDW Coeff of Nafisa 13.3 (11.5-14.5) % Plt Count 282 (130-400) K/uL MPV 9.9 (7.4-10.4) fL Immature Gran % (Auto) 0.4 % Neut % (Auto) 82.7 % Lymph % (Auto) 10.9 % Town[place] % (Auto) 6.0 % Eos % (Auto) 0.0 % Baso % (Auto) 0.0 % Immature Gran # (Auto) 0.03 H (0.00-0.02) K/uL Neut # (Auto) 5.67 (1.4-6.5) K/uL Lymph # (Auto) 0.75 L (1.2-3.4) K/uL Towner # (Auto) 0.41 (0.11-0.59) K/uL Eos # (Auto) 0.00 (0-0.5) K/uL Baso # (Auto) 0.00 (0-0.2) K/uL PT 11.7 (9.0-12.0) Seconds INR 1.2 H (0.9-1.1) APTT 23.6 (21.0-31.0) Seconds PTT Ratio 0.9 D-Dimer 2250 H* (0-500) ug/L FEU Sodium 133 L (136-145) mmol/L Potassium 4.2 (3.5-5.1) mmol/L Chloride 99 (98-107) mmol/L Carbon Dioxide 26 (21-32) mmol/L Anion Gap 8.0 (3-11) BUN 14 (7-18) mg/dl Creatinine 0.99 (0.6-1.4) mg/dl Est Cr Clr Drug Dosing 97.2 ml/min Est GFR ( Amer) 97.6 Est GFR (Non-Af Amer) 84.2 BUN/Creatinine Ratio 14.5 (10-20) Glucose 170 H (70-99) mg/dl Calcium 9.2 (8.5-10.1) mg/dl Magnesium 2.5 H (1.8-2.4) mg/dl Total Bilirubin 0.4 (0.2-1) mg/dl AST 96 H (15-37) U/L ALT 189 H (12-78) U/L Alkaline Phosphatase 49 (45-117) U/L Troponin I < 0.015 (0-0.045) ng/ml NT-Pro-B Natriuret Pep 1537 H (0-900) pg/ml Total Protein 7.2 D (6.4-8.2) gm/dl Albumin 4.0 (3.4-5.0) gm/dl Globulin 3.2 (2.5-4.0) gm/dl Albumin/Globulin Ratio 1.2 (0.9-2) Urine Color Urine Appearance (Clear) Urine pH (4.5-7.5) Ur Specific [place] (1.000-1.030) Urine Protein (Negative) Urine Glucose (UA) (Negative) Urine Ketones (Negative) Urine Blood (Negative) Urine Nitrite (Negative) Urine Bilirubin (Negative) Urine Urobilinogen (Negative) Ur Leukocyte Esterase (Negative) 06/05/19 Range/Units 21:23 WBC (4.8-10.8) K/uL RBC (4.7-6.1) M/uL Hgb (14.0-18.0) g/dL Hct (42-52) % MCV (80-100) fL MCH (25-34) pg MCHC (32-36) g/dL RDW Std Deviation (36.4-46.3) fL RDW Coeff of Nafisa (11.5-14.5) % Plt Count (130-400) K/uL MPV (7.4-10.4) fL Immature Gran % (Auto) % Neut % (Auto) % Lymph % (Auto) % Towner % (Auto) % Eos % (Auto) % Baso % (Auto) % Immature Gran # (Auto) (0.00-0.02) K/uL Neut # (Auto) (1.4-6.5) K/uL Lymph # (Auto) (1.2-3.4) K/uL [place]er # (Auto) (0.11-0.59) K/uL Eos # (Auto) (0-0.5) K/uL Baso # (Auto) (0-0.2) K/uL PT (9.0-12.0) Seconds INR (0.9-1.1) APTT (21.0-31.0) Seconds PTT Ratio D-Dimer (0-500) ug/L FEU Sodium (136-145) mmol/L Potassium (3.5-5.1) mmol/L Chloride (98-107) mmol/L Carbon Dioxide (21-32) mmol/L Anion Gap (3-11) BUN (7-18) mg/dl Creatinine (0.6-1.4) mg/dl Est Cr Clr Drug Dosing ml/min Est GFR ( Amer) Est GFR (Non-Af Amer) BUN/Creatinine Ratio (10-20) Glucose (70-99) mg/dl Calcium (8.5-10.1) mg/dl Magnesium (1.8-2.4) mg/dl Total Bilirubin (0.2-1) mg/dl AST (15-37) U/L ALT (12-78) U/L Alkaline Phosphatase (45-117) U/L Troponin I (0-0.045) ng/ml NT-Pro-B Natriuret Pep (0-900) pg/ml Total Protein (6.4-8.2) gm/dl Albumin (3.4-5.0) gm/dl Globulin (2.5-4.0) gm/dl Albumin/Globulin Ratio (0.9-2) Urine Color Yellow Urine Appearance Clear (Clear) Urine pH 7.5 (4.5-7.5) Ur Specific [place] 1.007 (1.000-1.030) Urine Protein Negative (Negative) Urine Glucose (UA) Negative (Negative) Urine Ketones Negative (Negative) Urine Blood Negative (Negative) Urine Nitrite Negative (Negative) Urine Bilirubin Negative (Negative) Urine Urobilinogen Negative (Negative) Ur Leukocyte Esterase Negative (Negative) Administered Medications Ioversol (Optiray 320 125ml) 125 ml IV ONCE PRN PRN Reason: Interaction Checking Stop: 06/09/19 22:41 Last Admin: 06/05/19 22:42 Dose: 89 ml Documented by: [id number] Discontinued Medications Furosemide (Lasix) Confirm Administered Dose 40 mg IV .STK-MED ONE Stop: 06/06/19 00:10 Last Admin: 06/06/19 00:11 Dose: 20 mg Documented by: [id number] Furosemide 20 mg/ Syringe 2 mls @ 4 mls/min IV ONE ONE Stop: 06/05/19 23:51 Last Admin: 06/06/19 00:11 Dose: Not Given Documented by: [id number] Imaging Data Radiologist's Impression: Radiology results as stated below per my review and the radiologist's interpretation: XR chest 1V portable CLINICAL HISTORY: Dyspnea COMPARISON STUDY: 06/02/2019 FINDINGS: The heart is borderline enlarged. There is stable interstitial thickening. There is no lobar consolidation. Increased markings at the level of the left cardiophrenic angle remain unchanged and likely are atelectatic. IMPRESSION: Stable findings. No evidence of acute parenchymal consolidation. Stable mild interstitial thickening. Electronically signed by: Montez Suggs M.D. 06/05/2019 10:[address] ANGIOGRAM OF THE CHEST CLINICAL HISTORY: Shortness of breath. Suspected pulmonary wasn't. COMPARISON STUDY: No previous studies for comparison. TECHNIQUE: Following the IV administration of mL of Optiray-320, CT angiogram of the thorax was performed from the thoracic inlet to the lung bases utilizing the pulmonary embolus protocol. Images are reviewed in the axial, sagittal, and coronal planes. IV contrast was administered without complication. MIP imaging was performed. A dose lowering technique was utilized adhering to the principles of ALARA. CT DOSE: 465.94 mGy.cm FINDINGS: No pathologically enlarged axillary mediastinal or hilar lymph nodes were visualized. The ascending thoracic aorta measures 37 mm. There are coronary artery calcifications. There is suboptimal lower lobe arterial opacification. There are equivocal linear filling defects within lower lobe pulmonary artery branches. Small chronic emboli cannot be excluded. There are no definite acute emboli identified There is a small right pleural effusion and trace left pleural effusion. There are dependent airspace opacities, statistically atelectatic. IMPRESSION: 1. No central emboli identified. Suboptimal lower lobe pulmonary artery opacification with equivocal linear pulmonary artery defects. Chronic emboli cannot be excluded 2. Mild cardiomegaly and coronary artery calcifications 3. Small right pleural effusion trace left pleural effusion 4. Dependent airspace opacities likely atelectatic Electronically signed by: Montez Suggs M.D. 06/05/2019 10:51 PM US VENOUS BILATERAL LOWER EXTREMITIES: No DVT. No mass or adenopathy. Radiologist: Jeremías Lutz MD Study ready at 23:24 and initial results transmitted at 23:45 ECG Data Attestation: I personally reviewed and interpreted this ECG as follows: Indication: SOB/dyspnea Rate (beats per minute): 47 Rhythm: sinus bradycardia Findings: no PAC, no PVC, no ST depression and no ST elevation Blood Pressure Blood Pressure Findings: Elevated blood pressure Blood Pressure Disposition: further management by hospitalist Discharge Plan Visit Data Chief Complaint: Shortness of Breath/Dyspnea Stated Complaint: SOB, EDEMA, BRADYCARDIA ED Provider: Homar Lund Discharge Problem: Symptomatic bradycardia, SOB (shortness of breath), Edema, peripheral, Elevated d-dimer Patient Disposition: Being Evaluated by Hospitalist Forms Stand Alone Forms: My [employer] Prescriptions Prescriptions: No Action omega-3 fatty acids [Fish Oil Concentrate] 1,000 mg capsule 1,000 mg PO DAILY RF: 0 albuterol sulfate [ProAir HFA] 90 mcg/actuation HFA aerosol inhaler 2 puff INHALATION Q4H PRN (Reason: Shortness Of Breath Or Wheezing) RF: 0 cetirizine [Zyrtec] 10 mg tablet 10 mg PO QAM RF: 0 fluticasone propionate [Flonase Allergy Relief] 50 mcg/actuation spray,suspension 1 spray INTRANASAL BID RF: 0 naproxen 500 mg tablet 500 mg PO BID PRN (Reason: Pain) RF: 0 Shingrix (PF) 50 mcg/0.5 mL suspension for reconstitution 0.5 ml IM .COMPLEX Qty: 1 RF: 1 montelukast 10 mg tablet 10 mg PO HS Qty: 90 RF: 3 rosuvastatin 20 mg tablet 20 mg PO HS Qty: 90 RF: 3 allopurinol 100 mg tablet 100 mg PO BID Qty: 180 RF: 3 verapamil 120 mg tablet 120 mg PO BID Qty: 180 RF: 3 Bystolic 5 mg tablet 5 mg PO HS RF: 0 aspirin [Ecotrin Low Strength] 81 mg Tablet,Delayed Release (Dr/Ec) 81 mg PO QAM Qty: 30 RF: 0 famotidine 20 mg Tablet 20 mg PO BID Qty: 60 RF: 0 prednisone 10 mg tablet 60 mg PO DAILY Qty: 21 RF: 0 diphenhydramine HCl [Benadryl] 25 mg capsule 25 mg PO TID PRN (Reason: allergy symptoms) Qty: 30 RF: 0 valsartan 320 mg tablet 320 mg PO DAILY Qty: 30 RF: 0 epinephrine [EpiPen 2-Juan] 0.3 mg/0.3 mL auto-injector 0.3 mg IM Q3H PRN (Reason: anaphylaxis) Qty: 1 RF: 0 Referrals Referrals: Guero Gonzalez DO [Primary Care Provider] - The scribe's documentation has been prepared under my direction and personally reviewed by me in its entirety. I confirm that the note above accurately reflects all work, treatment, procedures, and medical decision making performed by me.
[2019-06-06] MEDS ORDERED: ONDANSETRON INJ 2 MG/ML 2 ML VIAL IV PRN (01:37)
[2019-06-06] MEDS ORDERED: ACETAMINOPHEN 325 MG TAB PO PRN (01:37)
--- NOTE | 2019-06-06 01:46 | History & Physical Report ---
Date of Service June 06, 2019 Assessment & Plan (1) Symptomatic bradycardia: Patient is in the hospital for the 3rd time within past month. Currently patient is asymptomatic at rest and is hemodynamically stable. Will admit patient to PCU for close cardiac monitoring. With this new admission coming to light, I begin to question his diagnosis of a TIA. Perhaps his symptoms of lightheadedness came from his symptomatic bradycardia. Patient also has 1st AV node block. Patient is on medicine that can lower HR which include verapamil, and bystolic. Will hold these medicines for the time being and monitor his Blood pressure and heart rate. Will also check for an infection and check for hypothyroidism. Also ordered inflammatory markers. I anticipate the HR to improve with the BB and verapamil off. If hypothyroidism is ruled out, and procalcitonin is normal. And HR remains low despite holding a CCB and BB. Then patient may need a pacemaker. Will consult cardiology. Patient has also been worked up for lyme disease recently and this was negative. (2) Elevated d-dimer: D-DIMER was elevated, however his clinical picture does not appear to be of that someone with a pulmonary emboli. Patient is not having hypoxia, tachycardia, pleuritic chest pain. CTA of chest was negative BUT CANNOT RULE OUT CHRONIC EMBOLI. Patient has history of PFO. At this point of time, I do not recommend repeating a ct scan. (3) Edema, peripheral: Patient is admitted with lower extremity edema and some rales at the bases of the lung. Perhaps his low HR is contributing to this. Patient ordered lasix, and his lower extremity edema and scrotal edema appear to be improving. (4) Gout: stable -continue home allopurinol (5) Anaphylactic reaction: recent admission 2 days ago for anaphylaxis thought to be secondary to possibly Protonix, Plaivx, or wheat beer. -was treated with Epi pen, IV and then po steroids, pepcid, Zyrtec, and Benadryl -resolved -finish out prednisone taper down by 10mg each day until done--> 40mg for tomorrow -continue pepcid 20mg bid, Zyrtec 10mg daily -has scheduled f/u with [employer] in a few weeks -tryptase level pending from previous (6) Hyponatremia: -continue to follow BMP (7) Prediabetes: last admission found to have very mildly elevated HgbA1C -counseled previously on dietary changes and weight loss (8) CAD (coronary artery disease), [place] coronary artery: h/o high calcium score on CTA Coronaries and had subsequent cath showing 40% lesion LAD and another vessel with mod, nonobstructive disease -continue medical management with ASA, statin (9) GERD (gastroesophageal reflux disease): long-standing, has frequent breakthrough symptoms -continue pepcid bid -PPIs ALL DISCONTINUED previously in case of cause of anaphylaxis (10) Hyperlipidemia: continue statin (11) Hypertension: BP has required 4 meds in the past to control. Verapamil and Bystolic now stopped as above -continue valsartan -make lasix 20mg po daily standing dose -consider adding on amlodipine if BPs remain elevated -could also consider hytrin, hydralazine (12) Allergic rhinitis: -continue Zyrtec, FLonase DVT prophylaxis: Lovenox SQ History of Present Illness Primary Care Provider: Guero Gonzalez, DO This is a pleasant 59 yo male who returns to the hospital with complaints of lightheadedness. This occurred earlier today. Patient was not doing any strenous activities at this time. However he was ambulating and felt lightheaded. He denies any dizziness. This improved when he sat down. However, his checked his BP and HR and noticed his HR was extremely low. Normally he has HR in the mid 60s, but this was in the 40s. She states that his HR was in the 50s in the past hospital stay. She is concerned that this is becoming a pattern and is worried that something is being missed. Giving that his symptoms were similar to the time he had his TIA. And he did not have any focal weakness now nor that previous admission, she wonders if it was not a TIA but a bradycardic spell. In regards to his medicine, the patient reports no changes to his BB and CCB dose. Allergies Allergy/AdvReac Type Severity Reaction Status Date / Time clopidogrel [From Plavix] Allergy Severe Anaphylaxis Verified 06/10/19 14:18 pantoprazole Allergy Severe Unknown Verified 06/10/19 14:18 duloxetine [From Cymbalta] AdvReac Mild Verified 06/10/19 14:38 Home Medications Home Medications Medication Instructions Recorded Confirmed Type albuterol sulfate HFA 90 2 puff INHALATION Q4H PRN 05/22/19 06/10/19 History mcg/actuation aerosol inhaler allopurinol 100 mg tablet 100 mg PO BID #180 tab 05/22/19 06/10/19 Rx cetirizine 10 mg tablet 10 mg PO QAM 05/22/19 06/10/19 History fluticasone propionate 50 1 spray INTRANASAL BID 05/22/19 06/10/19 History mcg/actuation nasal spray,suspension montelukast 10 mg tablet 10 mg PO HS #90 tab 05/22/19 06/10/19 Rx naproxen 500 mg tablet 500 mg PO BID PRN 05/22/19 06/10/19 History omega-3 fatty acids 1,000 mg 1,000 mg PO DAILY 05/22/19 06/10/19 History capsule rosuvastatin 20 mg tablet 20 mg PO HS #90 tab 05/22/19 06/10/19 Rx varicella-zoster glycoE [id number] 0.5 ml IM .COMPLEX #1 ea 05/22/19 06/05/19 Rx adj(PF) 50 mcg/0.5 mL IM susp, kit aspirin [Ecotrin Low Strength] 81 mg PO QAM #30 tab 06/04/19 06/10/19 Rx diphenhydramine HCl [Benadryl] 25 mg PO TID PRN #30 cap 06/04/19 06/10/19 Rx epinephrine [EpiPen 2-Juan] 0.3 mg IM Q3H PRN #1 ea 06/04/19 06/10/19 Rx famotidine 20 mg PO BID #60 tab 06/04/19 06/10/19 Rx valsartan 320 mg PO DAILY #30 tab 06/04/19 06/10/19 Rx escitalopram 5 mg tablet 5 mg PO DAILY #90 tab 06/10/19 06/10/19 Rx furosemide 20 mg tablet 20 mg PO QAM tab 06/10/19 History Past Med/Surg History Medical History Asthma (Chronic) CAD (coronary artery disease), [place] coronary artery (Chronic) GERD (gastroesophageal reflux disease) (Chronic) Hyperlipidemia (Chronic) Hypertension (Chronic) Allergic rhinitis Patent foramen ovale Surgical History H/O right heart catheterization [place] teeth removed Family History Father Myocardial infarction Heart disease Mother Parkinson disease Social History Preferred Language: Lib[place] Communication Ability: Effective Visual Impairment: No Limitations Hearing Ability: Normal Production Counter Required: No Beliefs That Will Affect Care: None marital status: Current Living Situation: Spouse current occupational status: employed current occupation: [employer] the [employer] at [employer] Feels Safe at Home: Yes Smoking Status: Never smoker Second Hand Exposure: No ; Hx Alcohol Use: Yes Alcohol type: beer and wine Alcohol Intake Frequency: Weekly Alcohol Intake Frequency Comment: One or 2 beers per week at most. Hx Substance Use: No Childhood Exposure to Second-Hand Smoke: No Dental Care, Regularly: Yes Physical Activity Frequency: 1-2 Times per Week Seatbelt Use: always Review of Systems Review of Systems: All systems reviewed & are unremarkable except as noted in HPI & below Physical Exam Constitutional: WD/WN, vitals as above well developed and well nourished ENMT: external ear and nose normal, oropharynx normal Neck: trachea midline, no thyromegaly Respiratory: normal respiratory effort, lungs clear to auscultation (except for bibasilar rales) Cardiovascular: Rate/Rhythm: regular rhythm and + bradycardic Heart Sounds: normal S1 and normal S2 Gastrointestinal (Abdomen): normal bowel sounds, soft, nontender, no hepatosplenomegaly Musculoskeletal: Head/Neck/Chest: + head abnormal to inspection, normocephalic and head atraumatic Skin: no rashes, warm and dry Neurologic: awake (follows commands and moves all 4 extremities) Psychiatric: A+Ox3, euthymic affect Lymphatic: no cervical or axillary lymphadenopathy Results & Data Vital Signs (Past 12 Hours) Vital Signs Temp Pulse Pulse Resp BP BP Pulse Ox 06/06/19 01:38 38 L 16 156/94 H 97 06/05/19 23:44 45 L 16 160/91 H 95 06/05/19 21:27 96 06/05/19 21:18 96 06/05/19 20:28 36.3 C L 44 L 20 171/100 H 100 PG Care Time/CCT Total # of Minutes Spent Total Time Spent with Patient: Total time spent is greater than 50% in coordination of care (as documented) at patient's floor/unit and/or counseling patient:
[2019-06-06 02:03] LABS: C Reactive Protein 1.47 mg/dl (0-0.29); T4 Free Thyroxine 0.96 ng/dl (0.8-1.6)
[2019-06-06] MEDS ORDERED: ALBUTEROL HFA 8 GM INHALER INH PRN (03:10)
[2019-06-06] MEDS ORDERED: EPINEPHRINE ADULT AUTO-INJECT 0.3 MG SYR IM PRN (03:10)
[2019-06-06] MEDS ORDERED: EPINEPHRINE IV PRN ×2 (06:35→06:36)
[2019-06-06] MEDS ORDERED: EPINEPHRINE IM PRN (06:37)
--- NOTE | 2019-06-06 07:07 | Ultrasound Report ---
ULTRASOUND BILATERAL LOWER EXTREMITY VENOUS CLINICAL HISTORY: Lower extremity edema. COMPARISON STUDY: Bilateral lower extremity venous ultrasound dated 05/17/2019. TECHNIQUE: Real-time, grayscale, and color Doppler sonography of the deep veins of the right and left lower extremity was performed from the inguinal crease to the calf. Compression and augmentation wer e utilized. FINDINGS: There is no sonographic evidence of deep venous thrombosis identified in the right or left lower extremity. The common femoral, superficial femoral, and popliteal veins are patent and normally compressible bilaterally. The greater saphenous vein and the profunda femoris vein at the junction w ith the common femoral vein are clear in both legs. The visualized calf veins are patent bilaterally. IMPRESSION: There is no sonographic evidence of deep venous thrombosis identified in the right or lef t lower extremity. Electronically signed by: Bhaskar Baum M.D. 06/06/2019 7:05 AM
[2019-06-06] MEDS: VALSARTAN 80 MG TAB PO SCH (07:59)
[2019-06-06] MEDS: ASPIRIN 81 MG ECTAB PO SCH (08:00)
[2019-06-06] MEDS: FLUTICASONE PROPIONATE NA SPR 16 GM BTL NAE SCH ×2 (08:00→21:29)
[2019-06-06] MEDS: OMEGA-3 (PURIFIED FISH OIL) 1 GM CAP PO SCH (08:01)
[2019-06-06] MEDS: FAMOTIDINE 20 MG TAB PO SCH ×2 (08:01→21:30)
[2019-06-06] MEDS: ALLOPURINOL 100 MG TAB PO SCH ×2 (08:02→21:29)
[2019-06-06] MEDS: predniSONE 10 MG TABLET PO SCH ×2 (08:02→09:09)
[2019-06-06] MEDS: CETIRIZINE HCL 10 MG TABLET PO SCH (08:02)
[2019-06-06] MEDS ORDERED: predniSONE 20 MG TAB PO SCH (09:00)
[2019-06-06] MEDS ORDERED: ASPIRIN 81 MG ECTAB PO SCH (09:00)
[2019-06-06 09:29] LABS: Eosinophils # (auto) 0.06 K/uL (0-0.5); Eosinophils % (auto) 0.8 %; Hematocrit (blood only) 37.2 % (42-52); Hemoglobin 13.5 g/dL (14.0-18.0); Immature Granulocytes # (auto) 0.02 K/uL (0.00-0.02); Immature Granulocytes % (auto) 0.3 %; Lymphocytes # (auto) 2.02 K/uL (1.2-3.4); Lymphocytes % (auto) 25.5 %; Mean Corpuscular Hgb Conc 36.3 g/dL (32-36); Mean Corpuscular Volume 88.6 fL (80-100); Mean Platelet Volume 9.2 fL (7.4-10.4); Monocytes # (auto) 0.56 K/uL (0.11-0.59); Monocytes % (auto) 7.1 %; Neutrophils # (auto) 5.26 K/uL (1.4-6.5); Neutrophils % (auto) 66.3 %; Platelet Count 262 K/uL (130-400); RDW Coefficient of Variation 13.2 % (11.5-14.5); RDW Standard Deviation 42.8 fL (36.4-46.3); White Blood Count 7.92 K/uL (4.8-10.8)
[2019-06-06 09:39] LABS: INR 1.2 (0.9-1.1); Prothrombin Time 12.3 Seconds (9.0-12.0)
[2019-06-06 09:46] LABS: Alanine Aminotransferase 141 U/L (12-78); Albumin Level 3.5 gm/dl (3.4-5.0); Aspartate Aminotransferase 40 U/L (15-37); BUN Creatinine Ratio 14.4 (10-20); Blood Urea Nitrogen 14 mg/dl (7-18); Calcium 8.9 mg/dl (8.5-10.1); Carbon Dioxide 29 mmol/L (21-32); Chloride 101 mmol/L (98-107); Creatinine Clr Calc Pharmacy 98.5 ml/min; Est GFR (African American) 102.6; Est GFR (Non-African American) 88.5; Glucose 134 mg/dl (70-99); Potassium 3.8 mmol/L (3.5-5.1); Sodium 137 mmol/L (136-145)
[2019-06-06 09:49] LABS: Alkaline Phosphatase 44 U/L (45-117); Bilirubin Direct < 0.1 mg/dl (0-0.2); Bilirubin,Total 0.3 mg/dl (0.2-1); Total Protein 6.4 gm/dl (6.4-8.2)
[2019-06-06] MEDS: ENOXAPARIN INJ 40 MG/0.4 ML SYR SQ SCH (10:11)
--- NOTE | 2019-06-06 14:29 | Cardiology Consultation ---
Date of Consultation June 06, 2019 Assessment & Plan (1) Bradycardia: Bradycardia is not likely the cause of his symptoms. With discontinuation of his Bystolic and verapamil, his heart rate has slowly improved. He appears to have appropriate chronotropic response with mild exertion in the hallway with heart rates increasing to the lower 80s. Despite this, he continued to feel fatigued and told nursing staff that he did not feel as though he could go further. There is no indication for pacemaker. Continue to hold his rate- controlling medications. (2) CAD (coronary artery disease), prairie band coronary artery: Nonobstructive CAD documented in 2017 cardiac catheterization at [facility] in [place]. Patient reports LAD 40% and another vessel with 20% stenosis. This was done secondary to elevated calcium score in dyspnea with exertion. He has not had any angina. Symptoms are not likely ischemic in origin. Continue anti-platelet. Continue high-intensity statin therapy. Beta- nando on hold due to bradycardia. (3) Hypertension: Blood pressure has been mostly elevated this hospitalization. Beta- nando and calcium channel nando have been on hold. Can continue ARB. Adjust medications as appropriate to optimize blood pressure. (4) Hyperlipidemia: Continue high-intensity statin therapy. Transaminase levels are elevated but have been normal recent hospitalizations. This could be due to recent allergic reaction verses hypervolemia. Further evaluation as per primary service. (5) SOB (shortness of breath): He did appear hypervolemic upon presentation according to records and this improved following diuretic therapy. Hopefully dyspnea with exertion improves as his volume status improves. Hypervolemia is likely iatrogenic given recent IV fluid and steroid administration. BNP did become mildly elevated in this setting as well. Given recent administration of these medications however makes this less likely heart failure and more likely iatrogenic. Can give another dose of diuretic. (6) Hypervolemia: Suspect iatrogenic hypervolemia given recent hospitalization as noted above. Volume status appears much improved. Consider another low-dose of diuretic therapy as discussed with Dr. Fleming. Disposition: I will be away from the hospital for the next [address] Valero for any questions or concerns. Patient care discussed with Dr. Fleming of the primary hospitalist service. Thank you for allowing me to participate in the care of your patient. Please call for any other questions or concerns. Sincerely, Migue Ragsdale M.D. History of Present Illness Reason for Consultation: symptomatic bradycardia Requesting Physician: Dr. Dickerson Attending Physician: Reva Fleming MD History of Present Illness Mr. Park is a pleasant 59-year-old gentleman with a history significant for hypertension, nonobstructive CAD, and dyslipidemia. Cardiology was consulted for possibility of symptomatic bradycardia. He has been hospitalized now for the third time over the past month. His first hospitalization he apparently was diagnosed with TIA. He had similar symptoms to this presentation which are described below. His second hospitalization was for hives, swollen lips, swollen eyes and he was diagnosed with allergic reaction/anaphylaxis. He was seen by Allergy and immunology. The reaction was thought to be due to Protonix or Plavix. During that hospitalization, he received significant IV fluid as per Dr. Fleming, as well as intravenous steroids in he remains on prednisone. He then was discharged on 06/04/2019 and felt well. Yesterday his voice was weak and raspy. He felt weak and pale. He walked approximately 200 yd outside and felt dyspneic upon exertion as well as pale and did not apparently appear well to his . He felt near syncopal. His blood pressure was 152/70s with heart rate of 54 bpm. Later that evening his heart rate was in the 40s. They also noted that his lower extremities were swollen all the way up to his waist including his scrotum. He apparently weight 205 lb at home last week and then weight 222 lb today. He received 20 mg of IV Lasix yesterday and his reports that he diuresed over 2 L of fluid. His edema significantly improved. He denies shortness of breath at rest, orthopnea, syncope, palpitations, chest pain, melena, hematochezia, hematuria, or other bleeding. He does have some epigastric tenderness that is now described as mild, but 2 weeks ago was worse. He also has had intermittent nausea but no vomiting. His reports that his baseline heart rate is typically in the mid 60s but more recently it has been lower. He has been on Bystolic chronically as well as verapamil for many years. His last dose of verapamil was yesterday morning while his last dose of Bystolic was Sunday evening. He has noted a fullness/discomfort in his right suprapubic area. He feels as though there is a palpable abnormality in that area. He denies any tick bite and reports being tested for Lyme disease twice in the recent past and that these findings were negative. His reports a recent dental cap. He also reports feeling cold but no shaking chills. Review of systems: As above. Review of systems otherwise negative/unremarkable. Social history: He denies smoking. Occasional alcohol. No drugs. Lives at home with his . They moved to [place] from [place] in the summer of 2018. He works as a [employer] at [employer]. 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 His is a retired critical care nurse. They have 2 daughters, 1 year [place] and 1 in [place]. His is present at the bedside. Family history: Father had OR at the age of 57 and underwent aortic valve replacement for bicuspid aortic valve. Mother had hypertension. Paternal grandfather OR at the age of 44 and at 52. Allergies Allergy/AdvReac Type Severity Reaction Status Date / Time pantoprazole Allergy Severe Unknown Verified 06/05/19 23:34 clopidogrel [From Plavix] Allergy Unknown Anaphylaxis Verified 06/05/19 23:34 Home Medications Home Medications Medication Instructions Recorded Confirmed Type albuterol sulfate HFA 90 2 puff INHALATION Q4H PRN 05/22/19 06/05/19 History mcg/actuation aerosol inhaler allopurinol 100 mg tablet 100 mg PO BID #180 tab 05/22/19 06/05/19 Rx cetirizine 10 mg tablet 10 mg PO QAM 05/22/19 06/05/19 History fluticasone propionate 50 1 spray INTRANASAL BID 05/22/19 06/05/19 History mcg/actuation nasal spray,suspension montelukast 10 mg tablet 10 mg PO HS #90 tab 05/22/19 06/05/19 Rx naproxen 500 mg tablet 500 mg PO BID PRN 05/22/19 06/05/19 History omega-3 fatty acids 1,000 mg 1,000 mg PO DAILY 05/22/19 06/05/19 History capsule rosuvastatin 20 mg tablet 20 mg PO HS #90 tab 05/22/19 06/05/19 Rx varicella-zoster glycoE [id number] 0.5 ml IM .COMPLEX #1 ea 05/22/19 06/05/19 Rx adj(PF) 50 mcg/0.5 mL IM susp, kit verapamil 120 mg tablet 120 mg PO BID #180 tab 05/22/19 06/05/19 Rx Bystolic 5 mg PO HS 06/02/19 06/05/19 History aspirin [Ecotrin Low Strength] 81 mg PO QAM #30 tab 06/04/19 06/05/19 Rx diphenhydramine HCl [Benadryl] 25 mg PO TID PRN #30 cap 06/04/19 06/05/19 Rx epinephrine [EpiPen 2-Juan] 0.3 mg IM Q3H PRN #1 ea 06/04/19 06/05/19 Rx famotidine 20 mg PO BID #60 tab 06/04/19 06/05/19 Rx prednisone 60 mg PO DAILY #21 tab 06/04/19 06/05/19 Rx valsartan 320 mg PO DAILY #30 tab 06/04/19 06/05/19 Rx Patient History Medical History Asthma (Chronic) CAD (coronary artery disease), prairie band coronary artery (Chronic) GERD (gastroesophageal reflux disease) (Chronic) Hyperlipidemia (Chronic) Hypertension (Chronic) Allergic rhinitis Patent foramen ovale Surgical History H/O right heart catheterization [place] teeth removed Family History Father Myocardial infarction Heart disease Mother Parkinson disease Social History Preferred Language: Bulgarian Communication Ability: Effective Visual Impairment: No Limitations Hearing Ability: Normal Deputy General Counsel Required: No Beliefs That Will Affect Care: None marital status: Current Living Situation: Spouse current occupational status: employed 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 Hx Substance Use: No Childhood Exposure to Second-Hand Smoke: No Dental Care, Regularly: Yes Physical Activity Frequency: 1-2 Times per Week Seatbelt Use: always Physical Exam Physical Exam: Gen.: No acute distress. Alert and oriented. HEENT: Anicteric sclera. Neck: No JVD. No bruits. Normal carotid upstrokes bilaterally. Cardiac: PMI was nondisplaced. No ventricular heave. Regular but bradycardic. Normal S1-S2. No murmurs, rubs, or gallops. Pulmonary: Decreased breath sounds throughout, but otherwise clear bilaterally. Abdomen: Soft, nontender, nondistended, with normoactive bowel sounds. No bruits noted. Extremities: 2+ radial pulses bilaterally. 2+ posterior tibialis pulses bilaterally. Minimal/trace distal lower extremity edema. No cyanosis. No palpable cords. Psychiatric: Affect appears appropriate. Results & Data Vital Signs (Past 12 Hours) Vital Signs Temp Pulse Resp BP Pulse Ox 06/06/19 12:55 96 06/06/19 11:22 37.0 C 45 L 18 137/83 06/06/19 07:41 36.6 C 43 L 19 143/81 H 97 Laboratory Results Laboratory Results - last 24 hr 06/05/19 06/05/19 06/05/19 21:23 21:23 21:23 WBC 6.86 RBC 4.42 L Hgb 14.1 Hct 39.7 L MCV 89.8 MCH 31.9 MCHC 35.5 RDW Std Deviation 43.8 RDW Coeff of Nafisa 13.3 Plt Count 282 MPV 9.9 Immature Gran % (Auto) 0.4 Neut % (Auto) 82.7 Lymph % (Auto) 10.9 [place] % (Auto) 6.0 Eos % (Auto) 0.0 Baso % (Auto) 0.0 Immature Gran # (Auto) 0.03 H Neut # (Auto) 5.67 Lymph # (Auto) 0.75 L [place] # (Auto) 0.41 Eos # (Auto) 0.00 Baso # (Auto) 0.00 ESR PT 11.7 INR 1.2 H APTT 23.6 PTT Ratio 0.9 D-Dimer 2250 H* Sodium 133 L Potassium 4.2 Chloride 99 Carbon Dioxide 26 Anion Gap 8.0 BUN 14 Creatinine 0.99 Est Cr Clr Drug Dosing 97.2 Est GFR ( Amer) 97.6 Est GFR (Non-Af Amer) 84.2 BUN/Creatinine Ratio 14.5 Glucose 170 H Calcium 9.2 Magnesium 2.5 H Total Bilirubin 0.4 Direct Bilirubin AST 96 H ALT 189 H Alkaline Phosphatase 49 Troponin I < 0.015 C-Reactive Protein 1.47 H NT-Pro-B Natriuret Pep 1537 H Total Protein 7.2 D Albumin 4.0 Globulin 3.2 Albumin/Globulin Ratio 1.2 Procalcitonin TSH 0.855 Free T4 0.96 Urine Color Urine Appearance Urine pH Ur Specific [place] Urine Protein Urine Glucose (UA) Urine Ketones Urine Blood Urine Nitrite Urine Bilirubin Urine Urobilinogen Ur Leukocyte Esterase 06/05/19 06/05/19 06/05/19 21:23 21:23 21:23 WBC RBC Hgb Hct MCV MCH MCHC RDW Std Deviation RDW Coeff of Nafisa Plt Count MPV Immature Gran % (Auto) Neut % (Auto) Lymph % (Auto) [place] % (Auto) Eos % (Auto) Baso % (Auto) Immature Gran # (Auto) Neut # (Auto) Lymph # (Auto) [place] # (Auto) Eos # (Auto) Baso # (Auto) ESR 14 PT INR APTT PTT Ratio D-Dimer Sodium Potassium Chloride Carbon Dioxide Anion Gap BUN Creatinine Est Cr Clr Drug Dosing Est GFR ( Amer) Est GFR (Non-Af Amer) BUN/Creatinine Ratio Glucose Calcium Magnesium Total Bilirubin Direct Bilirubin AST ALT Alkaline Phosphatase Troponin I C-Reactive Protein NT-Pro-B Natriuret Pep Total Protein Albumin Globulin Albumin/Globulin Ratio Procalcitonin < 0.05 TSH Free T4 Urine Color Yellow Urine Appearance Clear Urine pH 7.5 Ur Specific [place] 1.007 Urine Protein Negative Urine Glucose (UA) Negative Urine Ketones Negative Urine Blood Negative Urine Nitrite Negative Urine Bilirubin Negative Urine Urobilinogen Negative Ur Leukocyte Esterase Negative 06/06/19 06/06/19 06/06/19 09:15 09:15 09:15 WBC 7.92 RBC 4.20 L Hgb 13.5 L Hct 37.2 L MCV 88.6 MCH 32.1 MCHC 36.3 H RDW Std Deviation 42.8 RDW Coeff of Nafisa 13.2 Plt Count 262 MPV 9.2 Immature Gran % (Auto) 0.3 Neut % (Auto) 66.3 Lymph % (Auto) 25.5 [place] % (Auto) 7.1 Eos % (Auto) 0.8 Baso % (Auto) 0.0 Immature Gran # (Auto) 0.02 Neut # (Auto) 5.26 Lymph # (Auto) 2.02 [place] # (Auto) 0.56 Eos # (Auto) 0.06 Baso # (Auto) 0.00 ESR PT 12.3 H INR 1.2 H APTT PTT Ratio D-Dimer Sodium 137 Potassium 3.8 Chloride 101 Carbon Dioxide 29 Anion Gap 7.0 BUN 14 Creatinine 0.95 Est Cr Clr Drug Dosing 98.5 Est GFR ( Amer) 102.6 Est GFR (Non-Af Amer) 88.5 BUN/Creatinine Ratio 14.4 Glucose 134 H Calcium 8.9 Magnesium Total Bilirubin 0.3 Direct Bilirubin < 0.1 AST 40 H ALT 141 H Alkaline Phosphatase 44 L Troponin I C-Reactive Protein NT-Pro-B Natriuret Pep Total Protein 6.4 Albumin 3.5 Globulin Albumin/Globulin Ratio Procalcitonin TSH Free T4 Urine Color Urine Appearance Urine pH Ur Specific [place] Urine Protein Urine Glucose (UA) Urine Ketones Urine Blood Urine Nitrite Urine Bilirubin Urine Urobilinogen Ur Leukocyte Esterase 06/06/19 14:22 WBC RBC Hgb Hct MCV MCH MCHC RDW Std Deviation RDW Coeff of Nafisa Plt Count MPV Immature Gran % (Auto) Neut % (Auto) Lymph % (Auto) [place] % (Auto) Eos % (Auto) Baso % (Auto) Immature Gran # (Auto) Neut # (Auto) Lymph # (Auto) [place] # (Auto) Eos # (Auto) Baso # (Auto) ESR PT INR APTT PTT Ratio D-Dimer Sodium Potassium Chloride Carbon Dioxide Anion Gap BUN Creatinine Est Cr Clr Drug Dosing Est GFR ( Amer) Est GFR (Non-Af Amer) BUN/Creatinine Ratio Glucose Calcium Magnesium Total Bilirubin Direct Bilirubin AST ALT Alkaline Phosphatase Troponin I < 0.015 C-Reactive Protein NT-Pro-B Natriuret Pep Total Protein Albumin Globulin Albumin/Globulin Ratio Procalcitonin TSH Free T4 Urine Color Urine Appearance Urine pH Ur Specific [place] Urine Protein Urine Glucose (UA) Urine Ketones Urine Blood Urine Nitrite Urine Bilirubin Urine Urobilinogen Ur Leukocyte Esterase Diagnostic Findings Telemetry personally reviewed: Sinus bradycardia. Heart rate overall has slowly improved after discontinuation of beta-nando and calcium channel nando. Telemetry was personally evaluated while patient was asked to walk in the hallway. With a slow paced, short walk, his heart rate increased to the lower 80s. Rhythm remained sinus. ECG personally reviewed: ECG 06/05/2019 at 2100: Sinus bradycardia 47 bpm. Otherwise normal ECG. ECG 06/06/2019: Sinus bradycardia 51 bpm. Otherwise normal ECG. Echo 06/06/2019: Normal LV size, wall motion, systolic function. EF 60-65%. No significant valvular abnormalities. Medications Administered Current Inpatient Medications Acetaminophen (Tylenol) 650 mg PO Q4H PRN PRN Reason: Pain or Fever Stop: 07/06/19 01:36 Albuterol (Ventolin Hfa) 2 puffs INH Q4H PRN PRN Reason: Shortness Of Breath Or Wheezing Stop: 07/06/19 03:09 Allopurinol (Zyloprim) 100 mg PO BID [facility] Stop: 07/06/19 08:59 Last Admin: 06/06/19 08:02 Dose: 100 mg Documented by: Aspirin (Ecotrin Ectab) 81 mg PO QAM [facility] Stop: 07/06/19 08:59 Last Admin: 06/06/19 08:00 Dose: 81 mg Documented by: Cetirizine HCl (Zyrtec) 10 mg PO QAM [facility] Stop: 07/06/19 08:59 Last Admin: 06/06/19 08:02 Dose: 10 mg Documented by: Diphenhydramine HCl (Benadryl Capsule) 25 mg PO TID PRN PRN Reason: allergy symptoms Stop: 07/06/19 03:09 Enoxaparin Sodium (Lovenox) 40 mg SQ DAILY [facility] Stop: 07/06/19 09:29 Last Admin: 06/06/19 10:11 Dose: 40 mg Documented by: Famotidine (Pepcid) 20 mg PO BID [facility] Stop: 07/06/19 08:59 Last Admin: 06/06/19 08:01 Dose: 20 mg Documented by: Fish Oil ([place]-3 (Purified Fish Oil)) 1 gm PO DAILY [facility] Stop: 07/06/19 08:59 Last Admin: 06/06/19 08:01 Dose: 1 gm Documented by: Fluticasone Propionate (Flonase) 1 sprays EVA BID [facility] Stop: 07/06/19 08:59 Last Admin: 06/06/19 08:00 Dose: 1 sprays Documented by: Epinephrine HCl 0.3 mg/ (Syringe) 0.3 mls @ 18 mls/min IM Q3H PRN PRN Reason: ANAPHYLAXIS Stop: 07/06/19 06:36 Ioversol (Optiray 320 125ml) 125 ml IV ONCE PRN PRN Reason: Interaction Checking Stop: 06/09/19 22:41 Last Admin: 06/05/19 22:42 Dose: 89 ml Documented by: Ondansetron HCl (Zofran) 4 mg IV Q6H PRN PRN Reason: Nausea Stop: 07/06/19 01:36 Prednisone (Prednisone) 40 mg PO DAILY LATESHA; Taper Stop: 06/11/19 08:59 Rosuvastatin Calcium (Crestor) 20 mg PO HS [facility]ESHA Stop: 07/06/19 20:59 Valsartan (Diovan) 320 mg PO DAILY [facility] Stop: 07/06/19 08:59 Last Admin: 06/06/19 07:59 Dose: 320 mg Documented by: PG Care Time/CCT Total # of Minutes Spent Total Time Spent with Patient: Total time spent is greater than 50% in coordination of care (as documented) at patient's floor/unit and/or counseling patient:
[2019-06-06] MEDS ORDERED: FUROSEMIDE 20 MG in SYRINGE 0 ML IV ONE (14:30)
--- NOTE | 2019-06-06 16:33 | Hospitalist Progress Note ---
Date of Service June 06, 2019 Assessment & Plan (1) Symptomatic bradycardia: Patient is in the hospital for the 3rd time within past month-1st for slowed mentation and TIA/CVA workup, second for anaphylaxis, and now for volume overload, lightheadedness, and bradycardia. -Lyme titer again is negative, no high degree heart blocks HR is improving now with holding both his home verapamil and Bystolic Still with fatigue easily with minimal exertion TSH normal, ESR normal, CRP minimally elevated Troponin negative x 2 ECG with 1st deg AV block, no high degree blocks. HR is appropriately rising with exertion but still feeling fatigued In the past, has traditionally had resting HR in the 60s for years and has been on the same dose of verapamil and Bystolic. Then, has been in the 50s and now down to high 30s at times despite same doses. Had recent anaphylaxis and is on steroid taper, taking H2 nando and benadryl--> doubt would cause any bradycardia -permanently dc verapamil and Bystolic/any AV armando blocking agents -continue tele monitoring -if HR or fatigue not improving with continuing to hold AV armando blocking agents, consider stress testing on Sunday -Appreciate Cardiology consultation-no indication for pacer at this time (2) Hypervolemia: Admitted with small bilat pleural effusions on imaging, LE and scrotal edema, elevated proBNP, and weight gain ECHO with preserved EF as before, no WMAs Likely related to recent copious IVFs, discontinuation of HCTZ for hyponatremia last admission, and fluid retention from IV and po steroid use for recent anaphylaxis -much improved today with IV lasix on admission -give another dose of Lasix 20mg IV x 1 now and start lasix 20mg po qAM tomorrow -follow daily weights, I/Os (3) Elevated d-dimer: D-DIMER was elevated, however his clinical picture does not appear to be of that someone with a pulmonary emboli. Patient is not having hypoxia, tachycardia, pleuritic chest pain. CTA of chest showed suboptimal opacification of lower lobe pulm arteries and could not exclude chronic appearing PEs in smaller vessels there Doppler LEs bilat is neg for DVT D-dimer could certainly be elevated secondary to recent anaphylaxis as confirmed with [employer] on the phone -would not treat or repeat CT scan of chest (4) Gout: stable -continue home allopurinol (5) Anaphylactic reaction: recent admission 2 days ago for anaphylaxis thought to be secondary to possibly Protonix, Plaivx, or wheat beer. -was treated with Epi pen, IV and then po steroids, pepcid, Zyrtec, and Benadryl -resolved -finish out prednisone taper down by 10mg each day until done--> 40mg for tomorrow -continue pepcid 20mg bid, Zyrtec 10mg daily -has scheduled f/u with [employer] in a few weeks -tryptase level pending from previous (6) Hyponatremia: Now completely resolved with being off HCTZ -continue to follow BMP (7) Prediabetes: last admission found to have very mildly elevated HgbA1C -counseled previously on dietary changes and weight loss (8) CAD (coronary artery disease), [place] coronary artery: h/o high calcium score on CTA Coronaries and had subsequent cath showing 40% lesion LAD and another vessel with mod, nonobstructive disease -continue medical management with ASA, statin -now dcing beta nando as above (9) GERD (gastroesophageal reflux disease): long-standing, has frequent breakthrough symptoms -continue pepcid bid -PPIs ALL DISCONTINUED previously in case of cause of anaphylaxis (10) Hyperlipidemia: continue statin (11) Hypertension: BP has required 4 meds in the past to control. Verapamil and Bystolic now stopped as above -continue valsartan -make lasix 20mg po daily standing dose -consider adding on amlodipine if BPs remain elevated -could also consider hytrin, hydralazine (12) Allergic rhinitis: -continue Zyrtec, FLonase (13) Abdominal pain: Has c/o bulge in rt groin and RLQ pain CT abd/pel ordered and shows bilat fat-containing inguinal hernias, pericolonic edema, and mild pericholecystic fluid LFTs mildly elevated as below likely from hepatic congestion -consider RUQ US (14) Elevated transaminase measurement: AST and ALT significantly higher than previous, INR remains mildly elevated at 1.2. LFTs trending downward today Likely hepatic congestion from volume overload -CT Abd/pel with possible pericholecystic fluid-->consider RUQ US as above Abd pain is in right groin and not related to elevated LFTs -follow LFTs in AM (15) DVT prophylaxis: Lovenox SQ Dispo-remain on tele Subjective Pt still feeling very fatigued with minimal exertion, some lightheadedness. Denies CP, denies SOB. Hives from previous now almost completely resolved. No abd pain. Is making plenty of urine. No nausea. Feeling very frustrated about being here 3 times in the last 3 weeks. I discussed the case with Cardiology. Tele with SB, rates high 30s overnight, currently in 40s-50s, but does get up to the 80s with minimal exertion Review of Systems Review of Systems: All systems reviewed & are unremarkable except as noted in HPI & below Physical Exam Constitutional: WD/WN, vitals as above Eyes: + anicteric sclerae Neck: trachea midline, no thyromegaly Respiratory: normal respiratory effort, lungs clear to auscultation Cardiovascular: Rate/Rhythm: regular rhythm and + bradycardic Heart Sounds: no murmur Extremities: + edema (trace pitting edema bilat LEs) Gastrointestinal (Abdomen): normal bowel sounds, soft, nontender, no hepatosplenomegaly Musculoskeletal: Extremities: no cyanosis and no clubbing Skin: no rashes, warm and dry (previously seen hives now resolved) Neurologic: moves all extremities and awake; no focal motor deficits Psychiatric: A+Ox3, euthymic affect Genitourinary: no testicular masses, no penis abnormality + hernia (palpable RIH) Results & Data Vital Signs (Past 12 Hours) Vital Signs Temp Pulse Pulse Resp BP Pulse Ox 06/06/19 15:41 36.4 C L 45 L 18 148/90 H 96 06/06/19 12:55 96 06/06/19 11:22 37.0 C 45 L 18 137/83 06/06/19 07:41 36.6 C 43 L 19 143/81 H 97 Laboratory Results 06/06/19 06/06/19 06/06/19 Range/Units 14:22 09:15 09:15 WBC (4.8-10.8) K/uL RBC (4.7-6.1) M/uL Hgb (14.0-18.0) g/dL Hct (42-52) % MCV (80-100) fL MCH (25-34) pg MCHC (32-36) g/dL RDW Std Deviation (36.4-46.3) fL RDW Coeff of Nafisa (11.5-14.5) % Plt Count (130-400) K/uL MPV (7.4-10.4) fL Immature Gran % (Auto) % Neut % (Auto) % Lymph % (Auto) % [place] % (Auto) % Eos % (Auto) % Baso % (Auto) % Immature Gran # (Auto) (0.00-0.02) K/uL Neut # (Auto) (1.4-6.5) K/uL Lymph # (Auto) (1.2-3.4) K/uL [place] # (Auto) (0.11-0.59) K/uL Eos # (Auto) (0-0.5) K/uL Baso # (Auto) (0-0.2) K/uL ESR (0-14) mm/hr PT 12.3 H (9.0-12.0) Seconds INR 1.2 H (0.9-1.1) Sodium 137 (136-145) mmol/L Potassium 3.8 (3.5-5.1) mmol/L Chloride 101 (98-107) mmol/L Carbon Dioxide 29 (21-32) mmol/L Anion Gap 7.0 (3-11) BUN 14 (7-18) mg/dl Creatinine 0.95 (0.6-1.4) mg/dl Est Cr Clr Drug Dosing 98.5 ml/min Est GFR ( Amer) 102.6 Est GFR (Non-Af Amer) 88.5 BUN/Creatinine Ratio 14.4 (10-20) Glucose 134 H (70-99) mg/dl Calcium 8.9 (8.5-10.1) mg/dl Total Bilirubin 0.3 (0.2-1) mg/dl Direct Bilirubin < 0.1 (0-0.2) mg/dl AST 40 H (15-37) U/L ALT 141 H (12-78) U/L Alkaline Phosphatase 44 L (45-117) U/L Troponin I < 0.015 (0-0.045) ng/ml C-Reactive Protein (0-0.29) mg/dl Total Protein 6.4 (6.4-8.2) gm/dl Albumin 3.5 (3.4-5.0) gm/dl Procalcitonin (0-0.5) ng/ml TSH (0.300-4.500) uIu/ml Free T4 (0.8-1.6) ng/dl 06/06/19 06/05/19 06/05/19 Range/Units 09:15 21:23 21:23 WBC 7.92 (4.8-10.8) K/uL RBC 4.20 L (4.7-6.1) M/uL Hgb 13.5 L (14.0-18.0) g/dL Hct 37.2 L (42-52) % MCV 88.6 (80-100) fL MCH 32.1 (25-34) pg MCHC 36.3 H (32-36) g/dL RDW Std Deviation 42.8 (36.4-46.3) fL RDW Coeff of Nafisa 13.2 (11.5-14.5) % Plt Count 262 (130-400) K/uL MPV 9.2 (7.4-10.4) fL Immature Gran % (Auto) 0.3 % Neut % (Auto) 66.3 % Lymph % (Auto) 25.5 % [place] % (Auto) 7.1 % Eos % (Auto) 0.8 % Baso % (Auto) 0.0 % Immature Gran # (Auto) 0.02 (0.00-0.02) K/uL Neut # (Auto) 5.26 (1.4-6.5) K/uL Lymph # (Auto) 2.02 (1.2-3.4) K/uL [place] # (Auto) 0.56 (0.11-0.59) K/uL Eos # (Auto) 0.06 (0-0.5) K/uL Baso # (Auto) 0.00 (0-0.2) K/uL ESR 14 (0-14) mm/hr PT (9.0-12.0) Seconds INR (0.9-1.1) Sodium (136-145) mmol/L Potassium (3.5-5.1) mmol/L Chloride (98-107) mmol/L Carbon Dioxide (21-32) mmol/L Anion Gap (3-11) BUN (7-18) mg/dl Creatinine (0.6-1.4) mg/dl Est Cr Clr Drug Dosing ml/min Est GFR ( Amer) Est GFR (Non-Af Amer) BUN/Creatinine Ratio (10-20) Glucose (70-99) mg/dl Calcium (8.5-10.1) mg/dl Total Bilirubin (0.2-1) mg/dl Direct Bilirubin (0-0.2) mg/dl AST (15-37) U/L ALT (12-78) U/L Alkaline Phosphatase (45-117) U/L Troponin I (0-0.045) ng/ml C-Reactive Protein (0-0.29) mg/dl Total Protein (6.4-8.2) gm/dl Albumin (3.4-5.0) gm/dl Procalcitonin < 0.05 (0-0.5) ng/ml TSH (0.300-4.500) uIu/ml Free T4 (0.8-1.6) ng/dl 06/05/19 Range/Units 21:23 WBC (4.8-10.8) K/uL RBC (4.7-6.1) M/uL Hgb (14.0-18.0) g/dL Hct (42-52) % MCV (80-100) fL MCH (25-34) pg MCHC (32-36) g/dL RDW Std Deviation (36.4-46.3) fL RDW Coeff of Nafisa (11.5-14.5) % Plt Count (130-400) K/uL MPV (7.4-10.4) fL Immature Gran % (Auto) % Neut % (Auto) % Lymph % (Auto) % [place] % (Auto) % Eos % (Auto) % Baso % (Auto) % Immature Gran # (Auto) (0.00-0.02) K/uL Neut # (Auto) (1.4-6.5) K/uL Lymph # (Auto) (1.2-3.4) K/uL [place] # (Auto) (0.11-0.59) K/uL Eos # (Auto) (0-0.5) K/uL Baso # (Auto) (0-0.2) K/uL ESR (0-14) mm/hr PT (9.0-12.0) Seconds INR (0.9-1.1) Sodium (136-145) mmol/L Potassium (3.5-5.1) mmol/L Chloride (98-107) mmol/L Carbon Dioxide (21-32) mmol/L Anion Gap (3-11) BUN (7-18) mg/dl Creatinine (0.6-1.4) mg/dl Est Cr Clr Drug Dosing ml/min Est GFR ( Amer) Est GFR (Non-Af Amer) BUN/Creatinine Ratio (10-20) Glucose (70-99) mg/dl Calcium (8.5-10.1) mg/dl Total Bilirubin (0.2-1) mg/dl Direct Bilirubin (0-0.2) mg/dl AST (15-37) U/L ALT (12-78) U/L Alkaline Phosphatase (45-117) U/L Troponin I (0-0.045) ng/ml C-Reactive Protein 1.47 H (0-0.29) mg/dl Total Protein (6.4-8.2) gm/dl Albumin (3.4-5.0) gm/dl Procalcitonin (0-0.5) ng/ml TSH 0.855 (0.300-4.500) uIu/ml Free T4 0.96 (0.8-1.6) ng/dl PG Care Time/CCT Total # of Minutes Spent Total Time Spent with Patient: Total time spent is greater than 50% in coordination of care (as documented) at patient's floor/unit and/or counseling patient: (1) Anaphylactic reaction Encounter type: initial encounter Qualified Code(s): T78.2XXA - Anaphylactic shock, unspecified, initial encounter
[2019-06-06] MEDS ORDERED: IOVERSOL 100ml IV PRN (18:15)
--- NOTE | 2019-06-06 18:23 | CT Scan Report ---
CT abd pelvis IV con only CT DOSE: 618.59 mGy.cm HISTORY: Pain. Nausea. RLQ pain, suspect rt inguinal hernia TECHNIQUE: Multiaxial CT images of the abdomen and pelvis were performed following the use of intrave nous contrast. A dose lowering technique was utilized adhering to the principles of ALARA. COMPARISON STUDY: None. FINDINGS: Small right pleural effusion. Mild bibasilar atelectatic change. Liver spleen and pancreas appear unremarkable. Gallbladder is contracted with possibility of a small amount of pericholecystic infiltrative change. Nonobstructive bowel pattern. Trace amount of pericolonic infiltrative change bilaterally. Given the symmetry this may be chronic. No evidence for bowel obstruction change. No evidence for abscess or collection. Small bilateral fat-containing inguinal hernias. No evidence for bowel containment or obstructive zofia nge. IMPRESSION: 1. Nonobstructive bowel pattern. 2. Small bilateral pleural effusions with bibasilar atelectatic change. 3. Bilateral fat-containing inguinal hernias with no evidence for bowel containment or obstructive ch brandyn. The above report was generated using voice recognition software. It may contain grammatical, syntax or spelling errors. Electronically signed by: Ezra Bolden M.D. 06/06/2019 6:22 PM
[2019-06-06] MEDS: ROSUVASTATIN CALCIUM 20 MG TAB PO SCH (21:28)
[2019-06-07 06:05] LABS: Eosinophils # (auto) 0.16 K/uL (0-0.5); Eosinophils % (auto) 1.6 %; Hematocrit (blood only) 39.1 % (42-52); Hemoglobin 14.2 g/dL (14.0-18.0); Immature Granulocytes # (auto) 0.07 K/uL (0.00-0.02); Immature Granulocytes % (auto) 0.7 %; Lymphocytes # (auto) 2.05 K/uL (1.2-3.4); Lymphocytes % (auto) 21.1 %; Mean Corpuscular Hgb Conc 36.3 g/dL (32-36); Mean Corpuscular Volume 88.5 fL (80-100); Mean Platelet Volume 9.3 fL (7.4-10.4); Monocytes # (auto) 0.81 K/uL (0.11-0.59); Monocytes % (auto) 8.3 %; Neutrophils # (auto) 6.64 K/uL (1.4-6.5); Neutrophils % (auto) 68.3 %; Platelet Count 292 K/uL (130-400); RDW Coefficient of Variation 12.9 % (11.5-14.5); RDW Standard Deviation 41.7 fL (36.4-46.3); Red Blood Count 4.42 M/uL (4.7-6.1); White Blood Count 9.73 K/uL (4.8-10.8)
[2019-06-07 06:42] LABS: Alanine Aminotransferase 113 U/L (12-78); Albumin Level 3.4 gm/dl (3.4-5.0); Aspartate Aminotransferase 22 U/L (15-37); BUN Creatinine Ratio 16.1 (10-20); Bilirubin Direct < 0.1 mg/dl (0-0.2); Blood Urea Nitrogen 17 mg/dl (7-18); Calcium 8.8 mg/dl (8.5-10.1); Carbon Dioxide 27 mmol/L (21-32); Chloride 101 mmol/L (98-107); Est GFR (Non-African American) 80.3; Glucose 192 mg/dl (70-99); Potassium 3.6 mmol/L (3.5-5.1); Sodium 136 mmol/L (136-145)
[2019-06-07 06:45] LABS: Alkaline Phosphatase 48 U/L (45-117); Bilirubin,Total 0.3 mg/dl (0.2-1); Total Protein 6.6 gm/dl (6.4-8.2)
[2019-06-07] MEDS: VALSARTAN 80 MG TAB PO SCH (07:49)
[2019-06-07] MEDS: ASPIRIN 81 MG ECTAB PO SCH (07:49)
[2019-06-07] MEDS: FAMOTIDINE 20 MG TAB PO SCH ×2 (07:49→21:08)
[2019-06-07] MEDS: ENOXAPARIN INJ 40 MG/0.4 ML SYR SQ SCH (07:50)
[2019-06-07] MEDS: FUROSEMIDE 20 MG TAB PO SCH (07:50)
[2019-06-07] MEDS: predniSONE 10 MG TABLET PO SCH (07:50)
[2019-06-07] MEDS: OMEGA-3 (PURIFIED FISH OIL) 1 GM CAP PO SCH (07:50)
[2019-06-07] MEDS: FLUTICASONE PROPIONATE NA SPR 16 GM BTL NAE SCH ×2 (07:51→21:07)
[2019-06-07] MEDS: CETIRIZINE HCL 10 MG TABLET PO SCH (07:51)
[2019-06-07] MEDS: ALLOPURINOL 100 MG TAB PO SCH ×2 (07:52→21:08)
--- NOTE | 2019-06-07 13:50 | Hospitalist Progress Note ---
Date of Service June 07, 2019 Assessment & Plan (1) Symptomatic bradycardia: Patient is in the hospital for the 3rd time within past month-1st for slowed mentation and TIA/CVA workup, second for anaphylaxis, and now for volume overload, lightheadedness, and bradycardia. - HR is improving now with holding both his home verapamil and Bystolic - Seen by cardiology with thought this was iatrogenic. - By 06/07, it was improving with holding his beta-nando and calcium channel nando. Will walk around and monitor today. Possible discharge tomorrow if HR remains stable. Will follow up with cardiology on Sunday (has appt already from prior admission.) He will have his (an RN) check his BP and HR the week up to the appt. (2) Hypervolemia: Admitted with small bilateral pleural effusions on imaging, LE and scrotal edema, elevated proBNP, and weight gain. ECHO with preserved EF as before, no WMAs. - Likely related to recent copious IVFs, discontinuation of HCTZ for hyponatremia last admission, and fluid retention from IV and po steroid use for recent anaphylaxis - Much improved with periodic IV Lasix - Hold all diuretics today; will let his kidneys do the rest. (3) Elevated d-dimer: D-DIMER was elevated, however his clinical picture does not appear to be of that someone with a pulmonary emboli. D-dimer could certainly be elevated secondary to recent anaphylaxis as confirmed with [employer] on the phone. - Would not treat (4) Gout: Stable -continue home allopurinol (5) Anaphylactic reaction: Recent admission 2 days ago for anaphylaxis thought to be secondary to possibly Protonix, Plaivx, or wheat beer. - Was treated with Epi pen, IV and then po steroids, pepcid, Zyrtec, and Benadryl - Resolved - Finish out prednisone taper down by 10mg each day until done--> 40mg for tomorrow - Continue pepcid 20mg bid, Zyrtec 10mg daily - Has scheduled f/u with [employer] in a few weeks - Tryptase level pending from previous (6) Hyponatremia: Now completely resolved with being off HCTZ -continue to follow BMP (7) Prediabetes: last admission found to have very mildly elevated HgbA1C -counseled previously on dietary changes and weight loss (8) CAD (coronary artery disease), [place] coronary artery: H/o high calcium score on CTA Coronaries and had subsequent cath showing 40% lesion LAD and another vessel with mod, nonobstructive disease -continue medical management with ASA, statin -now dcing beta nando as above (9) GERD (gastroesophageal reflux disease): long-standing, has frequent breakthrough symptoms -continue pepcid bid -PPIs ALL DISCONTINUED previously in case of cause of anaphylaxis (10) Hyperlipidemia: continue statin (11) Hypertension: BP has required 4 meds in the past to control. Verapamil and Bystolic now stopped as above - Continue valsartan - Make lasix 20mg po daily standing dose - Start amlodipine low-dose - Could also consider hytrin, hydralazine (12) Allergic rhinitis: -continue Zyrtec, FLonase (13) Abdominal pain: Has c/o bulge in rt groin and RLQ pain CT abd/pel ordered and shows bilat fat-containing inguinal hernias, pericolonic edema, and mild pericholecystic fluid LFTs mildly elevated as below likely from hepatic congestion -consider RUQ US (14) Elevated transaminase measurement: AST and ALT significantly higher than previous, INR remains mildly elevated at 1.2. LFTs trending downward today. Likely hepatic congestion from volume overload. - CT Abd/pel with possible pericholecystic fluid-->consider RUQ US as above - Abd pain is in right groin and not related to elevated LFTs - Follow LFTs in AM (15) DVT prophylaxis: Lovenox SQ Dispo-remain on tele Subjective Feeling better today. No major concerns. Has been up and walking around. Improved swelling in the legs. Review of Systems Review of Systems: All systems reviewed & are unremarkable except as noted in HPI & below Physical Exam Constitutional: WD/WN, vitals as above Eyes: EOM intact bilaterally; no conjunctival abnormality ENMT: external ear and nose normal, oropharynx normal Neck: trachea midline, no thyromegaly normal visual inspection Respiratory: normal respiratory effort, lungs clear to auscultation no respiratory distress Cardiovascular: Rate/Rhythm: regular rhythm and + bradycardic Heart Sounds: normal S1 and normal S2 Vessels: no JVD Extremities: no edema Gastrointestinal (Abdomen): Inspection/Auscultation: abdomen normal to inspection; abdomen not distended Musculoskeletal: no cyanosis or clubbing, extremities motor strength 5/5 Skin: no rashes, warm and dry Neurologic: moves all extremities and awake Psychiatric: Orientation: alert, oriented to person and cooperative Results & Data Vital Signs (Past 12 Hours) Vital Signs Temp Pulse Resp BP Pulse Ox 06/07/19 11:24 36.5 C 49 L 18 147/94 H 97 06/07/19 08:00 36.6 C 97 H 16 156/89 H 97 06/07/19 03:17 36.6 C 51 L 18 129/77 94 PG Care Time/CCT Total # of Minutes Spent Total Time Spent with Patient: Total time spent is greater than 50% in coordination of care (as documented) at patient's floor/unit and/or counseling patient: (1) Anaphylactic reaction Encounter type: initial encounter Qualified Code(s): T78.2XXA - Anaphylactic shock, unspecified, initial encounter
[2019-06-07] MEDS: ROSUVASTATIN CALCIUM 20 MG TAB PO SCH (21:07)
[2019-06-08] MEDS: FLUTICASONE PROPIONATE NA SPR 16 GM BTL NAE SCH (08:47)
[2019-06-08] MEDS: ALLOPURINOL 100 MG TAB PO SCH (08:48)
[2019-06-08] MEDS: VALSARTAN 80 MG TAB PO SCH (08:48)
[2019-06-08] MEDS: ASPIRIN 81 MG ECTAB PO SCH (08:48)
[2019-06-08] MEDS: CETIRIZINE HCL 10 MG TABLET PO SCH (08:48)
[2019-06-08] MEDS: FUROSEMIDE 20 MG TAB PO SCH (08:48)
[2019-06-08] MEDS: predniSONE 10 MG TABLET PO SCH (08:48)
[2019-06-08] MEDS: OMEGA-3 (PURIFIED FISH OIL) 1 GM CAP PO SCH (08:48)
[2019-06-08] MEDS: ENOXAPARIN INJ 40 MG/0.4 ML SYR SQ SCH (08:49)
[2019-06-08] MEDS: FAMOTIDINE 20 MG TAB PO SCH (08:49)
--- NOTE | 2019-06-08 12:12 | Discharge Summary ---
Date of Service June 08, 2019 Admission HPI Per Admitting Provider This is a pleasant 59 yo male who returns to the hospital with complaints of lightheadedness. This occurred earlier today. Patient was not doing any strenous activities at this time. However he was ambulating and felt lightheaded. He denies any dizziness. This improved when he sat down. However, his checked his BP and HR and noticed his HR was extremely low. Normally he has HR in the mid 60s, but this was in the 40s. She states that his HR was in the 50s in the past hospital stay. She is concerned that this is becoming a pattern and is worried that something is being missed. Giving that his symptoms were similar to the time he had his TIA. And he did not have any focal weakness now nor that previous admission, she wonders if it was not a TIA but a bradycardic spell. In regards to his medicine, the patient reports no changes to his BB and CCB dose. Admission Exam Per Admitting Provider Constitutional: WD/WN, vitals as above well developed and well nourished ENMT: external ear and nose normal, oropharynx normal Neck: trachea midline, no thyromegaly Respiratory: normal respiratory effort, lungs clear to auscultation (except for bibasilar rales) Cardiovascular: Rate/Rhythm: regular rhythm and + bradycardic Heart Sounds: normal S1 and normal S2 Gastrointestinal (Abdomen): normal bowel sounds, soft, nontender, no hepatosplenomegaly Musculoskeletal: Head/Neck/Chest: + head abnormal to inspection, normocephalic and head atraumatic Skin: no rashes, warm and dry Neurologic: awake (follows commands and moves all 4 extremities) Psychiatric: A+Ox3, euthymic affect Lymphatic: no cervical or axillary lymphadenopathy Principal Diagnosis Symptomatic bradycardia Discharge Exam Constitutional WD/WN, vitals as above Eyes PERRL, conjunctivae normal, anicteric sclerae ENMT external ear and nose normal, oropharynx normal Neck trachea midline, no thyromegaly Respiratory normal respiratory effort, lungs clear to auscultation Cardiovascular RRR, no murmur, no edema Gastrointestinal (Abdomen) normal bowel sounds, soft, nontender, no hepatosplenomegaly Musculoskeletal no cyanosis or clubbing, extremities motor strength 5/5 Skin no rashes, warm and dry Neurologic patellar DTR's 2+ bilat, sensation intact and PERRL, EOMI, accommodation nl, no face palsy, no dysarthria Psychiatric A+Ox3, euthymic affect Lymphatic no cervical or axillary lymphadenopathy Discharge Data Allergies Allergy/AdvReac Type Severity Reaction Status Date / Time clopidogrel [From Plavix] Allergy Severe Anaphylaxis Verified 06/06/19 18:34 pantoprazole Allergy Severe Unknown Verified 06/05/19 23:34 Consultations 06/06/19 00:09 ED Decision to Admit Stat 06/06/19 03:31 Consult Case Management - Discharge Planning Routine 06/06/19 04:01 Consult Cardiology Routine Ordered Studies 06/05/19 22:19 CT angio chest PE protocol Stat US venous doppler LE BI Urgent 06/06/19 16:23 CT abd pelvis IV con only Routine Hospital Course (1) Symptomatic bradycardia: - HR improving with holding both his home verapamil and Bystolic HR consistently in 60-80 range - consult from Dr. Ragsdale, most likely that the bradycardia is iatrogenic. echo normal, no arrhythmias has 1st degree AV block which is chronic issue follow up with cardiology on Sunday, bystolic and verapamil discontinued on discharge (2) Hypervolemia: Admitted with small bilateral pleural effusions on imaging, LE and scrotal edema, elevated proBNP, and weight gain. ECHO with preserved EF as before, no WMAs. - Likely related to recent copious IVFs, discontinuation of HCTZ for hyponatremia last admission, and fluid retention from IV and po steroid use for recent anaphylaxis - Much improved with periodic IV Lasix will continue on Lasix 20mg daily on discharge for both volume control as well as BP control (3) Elevated d-dimer: D-DIMER was elevated, however his clinical picture does not appear to be of that someone with a pulmonary emboli. D-dimer could certainly be elevated secondary to recent anaphylaxis as confirmed with [employer] safety engineer on the phone. - Would not treat (4) Gout: Stable -continue home allopurinol (5) Anaphylactic reaction: Recent admission 3 days ago for anaphylaxis thought to be secondary to possibly Protonix, Plavix, or wheat beer. - Was treated with Epi pen, IV and then po steroids, pepcid, Zyrtec, and Benadryl - Resolved - Finish out prednisone taper down by 10mg each day until done--> 30mg today - Continue pepcid 20mg bid, Zyrtec 10mg daily - Has scheduled f/u with [employer] systems safety engineer in a few weeks (6) Hyponatremia: Now completely resolved with being off HCTZ -continue to follow BMP (7) Prediabetes: last admission found to have very mildly elevated HgbA1C -counseled previously on dietary changes and weight loss (8) CAD (coronary artery disease), [place] coronary artery: H/o high calcium score on CTA Coronaries and had subsequent cath showing 40% lesion LAD and another vessel with mod, nonobstructive disease -continue medical management with ASA, statin - Bystolic stopped due to bradycardia (9) GERD (gastroesophageal reflux disease): long-standing, has frequent breakthrough symptoms -continue pepcid bid -PPIs ALL DISCONTINUED previously in case of cause of anaphylaxis (10) Hyperlipidemia: continue statin (11) Hypertension: BP has required 4 meds in the past to control. Verapamil and Bystolic now stopped as above - Continue valsartan 320mg daily - started on lasix 20mg po daily, tolerating well close follow up with PCP this week for BP check is RN, she will follow his vitals at home (12) Allergic rhinitis: -continue Zyrtec, FLonase (13) Abdominal pain: Has c/o bulge in rt groin and RLQ pain CT abd/pel ordered and shows bilat fat-containing inguinal hernias, pericolonic edema, and mild pericholecystic fluid LFTs mildly elevated as below likely from hepatic congestion -consider RUQ US (14) Elevated transaminase measurement: resolving (15) DVT prophylaxis: Lovenox SQ Dispo-remain on tele Total Time Total Time Spent Total Time Spent (In Minutes): 35 minutes Total Time Includes: Examination of the Patient, Discharge Planning, Medication Reconciliation and Communication With Other Providers Discharge Plan Discharge Items Patient Disposition: Home - Self-Care Reason For Visit: SYMPTOMATIC BRADYCARDIA Discharge Diagnosis: Symptomatic bradycardia Hypertension Condition: Good Discharge Goals: Improve disease control and Improve function Activity: Resume your previous activity Non-emergency contact: Primary Care Provider and Procurement Director Call non-emergency contact if: you have any medication questions, your symptoms worsen and you have a fever Follow-up/Referrals: Guero Gonzalez, [Primary Care Provider] - Diet: Heart Healthy Addtl Provider Instructions: Medications: - LASIX: 20mg daily added, for volume control as well as blood pressure control, tolerating well - BYSTOLIC and VERAPAMIL: stopped this admission, continue to hold - PREDNISONE: continue on taper, today you got 30mg Bradycardia: HR in 30's at times, stopped Bystolic and Verapamil HR now in the 60-80's evaluated by cardiology, feel that low HR is iatrogenic from medications echo was normal no arrhythmias on the monitor, no indication for pace maker follow up with Dr. Gonzalez this week and cardiology on Sunday Hypertension BP has been in 140-150's systolic continue on Valsartan 320mg Lasix 20mg daily added since the verapamil and bystolic were stopped recommend follow up with Dr. Gonzalez this week for blood pressure check may require further medications but need to avoid any rate controlling medications Recent anaphylaxis: continue on Prednisone taper Prescriptions: New furosemide 20 mg Tablet 20 mg PO QAM 30 Days Qty: 30 RF: 0 Continued omega-3 fatty acids [Fish Oil Concentrate] 1,000 mg capsule 1,000 mg PO DAILY RF: 0 albuterol sulfate [ProAir HFA] 90 mcg/actuation HFA aerosol inhaler 2 puff INHALATION Q4H PRN (Reason: Shortness Of Breath Or Wheezing) RF: 0 cetirizine [Zyrtec] 10 mg tablet 10 mg PO QAM RF: 0 fluticasone propionate [Flonase Allergy Relief] 50 mcg/actuation spray,suspension 1 spray INTRANASAL BID RF: 0 naproxen 500 mg tablet 500 mg PO BID PRN (Reason: Pain) RF: 0 Shingrix (PF) 50 mcg/0.5 mL suspension for reconstitution 0.5 ml IM .COMPLEX Qty: 1 RF: 1 montelukast 10 mg tablet 10 mg PO HS Qty: 90 RF: 3 rosuvastatin 20 mg tablet 20 mg PO HS Qty: 90 RF: 3 allopurinol 100 mg tablet 100 mg PO BID Qty: 180 RF: 3 aspirin [Ecotrin Low Strength] 81 mg Tablet,Delayed Release (Dr/Ec) 81 mg PO QAM Qty: 30 RF: 0 famotidine 20 mg Tablet 20 mg PO BID Qty: 60 RF: 0 prednisone 10 mg tablet 60 mg PO DAILY Qty: 21 RF: 0 diphenhydramine HCl [Benadryl] 25 mg capsule 25 mg PO TID PRN (Reason: allergy symptoms) Qty: 30 RF: 0 valsartan 320 mg tablet 320 mg PO DAILY Qty: 30 RF: 0 epinephrine [EpiPen 2-Juan] 0.3 mg/0.3 mL auto-injector 0.3 mg IM Q3H PRN (Reason: anaphylaxis) Qty: 1 RF: 0 Discontinued verapamil 120 mg tablet 120 mg PO BID Qty: 180 RF: 3 Bystolic 5 mg tablet 5 mg PO HS RF: 0 Stand-Alone Forms: [facility] [place] Discharge Orders: Discharge Order (Routine); Ordered 06/08/19 Ordered By: Prieto Fitzgerald Admission Data Admit Date/Time: 06/06/19 01:38 Attending Provider: Prieto Fitzgerald Admit Provider: Fermin Dickerson Primary Care Provider: Guero Gonzalez Other Providers: Salomon Ashton ; Munir Gonzalez Service: Telemetry
== END 2019-06-08 13:04 | disposition home or self-care (01) | DRG 309 ==
LOC: ED 20:27 → 2S 06-06 01:38 → SUATTDRO 06-06 01:38 → 2S 06-06 01:53